=== PATIENT | male | born 1980 | race Caucasian/White ===

== ENCOUNTER 2018-03-14 12:51 | Emergency (ER) | payer SELFPAY ==
[~2018-03-14] VITALS: Ht 180.3 cm; Wt 83.9 kg
[~2018-03-14 12:51] MED LIST: ACETAMINOPHEN-1 EAC1 ORAL; BACTRIM DS TAB1 EAC1 ORAL; CEPHALEXIN500 MG ORAL; CLINDAMYCIN HC300 MG ORAL; IBUPROFEN800 MG ORAL; KEFLEX500 MG ORAL; NKM; NORCO 5-325 TA1 EACH ORAL
[2018-03-14 13:41] VITALS: BP 128/78
[2018-03-14] MEDS ORDERED: Ketorolac 30mg Inj IV ONE (13:45)
[2018-03-14] MEDS ORDERED: Isovue-300 100ml vial INJ PRN (13:45)
--- NOTE | 2018-03-14 14:15 | Emergency Room Report ---
History of Present Illness General Chief Complaint: Lower Back Pain or Injury Source: Patient (Omkar Founrier M.D.) Present Illness HPI The patient presents with 3 days of headache and back pain. The back pain is lumbar area. They have headache is diffuse. She been severe. The patient denies any fevers or chills but has had sweats at night. The patient uses $40 or half a gram of heroin a day. He denies HIV. He's never had pain like this before. He complains about numbness on both of his feet. Pain rated at 9/10, constant both head and lower back. Not radiating to legs or neck. No chest pain, dyspnea, NVD, dysuria. No other joint pain. No change vision. No SI or HI. He states he has tested negative for Hep C and HIV in the past, but does not know his status at this time. Treated in past for abscesses. (Omkar Fournier M.D.) Allergies: Coded Allergies: No Known Allergies (Unverified , 12/11/13) Patient History Past Medical History: see triage record Social History: Reports: smoking, drug use Social History Narrative Reviewed Nursing Documentation: PMH: Agreed; PSxH: Agreed (Omkar Fournier M.D.) Nursing Documentation-PMH Past Medical History: No Stated History Hx Cardiac Problems: No Hx Hypertension: No Hx Pacemaker: No Hx Asthma: No Hx COPD: No Hx Diabetes: No Hx Cancer: No Hx Gastrointestinal Problems: No Hx Dialysis: No Hx Cerebrovascular Accident: No Hx Seizures: No (Omkar Fournier M.D.) Review of Systems All Other Systems: negative except mentioned in HPI (Omkar Fournier M.D.) Physical Exam Vital Signs Date Time Temp Pulse Resp B/P (MAP) Pulse Ox O2 Delivery O2 Flow Rate FiO2 03/14/18 13:21 98.9 98 16 128/82 96 Room Air 99.0 Sp02 EP Interpretation: reviewed, normal General Appearance: no apparent distress, GCS 15, non-toxic, thin Head: normocephalic Eyes: bilateral eye normal inspection, bilateral eye PERRL, bilateral eye EOMI ENT: moist mucus membranes Neck: supple, no meningismus, no bony tend Respiratory: chest non-tender, lungs clear, normal breath sounds Cardiovascular #1: regular rate, rhythm Cardiovascular #2: 2+ radial (R) Gastrointestinal: normal inspection, normal bowel sounds, non tender, no mass, non-distended, scaphoid Musculoskeletal: gait/station normal, normal range of motion, tender - lumbar area, more diffuse, not point or bone tenderness Neurologic: alert, oriented x3, motor strength/tone normal, DTRs symmetric, cerebellar normal, normal gait, sensory deficit Psychiatric: mood/affect normal Skin: warm/dry, other - track siegel (Omkar Fournier M.D.) Medical Decision Making Diagnostic Impression: Primary Impression: Low back pain Qualified Codes: M54.5 - Low back pain Additional Impression: Headache Qualified Codes: R51 - Headache ER Course Patient presents with IV drug abuse, headache and back pain. Differential includes migraine, withdrawal, abscess, subacute bacterial endocarditis amongst others. Patient is high risk for several serious drug related complications. Evaluation will be with EKG, CT of the head and lumbar spine with contrast, blood cultures, lactate, sedimentation rate and other labs. The patient will be treated with IV hydration and Toradol. At this point there is no meningismus and lumbar puncture is not indicated. Depending on what labs are will be a low threshold for starting IV antibiotics. Delay with labs and IV. Labs and CT pending. Pain somewhat improved with analgesia. Signed out to Dr. Berkowitz. (Omkar Fournier M.D.) ER Course Hospital Course 37-year-old male presented with headache and back spasms. History of IV drug use Clinical course Patient initially seen and evaluated by Dr Fournier; please see his note for full history and physical Upon sign out to me patient was pending IV access, lab draw and CT of head and L -spine with contrast IV access ultimately established but unable to draw blood. Multiple attempts by phlebotomy made to draw blood but unsuccessful. Respiratory therapist unable to perform arterial stick. I performed femoral stick to obtain blood Labs - minimal leukocytosis, eletrolytes ok CT of head and CT of L-spine with contrast showed no evidence of acute processes. No evidence of epidural abscess On reassessment patient is feeling better. No fever. No nuchal rigidity. No focal neurological deficits. Initially there was discussion of admitting the patient for concern of IV drug use and possible epidural abscess. Given normal labs and negative workup I believe patient could be discharged. Patient states he would prefer to be discharged to home I feel this is a highly complex case requiring extensive working including EKG/ Rhythm strip, Xray/CT/US, Blood/urine lab work, repeat exams while in ED, and administration of strong opiates/narcotics for pain control, admission to hospital or close patient follow up. Diagnosis - low back pain, headache Stable and discharged to home with Rx Tramadol, Robaxin, Motrin. Followup with PMD. Return to ED if symptoms recur or worsen Labs Test 03/14/18 15:00 03/14/18 15:06 03/14/18 18:20 Urine Color Ruth Urine Appearance Clear Urine pH 6 (4.5-8.0) Urine Specific [place] 1.015 (1.005-1.035) Urine Protein 2+ (NEGATIVE) Urine Glucose (UA) Negative (NEGATIVE) Urine Ketones 1+ (NEGATIVE) Urine Occult Blood 1+ (NEGATIVE) Urine Nitrite Negative (NEGATIVE) Urine Bilirubin 1+ (NEGATIVE) Urine Ictotest Negative Urine Urobilinogen 12 MG/DL (0.0-1.0) Urine Leukocyte Esterase 1+ (NEGATIVE) Urine RBC 0-2 /HPF (0 - 0) Urine WBC 2-4 /HPF (0 - 0) Urine Squamous Epithelial Cells None /LPF (NONE/OCC) Urine Bacteria Few /HPF (NONE) Urine Mucus Many /LPF (NONE/OCC) Urine Opiates Screen Positive (NEGATIVE) Urine Barbiturates Screen Negative (NEGATIVE) Phencyclidine (PCP) Screen Negative (NEGATIVE) Urine Amphetamines Screen Positive (NEGATIVE) Urine Benzodiazepines Screen Negative (NEGATIVE) Urine Cocaine Screen Negative (NEGATIVE) Urine Marijuana (THC) Screen Positive (NEGATIVE) White Blood Count 12.6 K/UL (4.8-10.8) Red Blood Count 4.04 M/UL (4.70-6.10) Hemoglobin 11.5 G/DL (14.2-18.0) Hematocrit 33.3 % (42.0-52.0) Mean Corpuscular Volume 82 FL (80-99) Mean Corpuscular Hemoglobin 28.4 PG (27.0-31.0) Mean Corpuscular Hemoglobin Concent 34.5 G/DL (32.0-36.0) Red Cell Distribution Width 12.1 % (11.6-14.8) Platelet Count 204 K/UL (150-450) Mean Platelet Volume 7.1 FL (6.5-10.1) Neutrophils (%) (Auto) 75.1 % (45.0-75.0) Lymphocytes (%) (Auto) 17.3 % (20.0-45.0) Monocytes (%) (Auto) 6.7 % (1.0-10.0) Eosinophils (%) (Auto) 0.1 % (0.0-3.0) Basophils (%) (Auto) 0.9 % (0.0-2.0) Erythrocyte Sedimentation Rate 94 MM/HR (0-15) Prothrombin Time 11.9 SEC (9.30-11.50) Prothromb Time International Ratio 1.1 (0.9-1.1) Activated Partial Thromboplast Time 32 SEC (23-33) Sodium Level 133 MMOL/L (136-145) Potassium Level 3.7 MMOL/L (3.5-5.1) Chloride Level 99 MMOL/L (98-107) Carbon Dioxide Level 24 MMOL/L (21-32) Anion Gap 10 mmol/L (5-15) Blood Urea Nitrogen 13 mg/dL (7-18) Creatinine 0.7 MG/DL (0.55-1.30) Estimat Glomerular Filtration Rate > 60 mL/min (>60) Glucose Level 115 MG/DL (74-106) Lactic Acid Level 1.00 mmol/L (0.4-2.0) Calcium Level 8.2 MG/DL (8.5-10.1) Phosphorus Level 2.9 MG/DL (2.5-4.9) Magnesium Level 1.6 MG/DL (1.8-2.4) Total Bilirubin 0.6 MG/DL (0.2-1.0) Aspartate Amino Transf (AST/SGOT) 26 U/L (15-37) Alanine Aminotransferase (ALT/SGPT) 28 U/L (12-78) Alkaline Phosphatase 132 U/L (46-116) Total Creatine Kinase 26 U/L (26-308) Creatine Kinase MB 0.5 NG/ML (0.0-3.6) Creatine Kinase MB Relative Index 1.9 Troponin I 0.000 ng/mL (0.000-0.056) Pro-B-Type Natriuretic Peptide 321 pg/mL (0-125) Total Protein 7.4 G/DL (6.4-8.2) Albumin 2.6 G/DL (3.4-5.0) Globulin 4.8 g/dL Albumin/Globulin Ratio 0.5 (1.0-2.7) Serum Alcohol < 3 mg/dL (Teofilo Berkowitz MD) EKG Diagnostic Results Rate: normal Rhythm: NSR ST Segments: no acute changes (Omkar Fournier M.D.) Rhythm Strip Diag. Results EP Interpretation: yes Rhythm: NSR, no PVC's, no ectopy (Omkar Fournier M.D.) Chest X-Ray Diagnostic Results Chest X-Ray Diagnostic Results : Chest X-Ray Ordered: Yes # of Views/Limited/Complete: 1 View Indication: Other EP Interpretation: Yes Interpretation: no consolidation, no effusion, no pneumothorax Impression: Other Electronically Signed by: Electronically signed by Omkar Fournier MD (Omkar Fournier M.D.) CT/MRI/US Diagnostic Results CT/MRI/US Diagnostic Results #1: Imaging Test Ordered: CT HEad Impression no acute process CT/MRI/US Diagnostic Results #2: Imaging Test Ordered: CT L spine Impression no acute process (Teofilo Berkowitz MD) Last Vital Signs Date Time Temp Pulse Resp B/P (MAP) Pulse Ox O2 Delivery O2 Flow Rate FiO2 03/14/18 18:51 98.4 03/14/18 13:41 90 17 128/78 100 Room Air Status: improved (Omkar Fournier M.D.) Status: improved (Teofilo Berkowitz MD) Disposition: HOME, SELF-CARE Condition: Stable Scripts Methocarbamol* (ROBAXIN-750*) 750 Mg Tablet 750 MG PO TID, #21 TAB 0 Refills Prov: Teofilo Berkowitz MD 03/14/18 Ibuprofen* (MOTRIN*) 600 Mg Tablet 600 MG ORAL Q8H PRN for For Pain, #30 TAB 0 Refills Prov: Teofilo Berkowitz MD 03/14/18 Tramadol Hcl* (ULTRAM*) 50 Mg Tablet 50 MG ORAL Q6H PRN for For Pain, #30 TAB 0 Refills Prov: Teofilo Berkowitz MD 03/14/18 Referrals: NOT CHOSEN [facility]/,REFERRING (PCP) Omkar Fournier M.D. Mar 14, 2018 14:15 Teofilo Berkowitz MD Mar 14, 2018 22:33
--- NOTE | 2018-03-14 15:24 | Diagnostic Imaging Report ---
Indication: Chest pain Comparison: None A single view chest radiograph was obtained. Findings: Cardiomediastinal appearance is within normal limits for age. Pulmonary vascularity is appropriate. The diaphragmatic contour is smooth and costophrenic angles are sharp. No pleural effusions are identified. The bones are unremarkable. Impression: No acute findings
[2018-03-14 15:54] LABS: APPEARANCE,URINE CLEAR; BILIRUBIN, URINE 1+ (NEGATIVE); GLUCOSE, URINE (UA) NEGATIVE (NEGATIVE); KETONES,URINE 1+ (NEGATIVE); LEUKOCYTE ESTERASE ,URINE 1+ (NEGATIVE); NITRITE,URINE NEGATIVE (NEGATIVE); PH,URINE 6 (4.5-8.0); PROTEIN,URINE 2+ (NEGATIVE); UROBILINOGEN,URINE 12 MG/DL (0.0-1.0)
[2018-03-14 15:56] LABS: COLOR,URINE AMBER
[2018-03-14] MEDS ORDERED: Acetaminophen 500mg (ES) tab PO ONE (18:45)
[2018-03-14] MEDS ORDERED: Methocarbamol 750mg tab ORAL ONE (18:45)
[2018-03-14 18:52] LABS: BASOPHILS % (AUTO) 0.9 % (0.0-2.0); EOSINOPHILS % (AUTO) 0.1 % (0.0-3.0); HEMATOCRIT 33.3 % (42.0-52.0); HEMOGLOBIN 11.5 G/DL (14.2-18.0); LYMPHOCYTES % (AUTO) 17.3 % (20.0-45.0); MEAN CORPUSCULAR VOLUME 82 FL (80-99); MONOCYTES % (AUTO) 6.7 % (1.0-10.0); NEUTROPHILS % (AUTO) 75.1 % (45.0-75.0); PLATELET COUNT 204 K/UL (150-450); RED BLOOD COUNT 4.04 M/UL (4.70-6.10); RED CELL DISTRIBUTION WIDTH 12.1 % (11.6-14.8); WHITE BLOOD COUNT 12.6 K/UL (4.8-10.8)
[2018-03-14 19:10] LABS: INR 1.1 (0.9-1.1)
[2018-03-14 19:13] LABS: ANION GAP 10 mmol/L (5-15); BLOOD UREA NITROGEN 13 mg/dL (7-18); CALCIUM 8.2 MG/DL (8.5-10.1); CARBON DIOXIDE 24 MMOL/L (21-32); CHLORIDE 99 MMOL/L (98-107); CREATININE 0.7 MG/DL (0.55-1.30); POTASSIUM 3.7 MMOL/L (3.5-5.1); SODIUM 133 MMOL/L (136-145)
[2018-03-14 19:29] LABS: ALANINE AMINOTRANSFERASE 28 U/L (12-78); ALBUMIN 2.6 G/DL (3.4-5.0); ALBUMIN/GLOBULIN RATIO 0.5 (1.0-2.7); ALKALINE PHOSPHATASE 132 U/L (46-116); ASPARTATE AMINO TRANSFERASE 26 U/L (15-37); BILIRUBIN,TOTAL 0.6 MG/DL (0.2-1.0); CKMB 0.5 NG/ML (0.0-3.6); CREATINE KINASE 26 U/L (26-308); PHOSPHORUS 2.9 MG/DL (2.5-4.9)
[2018-03-14 20:00] VITALS: BP 138/89
[2018-03-14] MEDS: Morphine Sulfate 4mg/ml Inj IVP ONE ×2 (20:30→21:16)
[2018-03-14] MEDS ORDERED: ROBAXIN-750750 MG PO (21:54)
[2018-03-14] MEDS ORDERED: IBUPROFEN600 MG ORAL (21:54)
[2018-03-14] MEDS ORDERED: TRAMADOL HCL50 MG ORAL (21:54)
[2018-03-14 22:35] VITALS: BP 125/77
--- NOTE | 2018-03-15 08:43 | Diagnostic Imaging Report ---
Indication: Headache. Possible intracranial abscess. Technique: CT of the head without and with contrast. Noncontrast CT scanning of the head was performed utilizing automated exposure control for dose reduction. Axial and coronal reconstructions were obtained. Subsequently, IV contrast was administered and post contrast CT of the head was performed utilizing automated exposure control for dose reduction. Axial and coronal reconstructions obtained. Comparison: None CT dose: Total DLP 3294.43 mGycm; CTDI vol 70.38,70.38,14.88 mGy Findings: Is no that postcontrast images are degraded by patient motion, particularly degrading images through the vertex and superior brain. Within these limitations the following observations are made: There is no acute intracranial hemorrhage, mass effect or cortical edema. The ventricles, cisterns and sulci are within normal limits for age. No definite focus of abnormal postcontrast enhancement visualized vascular structures appear grossly patent however please note this evaluation is not protocoled for vascular evaluation. Mastoid air cells are clear. There is mild paranasal sinus mucosal thickening. No focal lesions of the bony calvarium or soft tissues of the scalp are seen. IMPRESSION: No evidence of acute intracranial hemorrhage, mass effect or cortical edema. No definite focus of abnormal postcontrast enhancement however postcontrast images are degraded by patient motion. MRI may be obtained for more sensitive evaluation as clinically indicated. The CT scanner at [facility] is accredited by the [employer] and the scans are performed using protocols designed to limit radiation exposure to as low as reasonably achievable to attain images of sufficient resolution adequate for diagnostic evaluation.
--- NOTE | 2018-03-15 09:04 | Diagnostic Imaging Report ---
Indication: Back pain. Possible abscess Technique: CT of the lumbar spine with intravenous contrast performed utilizing automated exposure control for dose reduction. Axial and coronal reconstructions obtained. Comparison: None CT dose: Total DLP 3294.43 mGycm; CTDI vol 70.38,70.38,14.88 mGy Findings: There are 5 nonrib-bearing lumbar-type vertebral bodies, assuming 12 paired ribs. There is no evidence of acute fracture. Vertebral body heights and disc spaces are maintained. No evidence to suggest spondylolisthesis. No obvious significant bony central canal stenosis or bony foraminal narrowing. No prevertebral soft tissue abnormality is identified. No well-defined/drainable fluid collection is appreciated. Please note that the central canal, epidural space, cord, disks and nerve roots are better evaluated on MRI, which can be obtained as clinically indicated for more sensitive evaluation. Imaged lung bases are clear. Imaged portions of the visceral abdomen and pelvis are grossly unremarkable. Abdominal aorta is normal in caliber. IMPRESSION: * No evidence of acute fracture or malalignment. * No definite focal soft tissue abnormality. This corresponds with the statrad preliminary report. MRI of the lumbar spine can be obtained for more sensitive evaluation as clinically indicated. The CT scanner at [facility] is accredited by the [employer] and the scans are performed using protocols designed to limit radiation exposure to as low as reasonably achievable to attain images of sufficient resolution adequate for diagnostic evaluation.
--- NOTE | 2018-03-17 12:20 | Cardiology Report ---
APPROVED REPORT EKG Measurement Heart [id number] Normal sinus rhythm Cannot rule out Anterior infarct, age undetermined Abnormal ECG
== END 2018-03-14 22:33 | disposition home or self-care (01) ==
LOC: EMR 14:02 → UNDOADMIN 15:01 → 4W 15:01 → EDBEDREQ 15:05 → 4W 15:57 → EMR 22:33
DX: M54.5 Low back pain (principal); R51 Headache; F17.200 Nicotine dependence, unspecified, uncomplicated; F11.10 Opioid abuse, uncomplicated
CPT/HCPCS: 36415; 70460; 71045; 72132; 80053; 80307; 81003; 82550; 82553; 83605; 83735; 83880; 84100; 84484; 85025; 85610; 85651; 85730; 87040; 87181; 93005; 99284; G0480; J1885; J2270; Q9967; 80329

== ENCOUNTER 2018-03-21 16:37 | Emergency (ER) | payer SELFPAY ==
[~2018-03-21 16:37] MED LIST changes: +IBUPROFEN600 MG ORAL; +ROBAXIN-750750 MG PO; +TRAMADOL HCL50 MG ORAL
--- NOTE | 2018-03-21 20:00 | Emergency Room Report ---
History of Present Illness General Chief Complaint: To Be Triaged Present Illness HPI This patient left prior to evaluation by medical provider. Allergies: Coded Allergies: No Known Allergies (Unverified , 12/11/13) Nursing Documentation-PMH Hx Cardiac Problems: No Hx Hypertension: No Hx Pacemaker: No Hx Asthma: No Hx COPD: No Hx Diabetes: No Hx Cancer: No Hx Gastrointestinal Problems: No Hx Dialysis: No Hx Cerebrovascular Accident: No Hx Seizures: No Medical Decision Making PA Attestation Dr. Muñoz is my supervising Physician whom patient management has been discussed with. Diagnostic Impression: Primary Impression: left without being seen ER Course This patient left prior to evaluation by medical provider. Disposition: LEFT W/OUT BEING SEEN Condition: Unknown Referrals: NOT CHOSEN [facility]/,REFERRING (PCP) Sue Lopez Mar 21, 2018 20:00
== END 2018-03-21 16:50 | disposition left against medical advice (07) ==
LOC: EMR 16:50
DX: Z53.21 Procedure and treatment not carried out due to patient leaving prior to being seen by health care provider (principal)
CPT/HCPCS: 99281

== ENCOUNTER 2018-03-22 11:19 | Inpatient (IN) | payer MEDICAID ==
[~2018-03-22] VITALS: Ht 180.3 cm; Wt 97.5 kg
[2018-03-22] VITALS (10 sets, daily range): BP systolic 92–149; BP diastolic 50–90
[2018-03-22] MEDS ORDERED: Vancomycin 1 GM in NS 275 ML IV ONE (12:00)
[2018-03-22] MEDS ORDERED: Cefepime HCl 1 GM in NS 55 ML IV SCH (12:00)
[2018-03-22 13:06] LABS: APPEARANCE,URINE TURBID; BILIRUBIN, URINE 2+ (NEGATIVE); GLUCOSE, URINE (UA) NEGATIVE (NEGATIVE); KETONES,URINE NEGATIVE (NEGATIVE); LEUKOCYTE ESTERASE ,URINE 2+ (NEGATIVE); NITRITE,URINE NEGATIVE (NEGATIVE); PH,URINE 5 (4.5-8.0); PROTEIN,URINE 2+ (NEGATIVE); UROBILINOGEN,URINE 12 MG/DL (0.0-1.0)
[2018-03-22 13:07] LABS: COLOR,URINE YELLOW
[2018-03-22 13:24] LABS: HEMOGLOBIN 11.4 G/DL (14.2-18.0); MEAN CORPUSCULAR VOLUME 80 FL (80-99); PLATELET COUNT 60 K/UL (150-450); RED CELL DISTRIBUTION WIDTH 12.6 % (11.6-14.8); WHITE BLOOD COUNT 19.9 K/UL (4.8-10.8)
[2018-03-22 13:58] LABS: ALANINE AMINOTRANSFERASE 33 U/L (12-78); ALBUMIN 1.6 G/DL (3.4-5.0); ALBUMIN/GLOBULIN RATIO 0.3 (1.0-2.7); ALKALINE PHOSPHATASE 274 U/L (46-116); ANION GAP 9 mmol/L (5-15); ASPARTATE AMINO TRANSFERASE 46 U/L (15-37); BILIRUBIN,TOTAL 3.3 MG/DL (0.2-1.0); BLOOD UREA NITROGEN 28 mg/dL (7-18); CALCIUM 7.6 MG/DL (8.5-10.1); CARBON DIOXIDE 27 MMOL/L (21-32); CHLORIDE 88 MMOL/L (98-107); CKMB < 0.5 NG/ML (0.0-3.6); CREATINE KINASE 17 U/L (26-308); CREATININE 1.3 MG/DL (0.55-1.30); POTASSIUM 2.5 MMOL/L (3.5-5.1); SODIUM 124 MMOL/L (136-145)
[2018-03-22] MEDS ORDERED: Lidocaine 1% MPF 10mg/ml 5ml INJ ONE (14:30)
[2018-03-22] MEDS ORDERED: Lidocaine 1% MPF 10mg/ml 5ml ONE (14:33)
--- NOTE | 2018-03-22 14:53 | Diagnostic Imaging Report ---
Indication: Shortness of breath Technique: One view of the chest Comparison: 03/14/2018 Findings: Interim development of diffuse bilateral interstitial disease and innumerable bilateral subcentimeter nodular opacities. There is blunting of the left costophrenic sulcus and equivocally of the right. The heart size is normal. Impression: Diffuse extensive bilateral interstitial disease and subcentimeter nodules, rapid development of which suggests pulmonary edema versus rapidly developing interstitial infiltrates. Multinodularity raises concern for multiple septic emboli. Possible bilateral pleural effusions Findings discussed by phone with Dr. Eddy at the time of interpretation
--- NOTE | 2018-03-22 15:05 | Emergency Room Report ---
History of Present Illness General Chief Complaint: Pain Source: Patient Present Illness Allergies: Coded Allergies: No Known Allergies (Unverified , 12/11/13) Nursing Documentation-[facility] Past Medical History: No History, Except For Hx Cardiac Problems: No Hx Hypertension: No Hx Pacemaker: No Hx Asthma: No Hx COPD: No Hx Diabetes: No Hx Cancer: No Hx Gastrointestinal Problems: No Hx Dialysis: No Hx Cerebrovascular Accident: No Hx Seizures: No Physical Exam Vital Signs Date Time Temp Pulse Resp B/P (MAP) Pulse Ox O2 Delivery O2 Flow Rate FiO2 03/22/18 11:21 99.0 129 14 102/61 87 Room Air 99.0 Procedures Central Line Central Line : Consent: Emergent Central Line Lumen: triple Maximal Sterile Barrier Tech: yes cap, yes mask, yes sterile gown, yes sterile gloves, yes large sterile sheet, yes hand hygiene, yes chlorhexidine prep Central Line Postion: internal jugular (R) Anesthesia: local cc's of anesthesia: 5 Complications: none Central Line Post Position: sutured, good blood return, position confirmed w / CXR Attempts: One Patient Tolerated: Well Complications: None Medical Decision Making Last Vital Signs Date Time Temp Pulse Resp B/P (MAP) Pulse Ox O2 Delivery O2 Flow Rate FiO2 03/22/18 13:55 99.0 118 22 110/62 99 Room Air 99.0 Referrals: NOT CHOSEN [facility]/,REFERRING (PCP) Jaswant Salgado MD Mar 22, 2018 15:05
--- NOTE | 2018-03-22 15:13 | Emergency Room Report ---
History of Present Illness General Chief Complaint: Pain Source: Patient Present Illness HPI This patient has a history of heroin abuse. He states that he has had swelling in his legs and pain in his legs for the past few days. He states he also doesn 't feel well. He states that he last used heroin last night. He states most of his symptoms occurred over the past day. He states he is unable to walk secondary to pain in his legs. He has no other complaints. Allergies: Coded Allergies: No Known Allergies (Unverified , 12/11/13) Patient History Past Medical History: none, see triage record Social History: Reports: drug use - IV heroin Reviewed Nursing Documentation: PMH: Agreed; PSxH: Agreed Nursing Documentation-PMH Past Medical History: No History, Except For Hx Cardiac Problems: No Hx Hypertension: No Hx Pacemaker: No Hx Asthma: No Hx COPD: No Hx Diabetes: No Hx Cancer: No Hx Gastrointestinal Problems: No Hx Dialysis: No Hx Cerebrovascular Accident: No Hx Seizures: No Review of Systems All Other Systems: negative except mentioned in HPI Physical Exam Vital Signs Date Time Temp Pulse Resp B/P (MAP) Pulse Ox O2 Delivery O2 Flow Rate FiO2 03/22/18 11:21 99.0 129 14 102/61 87 Room Air 99.0 Sp02 EP Interpretation: reviewed, normal General Appearance: no apparent distress, alert, GCS 15, non-toxic Head: normocephalic, atraumatic Eyes: bilateral eye normal inspection, bilateral eye PERRL ENT: hearing grossly normal, normal pharynx, no angioedema, normal voice Neck: full range of motion, supple/symm/no masses Respiratory: no respiratory distress, no retraction, no accessory muscle use, crackles, speaking full sentences Cardiovascular #1: no edema, tachycardia Gastrointestinal: normal bowel sounds, non tender, soft, non-distended, no guarding, no rebound Rectal: deferred Musculoskeletal: back normal, swelling - Non-blanching bright erythematous macules and petichiae bilateral feet and legs and other areas of skin. Neurologic: alert, oriented x3, responsive, motor strength/tone normal, sensory intact, speech normal Psychiatric: judgement/insight normal, memory normal, mood/affect normal, no suicidal/homicidal ideation Skin: warm/dry, well hydrated, rash - See above in [facility] Medical Decision Making Diagnostic Impression: Primary Impression: Septic embolism Additional Impressions: Bacteremia Endocarditis Severe sepsis ER Course This patient has a physical exam sequela consistent with bacteremia, endocarditis and multiple septic emboli. Likely this is secondary to IV drug abuse. The patient has a petechial/purpuric rash consistent with septic emboli. I suspect endocarditis. The patient also has a chest x-ray that appears to be consistent with multiple septic emboli to the lungs. Unfortunately, the patient's veins were very difficult to access given the long history of IV drug use. The patient's veins are very scarred. There were multiple other critical patients in the emergency department and the nursing staff was having difficulty obtaining peripheral IV access. A central line was placed for IV access. The patient was given broad-spectrum antibiotics and aggressive IV fluid resuscitation. The patient is a very poor prognosis. Patient is in a critical condition. This patient is critically ill. This patient required complex medical decision- making, aggressive intervention, extensive laboratory workup and monitoring. Critical care time: 40 minutes. Laboratory Tests Test 03/22/18 12:45 03/22/18 13:05 Urine Color Yellow Urine Appearance Turbid Urine pH 5 (4.5-8.0) Urine Specific [place] 1.010 (1.005-1.035) Urine Protein 2+ (NEGATIVE) H Urine Glucose (UA) Negative (NEGATIVE) Urine Ketones Negative (NEGATIVE) Urine Occult Blood 3+ (NEGATIVE) H Urine Nitrite Negative (NEGATIVE) Urine Bilirubin 2+ (NEGATIVE) H Urine Ictotest Positive Urine Urobilinogen 12 MG/DL (0.0-1.0) H Urine Leukocyte Esterase 2+ (NEGATIVE) H Urine RBC 5-10 /HPF (0 - 0) H Urine WBC 10-15 /HPF (0 - 0) H Urine Squamous Epithelial Cells Occasional /LPF Urine Bacteria Few /HPF (NONE) Urine Hyaline Casts 0-2 /LPF (NONE) H White Blood Count 19.9 K/UL (4.8-10.8) H Red Blood Count 4.10 M/UL (4.70-6.10) L Hemoglobin 11.4 G/DL (14.2-18.0) L Hematocrit 33.0 % (42.0-52.0) L Mean Corpuscular Volume 80 FL (80-99) Mean Corpuscular Hemoglobin 27.7 PG (27.0-31.0) Mean Corpuscular Hemoglobin Concent 34.4 G/DL (32.0-36.0) Red Cell Distribution Width 12.6 % (11.6-14.8) Platelet Count 60 K/UL (150-450) L Mean Platelet Volume 11.0 FL (6.5-10.1) H Neutrophils (%) (Auto) % (45.0-75.0) Lymphocytes (%) (Auto) % (20.0-45.0) Monocytes (%) (Auto) % (1.0-10.0) Eosinophils (%) (Auto) % (0.0-3.0) Basophils (%) (Auto) % (0.0-2.0) Differential Total Cells Counted 100 Neutrophils % (Manual) 71 % (45-75) Lymphocytes % (Manual) 12 % (20-45) L Monocytes % (Manual) 5 % (1-10) Eosinophils % (Manual) 1 % (0-3) Basophils % (Manual) 0 % (0-2) Band Neutrophils 11 % (0-8) H Platelet Estimate Decreased L Platelet Morphology Normal Hypochromasia 2+ Sodium Level 124 MMOL/L (136-145) L Potassium Level 2.5 MMOL/L (3.5-5.1) *L Chloride Level 88 MMOL/L (98-107) L Carbon Dioxide Level 27 MMOL/L (21-32) Anion Gap 9 mmol/L (5-15) Blood Urea Nitrogen 28 mg/dL (7-18) H Creatinine 1.3 MG/DL (0.55-1.30) Estimate Glomerular Filtration Rate > 60 mL/min (>60) Glucose Level 152 MG/DL (74-106) H Lactic Acid Level 2.00 mmol/L (0.4-2.0) Calcium Level 7.6 MG/DL (8.5-10.1) L Total Bilirubin 3.3 MG/DL (0.2-1.0) H Direct Bilirubin 3.0 MG/DL (0.0-0.3) H Aspartate Amino Transferase (AST) 46 U/L (15-37) H Alanine Aminotransferase (ALT) 33 U/L (12-78) Alkaline Phosphatase 274 U/L (46-116) H Total Creatine Kinase 17 U/L (26-308) L Creatine Kinase MB < 0.5 NG/ML (0.0-3.6) Creatine Kinase MB Relative Index Troponin I 0.000 ng/mL (0.000-0.056) Total Protein 6.7 G/DL (6.4-8.2) Albumin 1.6 G/DL (3.4-5.0) L Globulin 5.1 g/dL Albumin/Globulin Ratio 0.3 (1.0-2.7) L EKG Diagnostic Results Rate: tachycardiac Rhythm: other - S.tachycardia ST Segments: other - NSST Rhythm Strip Diag. Results EP Interpretation: yes Rate: 120's Rhythm: no PVC's, no ectopy, other - S.tachycardia Chest X-Ray Diagnostic Results Chest X-Ray Diagnostic Results : Chest X-Ray Ordered: Yes # of Views/Limited/Complete: 1 View EP Interpretation: No Interpretation: other - Impression: Diffuse extensive bilateral interstitial disease and subcentimeter. see official report. Impression: Other Last Vital Signs Date Time Temp Pulse Resp B/P (MAP) Pulse Ox O2 Delivery O2 Flow Rate FiO2 03/22/18 13:55 99.0 118 22 110/62 99 Room Air 99.0 Disposition: ADMITTED INPATIENT Condition: Critical Referrals: NOT CHOSEN [facility]/,REFERRING (PCP) Gretchen Grijalva DO Mar 22, 2018 15:13
[2018-03-22] MEDS ORDERED: Vancomycin 1gm inj IVPB ONE (16:01)
--- NOTE | 2018-03-22 16:17 | Diagnostic Imaging Report ---
Indication: Shortness of breath, status post line placement Technique: One view of the chest Comparison: 3 hours earlier Findings: Interim placement of right jugular central venous catheter, tip which projects at the high right atrium. No pneumothorax. Again demonstrated is diffuse interstitial disease and innumerable bilateral pulmonary nodular opacities. As previously, small bilateral pleural effusions are suspected. Impression: Interim right jugular central venous catheter placement, no radiographically evident, location. Otherwise stable findings, as described
[2018-03-22] MEDS ORDERED: Zolpidem 5mg tab ORAL PRN (18:45)
[2018-03-22] MEDS ORDERED: Milk of Magnesia 30ml Ud ORAL PRN (18:45)
[2018-03-22] MEDS ORDERED: LORazepam Inj 2mg/ml 1ml IV PRN (18:45)
[2018-03-22] MEDS ORDERED: Sodium Bicarbonate 50ml Carp IV ONE ×3 (19:30→19:45)
[2018-03-22] MEDS ORDERED: Vancomycin 1.5 GM/D5W 250ML IVPB SCH (20:00)
[2018-03-22] MEDS: Heparin 5000 units/ml inj SUBQ SCH (20:27)
[2018-03-22] MEDS: Piperacillin/Tazobactam 3.375 GM in D5W 110 ML IVPB SCH (22:00)
[2018-03-23] VITALS (18 sets, daily range): BP systolic 94–151; BP diastolic 59–100
[2018-03-23] MEDS ORDERED: Vancomycin 1.5 GM/D5W 250ML IVPB SCH (04:00)
[2018-03-23] MEDS: Vancomycin 1gm/D5W 275ml IVPB SCH ×4 (04:24→11:50)
[2018-03-23 05:27] LABS: HEMATOCRIT 27.2 % (42.0-52.0); HEMOGLOBIN 9.4 G/DL (14.2-18.0); MEAN CORPUSCULAR VOLUME 80 FL (80-99); PLATELET COUNT 43 K/UL (150-450); RED BLOOD COUNT 3.39 M/UL (4.70-6.10); RED CELL DISTRIBUTION WIDTH 12.7 % (11.6-14.8); WHITE BLOOD COUNT 18.2 K/UL (4.8-10.8)
[2018-03-23] MEDS: Piperacillin/Tazobactam 3.375 GM in D5W 110 ML IVPB SCH ×3 (05:35→22:03)
[2018-03-23 06:08] LABS: ALANINE AMINOTRANSFERASE 40 U/L (12-78); ALBUMIN 1.2 G/DL (3.4-5.0); ALBUMIN/GLOBULIN RATIO 0.3 (1.0-2.7); ALKALINE PHOSPHATASE 221 U/L (46-116); ANION GAP 7 mmol/L (5-15); ASPARTATE AMINO TRANSFERASE 72 U/L (15-37); BILIRUBIN,TOTAL 4.2 MG/DL (0.2-1.0); BLOOD UREA NITROGEN 23 mg/dL (7-18); CALCIUM 7.4 MG/DL (8.5-10.1); CARBON DIOXIDE 28 MMOL/L (21-32); CHLORIDE 100 MMOL/L (98-107); SODIUM 135 MMOL/L (136-145)
[2018-03-23 06:11] LABS: BILIRUBIN,DIRECT 3.7 MG/DL (0.0-0.3)
[2018-03-23] MEDS: Heparin 5000 units/ml inj SUBQ SCH ×2 (09:00→20:44)
[2018-03-23 12:11] LABS: INR 1.4 (0.9-1.1)
[2018-03-23] MEDS ORDERED: Milk of Magnesia 30ml Ud ORAL PRN ×2 (17:00→18:45)
[2018-03-23] MEDS ORDERED: D5W 275ml ONE (17:36)
[2018-03-23] MEDS ORDERED: NS 500ML ONE (17:36)
[2018-03-23] MEDS ORDERED: Tubing IV Secondary IV ONE (17:36)
--- NOTE | 2018-03-23 17:45 | History and Physical Report ---
DATE OF ADMISSION: 03/22/2018 REASON FOR ADMISSION: Possible septic emboli. HISTORY OF PRESENT ILLNESS: A 37-year-old unfortunate male who presents to the emergency room with swelling in the legs, pain over the past few days. Also, feels short of breath, has been using heroin. He has multiple track siegel, unable to walk secondary to pain in the leg. The patient is seen and evaluated. PAST MEDICAL HISTORY: Essentially as above. MEDICATIONS: None. SOCIAL HISTORY: IV heroin abuse. REVIEW OF SYSTEMS: Otherwise negative. PHYSICAL EXAMINATION: GENERAL: A well-developed male, on BiPAP. VITAL SIGNS: Respiratory rate 25, heart rate 106, temperature 98.6 degrees, blood pressure 128/75. HEENT: Negative. NECK: Supple. LUNGS: Fairly clear breath sounds. CARDIAC: S1 and S2, slightly tachycardic. ABDOMEN: Soft and nondistended. EXTREMITIES: No edema. LABORATORY DATA: All reviewed. Potassium is 3. Liver enzymes are elevated. Albumin is only 1.2. Blood gases noted 7.49/29/62. Urinalysis with 5 to 10 reds, 10 to 15 whites, 3+ occult blood, white count 18, hemoglobin 9.4, and platelets of 43,000. IMPRESSION: 1. Chest x-ray possibly consistent with septic emboli. 2. Heroin abuse. 3. Elevated liver enzymes of unclear significance. 4. Significantly reduced albumin. 5. Severe protein-calorie malnutrition versus significant liver disease. 6. Lower extremity edema. 7. Hypoxemia. 8. Tachycardia. 9. Leukocytosis. 10. Possible sepsis. RECOMMENDATIONS: IV hydration for now. We will obtain venous ultrasound to rule out DVT. IV antibiotics. Echocardiogram to rule out endocarditis. Infectious Disease evaluation to follow. Oxygenation has improved. Replace potassium. Obtain CT of the chest. Obtain CT of the abdomen. Obtain PT and PTT to assess for liver damage and monitor clinically for change and further recommendations. Paddy Boss M.D. DR: Tanya JOB#: [id number] CC: JOIE
[2018-03-23] MEDS ORDERED: LORazepam Inj 2mg/ml 1ml IV PRN (18:00)
[2018-03-23] MEDS ORDERED: Zolpidem 5mg tab ORAL PRN ×2 (18:45→21:00)
[2018-03-23] MEDS: Morphine Sulfate 4mg/ml Inj (IV USE ONLY) IVP PRN (19:17)
[2018-03-23] MEDS ORDERED: Vancomycin 1 GM in D5W 275 ML IVPB SCH ×4 (20:00)
[2018-03-23] MEDS ORDERED: Dyna-Hex 2% Top Sol 2oz TOPIC SCH ×3 (20:00)
[2018-03-23] MEDS ORDERED: Heparin 5000 units/ml inj SUBQ SCH (21:00)
[2018-03-23] MEDS ORDERED: Piperacillin/Tazobactam 3.375 GM in D5W 110 ML IVPB SCH ×4 (22:00)
[2018-03-23] MEDS: Morphine Sulfate 2mg/ml Inj(IV/IM USE ONLY) IVP PRN (22:43)
[2018-03-24] VITALS: BP 124/66
[2018-03-24] MEDS: Vancomycin 1.5 GM/D5W 250ML IVPB SCH ×2 (03:12→12:35)
[2018-03-24 04:00] VITALS: BP 112/59
[2018-03-24] MEDS: LORazepam Inj 2mg/ml 1ml IV PRN ×2 (04:01→10:29)
[2018-03-24 05:26] LABS: HEMATOCRIT 25.5 % (42.0-52.0); HEMOGLOBIN 8.8 G/DL (14.2-18.0); MEAN CORPUSCULAR VOLUME 80 FL (80-99); PLATELET COUNT 87 K/UL (150-450); RED BLOOD COUNT 3.18 M/UL (4.70-6.10); RED CELL DISTRIBUTION WIDTH 12.5 % (11.6-14.8)
[2018-03-24 05:29] LABS: ALANINE AMINOTRANSFERASE 31 U/L (12-78); ALBUMIN 1.1 G/DL (3.4-5.0); ALBUMIN/GLOBULIN RATIO 0.2 (1.0-2.7); ALKALINE PHOSPHATASE 194 U/L (46-116); ANION GAP 8 mmol/L (5-15); ASPARTATE AMINO TRANSFERASE 43 U/L (15-37); BILIRUBIN,TOTAL 2.5 MG/DL (0.2-1.0); BLOOD UREA NITROGEN 25 mg/dL (7-18); CALCIUM 7.5 MG/DL (8.5-10.1); CARBON DIOXIDE 26 MMOL/L (21-32); CHLORIDE 98 MMOL/L (98-107); CREATININE 1.1 MG/DL (0.55-1.30); SODIUM 132 MMOL/L (136-145)
[2018-03-24 05:30] LABS: WHITE BLOOD COUNT 23.3 K/UL (4.8-10.8)
[2018-03-24] MEDS: Piperacillin/Tazobactam 3.375 GM in D5W 110 ML IVPB SCH (05:43)
[2018-03-24 05:46] LABS: BILIRUBIN,DIRECT 2.1 MG/DL (0.0-0.3)
[2018-03-24 08:00] VITALS: BP 127/77
[2018-03-24] MEDS: Heparin 5000 units/ml inj SUBQ SCH ×2 (09:00→20:35)
--- NOTE | 2018-03-24 09:35 | General Progress Note ---
Assessment/Plan Assessment/Plan 1. Chest x-ray possibly consistent with septic emboli. 2. Heroin abuse. 3. Elevated liver enzymes of unclear significance. 4. Significantly reduced albumin. 5. Severe protein-calorie malnutrition versus significant liver disease. 6. Lower extremity edema. 7. Hypoxemia. 8. Tachycardia. 9. Leukocytosis. 10. Sepsis. PLAN ID and CT chest pending po diet follow up labs monitor wbc Subjective Allergies: Coded Allergies: No Known Allergies (Unverified , 12/11/13) Subjective bcx positive Objective Last 24 Hour Vital Signs Date Time Temp Pulse Resp B/P (MAP) Pulse Ox O2 Delivery O2 Flow Rate FiO2 03/24/18 04:00 98 03/24/18 04:00 97.9 86 20 112/59 (76) 97 97.9 03/24/18 00:00 97.0 89 22 124/66 (85) 95 97.0 03/24/18 00:00 95 03/23/18 21:00 Room Air 4.0 03/23/18 20:09 93 Nasal Cannula 3.0 32 03/23/18 20:09 Nasal Cannula 3.0 32 03/23/18 20:00 97 03/23/18 20:00 101.1 112 22 119/59 (79) 95 101.1 03/23/18 19:17 99.3 03/23/18 18:29 99.3 03/23/18 18:27 99.3 99.3 03/23/18 17:30 101.1 03/23/18 17:11 Room Air 4.0 03/23/18 17:01 101.1 128 24 151/96 (114) 98 101.1 03/23/18 16:38 125 03/23/18 16:00 99.2 101 104/72 (83) 99.2 03/23/18 16:00 Bi-pap 30.0 03/23/18 15:00 110 123/78 (93) 03/23/18 14:00 100 03/23/18 13:00 102 113/74 (87) 03/23/18 12:00 99.0 106 25 133/72 (92) 98 99.0 03/23/18 12:00 Bi-pap 30.0 03/23/18 12:00 109 03/23/18 11:00 100 29 94/66 (75) 100 03/23/18 10:00 105 28 141/79 (99) 99 Intake and Output 03/23/18 03/24/18 19:00 07:00 Intake Total 1900 ml 1322.800 ml Output Total 2100 ml Balance -200 ml 1322.800 ml Intake Oral 1800 ml IV Total 100 ml 1322.800 ml Output Urine Total 1600 ml Emesis 500 ml # Bowel Movements 2 Laboratory Tests 03/23/18 11:00: Erythrocyte Sedimentation Rate 54H, Prothrombin Time 14.9H, Prothromb Time International Ratio 1.4H 03/23/18 19:30: Vancomycin Level Trough 11.8 03/24/18 04:00: White Blood Count 23.3*H, Red Blood Count 3.18L, Hemoglobin 8.8L, Hematocrit 25.5L, Mean Corpuscular Volume 80, Mean Corpuscular Hemoglobin 27.6, Mean Corpuscular Hemoglobin Concent 34.4, Red Cell Distribution Width 12.5, Platelet Count 87#L, Mean Platelet Volume 9.1, Neutrophils (%) (Auto) , Lymphocytes (%) ( Auto) , Monocytes (%) (Auto) , Eosinophils (%) (Auto) , Basophils (%) (Auto) , Differential Total Cells Counted 100, Neutrophils % (Manual) 88H, Lymphocytes % (Manual) 4L, Monocytes % (Manual) 7, Eosinophils % (Manual) 0, Basophils % ( Manual) 0, Band Neutrophils 1, Platelet Estimate DecreasedL, Platelet Morphology Normal, Hypochromasia 1+, Microcytosis 1+, Sodium Level 132L, Potassium Level 3.0L, Chloride Level 98, Carbon Dioxide Level 26, Anion Gap 8, Blood Urea Nitrogen 25H, Creatinine 1.1, Estimat Glomerular Filtration Rate > 60 , Glucose Level 123H, Calcium Level 7.5L, Total Bilirubin 2.5H, Direct Bilirubin 2.1H, Aspartate Amino Transf (AST/SGOT) 43H, Alanine Aminotransferase (ALT/SGPT) 31, Alkaline Phosphatase 194H, Total Protein 5.9L, Albumin 1.1L, Globulin 4.8, Albumin/Globulin Ratio 0.2L Height (Feet): 5 Height (Inches): 11.00 Weight (Pounds): 197 Objective WDWN NAD clear breath sounds bilaterally without rhonchi or wheeze [id number] without MRG NABS nontender no HSM no CCE nonfocal Paddy Boss MD Mar 24, 2018 09:35
[2018-03-24] MEDS: Morphine Sulfate 2mg/ml Inj(IV/IM USE ONLY) IVP PRN (10:40)
[2018-03-24 12:00] VITALS: BP 135/81
--- NOTE | 2018-03-24 13:17 | Diagnostic Imaging Report ---
EXAM: CT Abdomen Without Intravenous Contrast CLINICAL HISTORY: LUMP TECHNIQUE: Axial computed tomography images of the abdomen without intravenous contrast. CTDI is 11.96 mGy and DLP is 395.39 mGy-cm. One or more of the following dose reduction techniques were used: automated exposure control, adjustment of the mA and/or kV according to patient size, use of iterative reconstruction technique. COMPARISON: No relevant prior studies available. FINDINGS: Lung bases: Partial visualization of bilateral layering pleural effusions with dependent consolidation bilateral lungs and scattered nodular densities in bilateral lung bases.. Liver: Unremarkable noncontrast appearance. Gallbladder and bile ducts: Unremarkable. No calcified stones. No ductal dilation. Pancreas: Unremarkable. No ductal dilation. Spleen: Unremarkable. No splenomegaly. Adrenals: Unremarkable. No mass. Kidneys and ureters: Unremarkable. No obstructing stones. No hydronephrosis. Stomach and bowel: No visible obstruction. No mucosal thickening in the abdominal portions of the bowel loops. Intraperitoneal space: Unremarkable. No free air. No significant fluid collection. Bones/joints: No acute fracture. No dislocation. No suspicious osseous lesions. Soft tissues: Unremarkable. Vasculature: Unremarkable. No abdominal aortic aneurysm. Lymph nodes: Unremarkable. No enlarged lymph nodes. IMPRESSION: 1. Partial visualization of bilateral layering pleural effusions with dependent consolidation bilateral lungs and scattered nodular densities in bilateral lung bases. 2. Otherwise unremarkable noncontrast CT of the abdomen.
--- NOTE | 2018-03-24 13:23 | Diagnostic Imaging Report ---
EXAM: CT Chest Without Intravenous Contrast CLINICAL HISTORY: Shortness of breath TECHNIQUE: Axial computed tomography images of the chest without intravenous contrast. CTDI is 21.04 mGy and DLP is 642.76 mGy-cm. One or more of the following dose reduction techniques were used: automated exposure control, adjustment of the mA and/or kV according to patient size, use of iterative reconstruction technique. COMPARISON: CT of the abdomen obtained 03/24/18 FINDINGS: Lungs: Innumerable scattered nodular densities in bilateral lungs, some of which contain cavitation. Dependent consolidation in bilateral lungs, which may be related to compressive atelectasis versus pneumonia. Pleural space: Mild to moderate bilateral pleural effusions. No pneumothorax. Heart: Hypodensity in the cardiac chambers may suggest anemia. No significant pericardial effusion. Bones/joints: Unremarkable. No acute fracture. No dislocation. Soft tissues: Unremarkable. Vasculature: Unremarkable. No thoracic aortic aneurysm. Lymph nodes: Numerous subcentimeter mediastinal and bilateral hilar lymph nodes, reactive versus metastatic. Tubes, lines and devices: Right IJ-approach central venous catheter with the tip at the SVC/right atrial junction. IMPRESSION: 1. Innumerable scattered nodular densities in bilateral lungs, some of which contain cavitation. These may be infectious versus metastatic. 2. Dependent consolidation in bilateral lungs, which may be related to compressive atelectasis versus pneumonia. 3. Numerous subcentimeter mediastinal and bilateral hilar lymph nodes, reactive versus metastatic. 4. Hypodensity in the cardiac chambers may suggest anemia.
[2018-03-24] MEDS: Morphine Sulfate 4mg/ml Inj (IV USE ONLY) IVP PRN ×5 (14:25→23:58)
--- NOTE | 2018-03-24 14:36 | Cardiology Progress Note ---
Assessment/Plan Assessment/Plan The patient is seen and examined, full consult note will be dictated. Objective Last 24 Hour Vital Signs Date Time Temp Pulse Resp B/P (MAP) Pulse Ox O2 Delivery O2 Flow Rate FiO2 03/24/18 14:25 97.9 03/24/18 11:10 97.9 03/24/18 10:40 97.9 03/24/18 09:00 Room Air 4.0 03/24/18 08:00 98 03/24/18 08:00 99.4 94 18 127/77 (94) 98 99.4 03/24/18 04:00 98 03/24/18 04:00 97.9 86 20 112/59 (76) 97 97.9 03/24/18 00:00 97.0 89 22 124/66 (85) 95 97.0 03/24/18 00:00 95 03/23/18 21:00 Room Air 4.0 03/23/18 20:09 93 Nasal Cannula 3.0 32 03/23/18 20:09 Nasal Cannula 3.0 32 03/23/18 20:00 97 03/23/18 20:00 101.1 112 22 119/59 (79) 95 101.1 03/23/18 19:17 99.3 03/23/18 18:29 99.3 03/23/18 18:27 99.3 99.3 03/23/18 17:30 101.1 03/23/18 17:11 Room Air 4.0 03/23/18 17:01 101.1 128 24 151/96 (114) 98 101.1 03/23/18 16:38 125 03/23/18 16:00 99.2 101 104/72 (83) 99.2 03/23/18 16:00 Bi-pap 30.0 03/23/18 15:00 110 123/78 (93) Intake and Output 03/23/18 03/24/18 19:00 07:00 Intake Total 1900 ml 1322.800 ml Output Total 2100 ml Balance -200 ml 1322.800 ml Intake Oral 1800 ml IV Total 100 ml 1322.800 ml Output Urine Total 1600 ml Emesis 500 ml # Bowel Movements 2 Laboratory Tests Test 03/23/18 19:30 03/24/18 04:00 Vancomycin Level Trough 11.8 ug/mL (5.0-12.0) White Blood Count 23.3 K/UL (4.8-10.8) *H Red Blood Count 3.18 M/UL (4.70-6.10) L Hemoglobin 8.8 G/DL (14.2-18.0) L Hematocrit 25.5 % (42.0-52.0) L Mean Corpuscular Volume 80 FL (80-99) Mean Corpuscular Hemoglobin 27.6 PG (27.0-31.0) Mean Corpuscular Hemoglobin Concent 34.4 G/DL (32.0-36.0) Red Cell Distribution Width 12.5 % (11.6-14.8) Platelet Count 87 K/UL (150-450) #L Mean Platelet Volume 9.1 FL (6.5-10.1) Neutrophils (%) (Auto) % (45.0-75.0) Lymphocytes (%) (Auto) % (20.0-45.0) Monocytes (%) (Auto) % (1.0-10.0) Eosinophils (%) (Auto) % (0.0-3.0) Basophils (%) (Auto) % (0.0-2.0) Differential Total Cells Counted 100 Neutrophils % (Manual) 88 % (45-75) H Lymphocytes % (Manual) 4 % (20-45) L Monocytes % (Manual) 7 % (1-10) Eosinophils % (Manual) 0 % (0-3) Basophils % (Manual) 0 % (0-2) Band Neutrophils 1 % (0-8) Platelet Estimate Decreased L Platelet Morphology Normal Hypochromasia 1+ Microcytosis 1+ Sodium Level 132 MMOL/L (136-145) L Potassium Level 3.0 MMOL/L (3.5-5.1) L Chloride Level 98 MMOL/L (98-107) Carbon Dioxide Level 26 MMOL/L (21-32) Anion Gap 8 mmol/L (5-15) Blood Urea Nitrogen 25 mg/dL (7-18) H Creatinine 1.1 MG/DL (0.55-1.30) Estimat Glomerular Filtration Rate > 60 mL/min (>60) Glucose Level 123 MG/DL (74-106) H Calcium Level 7.5 MG/DL (8.5-10.1) L Total Bilirubin 2.5 MG/DL (0.2-1.0) H Direct Bilirubin 2.1 MG/DL (0.0-0.3) H Aspartate Amino Transf (AST/SGOT) 43 U/L (15-37) H Alanine Aminotransferase (ALT/SGPT) 31 U/L (12-78) Alkaline Phosphatase 194 U/L (46-116) H Total Protein 5.9 G/DL (6.4-8.2) L Albumin 1.1 G/DL (3.4-5.0) L Globulin 4.8 g/dL Albumin/Globulin Ratio 0.2 (1.0-2.7) L Microbiology Date/Time Source Procedure Growth Status 03/22/18 13:05 Blood Blood Culture - Preliminary Gram Positive Cocci Resulted 03/22/18 12:55 Blood Blood Culture - Preliminary Gram Positive Cocci Resulted 03/22/18 17:25 Nasal Nares MRSA Culture - Final NO METHICILLIN RESISTANT STAPH AUREUS... Complete 03/22/18 12:45 Urine,Clean Catch Urine Culture - Final Staphylococcus Aureus Complete 03/22/18 17:25 Rectum VRE Culture - Final NO VANCOMYCIN RESISTANT ENTEROCOCCUS ... Complete Alvarado Lee MD Mar 24, 2018 14:36
[2018-03-24] MEDS ORDERED: ceFAZolin sod 2 GM in D5W 110 ML IVPB SCH (15:00)
[2018-03-24 16:00] VITALS: BP 128/73
[2018-03-24] MEDS ORDERED: Milk of Magnesia 30ml Ud ORAL PRN (17:00)
[2018-03-24 20:00] VITALS: BP 146/71
[2018-03-24] MEDS ORDERED: Vancomycin 1.5gm/D5W 250ml 250 ML IVPB SCH (20:00)
[2018-03-24] MEDS: Dyna-Hex 2% Top Sol 2oz TOPIC SCH (20:08)
[2018-03-24] MEDS ORDERED: Zolpidem 5mg tab ORAL PRN (21:00)
[2018-03-24] MEDS: ceFAZolin sod 2 GM in D5W 110 ML IVPB SCH (22:40)
[2018-03-25] VITALS (12 sets, daily range): BP systolic 122–152; BP diastolic 71–89
--- NOTE | 2018-03-25 | Consultation ---
DATE OF CONSULTATION: 03/24/2018 INFECTIOUS DISEASE CONSULTATION This consult is for coverage of Dr. Emanuel. CONSULTING PHYSICIAN: Rakesh Michaud M.D. PRIMARY ATTENDING PHYSICIAN: Paddy Boss M.D. REASON FOR CONSULT: Septic emboli versus endocarditis. HISTORY OF PRESENT ILLNESS: The patient is a 37-year-old white male admitted on March 22, 2018, because of shortness of breath, leg swelling, weakness, and fever. The patient states that the symptoms started 10 to 20 days ago. He has history of polysubstance abuse and injection of heroin. PAST MEDICAL HISTORY: Substance abuse. ALLERGIES: No known drug allergies. MEDICATIONS: Getting Protonix, vancomycin, Zosyn, heparin, Ambien, morphine, Zofran, Tylenol, lorazepam, Mylanta, and milk of magnesium. SOCIAL HISTORY: He has a male partner. Smoker, has history of smoking and heroin abuse. REVIEW OF SYSTEMS: Fever and malaise. No headache. No sore throat. Coughing with blood in it. No nausea. No vomiting. No diarrhea. No problem passing urine. There is lower leg rash. PHYSICAL EXAMINATION: VITAL SIGNS: Maximum temperature 101.9, current temperature 97, pulse 98, and blood pressure 127/77. GENERAL APPEARANCE: Seems to be well developed. HEAD AND NECK: Harvest conjunctiva. No oral lesion. HEART: Regular. Has right IJ central line. LUNGS: Clear. ABDOMEN: Soft and nontender. EXTREMITIES: Needle siegel in the upper extremity has erythema, edema and some petechial rash in lower extremities. LABORATORY AND DIAGNOSTIC DATA: Sodium 132, potassium 3, chloride 98, bicarbonate 26, BUN 25, creatinine 1.1, and glucose 127. Total bilirubin is 2.5 coming down from 5.2 yesterday. AST 43. Alkaline phosphatase was 194. Albumin is very low 1.1. The patient's x-ray that was suspecting of pulmonary edema, multiple septic emboli. An echocardiogram that showed some echodensity and tricuspid valve regurgitation. WBC 22.3, hemoglobin 8.8, hematocrit 25.5, and platelets are 87. Culture, blood culture x2 gram positive cocci. Urine culture grow staph aureus that is sensitive to oxacillin. MRSA and VRE screen are negative. IMPRESSION: 1. Tricuspid valve infective endocarditis. 2. The patient has bacteremia and septic emboli to the lung. 3. Anemia. 4. Hyperbilirubinemia. 5. The patient has history of polysubstance abuse including opiates, amphetamine, and marijuana and smoking. 6. Hypokalemia. RECOMMENDATION: We will continue with IV vancomycin. We will change Zosyn to Ancef. We will order tests for serology for HIV and hepatitis profile. We will follow up the cultures. At the end of my exam, I thank Dr. Boss, for involving me in the care of this patient. Rakesh Michaud M.D. DR: GIORGIO JOB#: [id number] CC: JOIE
--- NOTE | 2018-03-25 00:45 | Consultation ---
DATE OF CONSULTATION: 03/24/2018 CARDIOLOGY CONSULTATION CONSULTING PHYSICIAN: Alvarado Lee M.D. REFERRING PHYSICIAN: Paddy Boss M.D. REASON FOR CONSULTATION: Management of possible endocarditis. HISTORY OF PRESENT ILLNESS: The patient is a very unfortunate 37-year-old gentleman, who presents to the hospital with swelling of both lower extremities with associated pain in the past few days. The patient states that he has been a heroin addict and the last heroin abuse for just about a few days ago. He also has trouble with shortness of breath and not feeling well. He is unable to walk at this time. PAST MEDICAL HISTORY: None. SOCIAL HISTORY: He denies any tobacco, alcohol, but he has been an IV heroin user. FAMILY HISTORY: No premature coronary artery disease in the first-degree relatives. PAST SURGICAL HISTORY: None. MEDICATIONS: List of medication including methocarbamol 750 mg three times a day, ibuprofen 600 mg q. 8 hours, tramadol 50 mg q.6 hours for pain, clindamycin 300 mg four times a day, cephalexin 500 mg q.6 hours, Bactrim one tablet twice daily 160/800, hydrocodone and acetaminophen 5/325 mg one tablet q. 6 hours p.r.n. pain, and Tylenol No. 3 one tablet q. 8 hours for pain. REVIEW OF SYSTEMS: HEENT: Denies any headache, diplopia, or blurred vision. CONSTITUTIONAL: Denies any generalized weakness, fever, as well as night sweats. CARDIOVASCULAR: Denies any chest pain. He has a great deal of shortness of breath. Also lower extremity swelling, discoloration. Denies any palpitation or loss of consciousness. PULMONARY: Complains of shortness of breath, but no cough or wheezing. GASTROINTESTINAL: Denies any nausea, vomiting, diarrhea, constipation, or abdominal pain. GENITOURINARY: Denies any hematuria, dysuria, or incontinence. NEUROLOGIC: Denies any motor dysfunction, sensory deficit, or altered speech. MUSCULOSKELETAL: Complains of bilateral lower extremity edema as well as pain, associated rash. PHYSICAL EXAMINATION: VITAL SIGNS: Blood pressure at the time of arrival to the hospital was 102/61, pulse of 129, respirations 14, and O2 saturation 87% on room air. ABG showed hypoxemic respiratory failure. GENERAL: The patient is a very ill-appearing gentleman, in mild respiratory distress with nasal flaring. HEENT: Atraumatic and normocephalic. Anicteric. Conjunctival pallor is present. Pupils are equal, round, and reactive to light and accommodation. Extraocular muscles are intact. NECK: JVP is less than 5 cm. No carotid bruits. Carotid upstrokes 2+ bilaterally. CARDIOVASCULAR: Normal S1, S2. Regular rate and rhythm. Tachycardic. No murmurs, gallops, or rubs. PMI is at fourth intercostal space in the midclavicular line. LUNGS: Bilateral crackles. ABDOMEN: Soft, nontender, and nondistended. No hepatosplenomegaly. Positive bowel sounds. EXTREMITIES: Bilateral lower extremity edema. There are some patches of nonblanching erythematous rash, now painful to palpation. Some ankle edema. LABORATORY FINDINGS: A 2+ protein in the urine, 3+ blood, 2+ bilirubin, 5 to 10 rbc, 10 to 15 wbc. CBC showed white blood cell of 19.9, hemoglobin 11.4, hematocrit of 33, and platelet count is 60. Chemistry, sodium is 124, potassium is 2.5, chloride of 88, carbon dioxide 27, BUN of 28, creatinine 1.3, glucose 152, calcium is 7.6. Troponin I is 0. Albumin is 1.6. AST at 46, ALT 33, and alkaline phosphatase is 274. ASSESSMENT/PLAN: The patient is a very unfortunate ill-appearing 37-year-old male, who was seen in Cardiology consultation at request of Dr. Boss. 1. This patient has possibly major criteria for infective endocarditis. He is thrombocytopenic, has vasculitic rash to lower extremities. Chest x-ray shows septic emboli. The likelihood of tricuspid valve regurgitation is high given the suspicious density on the tricuspid valve. The patient will require a transesophageal echocardiography to verify the diagnosis. Blood culture needs to be done at least two to three sets. Continue with IV antibiotic therapy. 2. Hypoxemic respiratory failure. I would like to transfer the patient to [facility] as discussed ABG stat ordered. Informed the nurse to discuss the results with Dr. Boss, the primary care physician. This patient may require open heart surgery. 3. Systemic inflammatory response disease/septic embolization, bilateral infiltration is seen on the chest x-ray as well as CT of the chest. 4. Proteinuria with hypoalbuminemia. I would like to thank, Dr. Boss, for allowing me to participate in the care of this patient. Alvarado Lee M.D. DR: HARMEET JOB#: [id number] CC:
[2018-03-25] MEDS: Morphine Sulfate 4mg/ml Inj (IV USE ONLY) IVP PRN ×5 (04:42→18:47)
[2018-03-25 05:03] LABS: HEMATOCRIT 24.2 % (42.0-52.0); HEMOGLOBIN 8.1 G/DL (14.2-18.0); MEAN CORPUSCULAR VOLUME 81 FL (80-99); PLATELET COUNT 109 K/UL (150-450); RED BLOOD COUNT 2.98 M/UL (4.70-6.10); RED CELL DISTRIBUTION WIDTH 12.6 % (11.6-14.8); WHITE BLOOD COUNT 20.8 K/UL (4.8-10.8)
[2018-03-25 05:29] LABS: ALANINE AMINOTRANSFERASE 25 U/L (12-78); ALBUMIN 1.1 G/DL (3.4-5.0); ALBUMIN/GLOBULIN RATIO 0.2 (1.0-2.7); ALKALINE PHOSPHATASE 170 U/L (46-116); ANION GAP 9 mmol/L (5-15); ASPARTATE AMINO TRANSFERASE 32 U/L (15-37); BILIRUBIN,TOTAL 1.3 MG/DL (0.2-1.0); BLOOD UREA NITROGEN 26 mg/dL (7-18); CALCIUM 7.3 MG/DL (8.5-10.1); CARBON DIOXIDE 25 MMOL/L (21-32); CHLORIDE 97 MMOL/L (98-107); CREATININE 1.5 MG/DL (0.55-1.30); POTASSIUM 3.3 MMOL/L (3.5-5.1); SODIUM 130 MMOL/L (136-145)
[2018-03-25] MEDS: ceFAZolin sod 2 GM in D5W 110 ML IVPB SCH ×3 (06:30→21:10)
[2018-03-25] MEDS ORDERED: LR 1000ml 1,000 ML IVLG SCH (07:32)
[2018-03-25] MEDS ORDERED: DiphenhydrAMINE 50mg/ml Inj IVP PRN (07:45)
[2018-03-25] MEDS ORDERED: Atropine Inj 1mg/10ml Syr IV PRN (07:45)
[2018-03-25] MEDS ORDERED: Midazolam 2mg/2ml Inj IVP PRN (07:45)
[2018-03-25] MEDS ORDERED: fentaNYL 100 mcg/2 mL IV PRN (07:45)
[2018-03-25] MEDS ORDERED: Labetalol 5mg/ml 20ml vial IV PRN (07:45)
--- NOTE | 2018-03-25 08:25 | General Progress Note ---
Assessment/Plan Assessment/Plan 1. CT consistent with septic emboli. 2. Heroin abuse. 3. Elevated liver enzymes 4. Significantly reduced albumin. 5. Severe protein-calorie malnutrition 6. Lower extremity edema. negative venous 7. Hypoxemia. 8. Tachycardia. 9. Leukocytosis. 10. Sepsis. 11. possible endocarditis 12. coagulopathy PLAN ID appreciated po diet follow up labs monitor wbc may need transfusion [facility] care DELMA guarded d/w significant other Subjective Allergies: Coded Allergies: No Known Allergies (Unverified , 12/11/13) Subjective bcx positive CT noted cards appreciated for DELMA Objective Last 24 Hour Vital Signs Date Time Temp Pulse Resp B/P (MAP) Pulse Ox O2 Delivery O2 Flow Rate FiO2 03/25/18 08:05 98.4 03/25/18 05:12 98.6 03/25/18 04:42 98.6 03/25/18 04:41 98.5 115 22 126/76 (93) 95 98.5 03/25/18 03:36 86 03/25/18 00:00 102.5 108 22 146/71 (96) 95 102.5 03/25/18 00:00 91 03/24/18 23:58 100.0 03/24/18 21:09 100.0 03/24/18 21:00 Venturi Mask 15.0 03/24/18 21:00 98.6 98.6 03/24/18 20:49 102.5 03/24/18 20:10 102.5 03/24/18 20:00 106 03/24/18 20:00 102.5 108 22 146/71 (96) 95 102.5 03/24/18 19:34 95 Venturi Mask 15.0 55 03/24/18 19:34 Venturi Mask 15.0 55 03/24/18 17:33 98.2 03/24/18 16:30 105 03/24/18 16:00 106 03/24/18 16:00 98.2 102 22 128/73 (91) 93 98.2 03/24/18 14:55 97.9 03/24/18 14:25 97.9 03/24/18 12:00 101 03/24/18 12:00 99.8 102 18 135/81 (99) 93 99.8 03/24/18 11:10 97.9 03/24/18 10:40 97.9 03/24/18 09:00 Room Air 4.0 Intake and Output 03/24/18 03/25/18 19:00 07:00 Intake Total 880 ml 1570 ml Output Total 950 ml Balance -70 ml 1570 ml Intake Oral 420 ml IV Total 460 ml 1570 ml Output Urine Total 950 ml Laboratory Tests 03/24/18 15:12: Arterial Blood pH 7.540H, Arterial Blood Partial Pressure CO2 29.1L, Arterial Blood Partial Pressure O2 59.7L, Arterial Blood HCO3 24.7, Arterial Blood Oxygen Saturation 90.1L, Arterial Blood Base Excess 2.6, Elieser Test Positive 03/25/18 03:00: White Blood Count 20.8H, Red Blood Count 2.98L, Hemoglobin 8.1L, Hematocrit 24.2L, Mean Corpuscular Volume 81, Mean Corpuscular Hemoglobin 27.2, Mean Corpuscular Hemoglobin Concent 33.6, Red Cell Distribution Width 12.6, Platelet Count 109L, Mean Platelet Volume 8.8, Neutrophils (%) (Auto) , Lymphocytes (%) ( Auto) , Monocytes (%) (Auto) , Eosinophils (%) (Auto) , Basophils (%) (Auto) , Neutrophils % (Manual) [Pending], Lymphocytes % (Manual) [Pending], Platelet Estimate [Pending], Platelet Morphology [Pending], Erythrocyte Sedimentation Rate 115H, Sodium Level 130L, Potassium Level 3.3L, Chloride Level 97L, Carbon Dioxide Level 25, Anion Gap 9, Blood Urea Nitrogen 26H, Creatinine 1.5H, Estimat Glomerular Filtration Rate 53.0, Glucose Level 111H, Calcium Level 7.3L , Total Bilirubin 1.3H, Direct Bilirubin 1.0H, Aspartate Amino Transf (AST/SGOT ) 32, Alanine Aminotransferase (ALT/SGPT) 25, Alkaline Phosphatase 170H, Total Protein 5.8L, Albumin 1.1L, Globulin 4.7, Albumin/Globulin Ratio 0.2L, Vancomycin Level Trough 30.0H, Hepatitis A IgM Antibody [Pending], Hepatitis B Surface Antigen [Pending], Hepatitis B Surface Antibody, Quant [Pending], Hepatitis C Antibody [Pending], HIV (1&2) Antibody Rapid Negative Height (Feet): 5 Height (Inches): 11.00 Weight (Pounds): 196 Objective WDWN mild sob reduced breath sounds bilaterally without rhonchi or wheeze [id number] tachy without MRG NABS nontender no HSM no CC noted edema nonfocal Paddy Boss MD Mar 25, 2018 08:25
[2018-03-25] MEDS: Heparin 5000 units/ml inj SUBQ SCH ×2 (09:00→21:09)
[2018-03-25] MEDS ORDERED: Tubing IV Secondary IV ONE (11:02)
[2018-03-25] MEDS ORDERED: NS 275ml ONE (11:02)
--- NOTE | 2018-03-25 12:44 | Anethesia Preoperative Eval ---
Anesthesia Pre-op PMH/ROS General Date of Evaluation: Mar 25, 2018 Time of Evaluation: 13:00 Anesthesiologist: ASA Score: ASA 4 Mallampati Score Class I : Soft palate, uvula, fauces, pillars visible Class II: Soft palate, uvula, fauces visible Class III: Soft palate, base of uvula visible Class IV: Only hard plate visible Mallampati Classification: Class II Surgeon: maco Diagnosis: Endocarditis Surgical Procedure: DELMA Anesthesia History: none Social History: drug use - IVDA Heroin Allergies: Coded Allergies: No Known Allergies (Unverified , 12/11/13) Past Medical History Cardiovascular: Reports: valve dz - endocarditis; Denies: HTN, CAD, MO, arrhythmia, other Pulmonary: Reports: other - SOB; Denies: asthma, COPD, TANVIR Neurologic/Psychiatric: Denies: dementia, CVA, depression/anxiety, TIA, other Endocrine: Denies: DM, hypothyroidism, steroids, other HEENT: Denies: cataract (L), cataract (R), glaucoma, PAMUNKEY (L), PAMUNKEY (R), other Hematology/Immune: Reports: anemia, DVT, other - severe sepsis, septic embpoi Musculoskeletal/Integumentary: Denies: OA, RA, DJD, DDD, edema, other Anesthesia Pre-op Phys. Exam Physician Exam Last Vital Signs Date Time Temp Pulse Resp B/P (MAP) Pulse Ox O2 Delivery O2 Flow Rate FiO2 03/25/18 12:00 Venturi Mask 15.0 03/25/18 12:00 98.5 24 138/85 (102) 99 98.5 03/25/18 08:00 103 03/24/18 19:34 55 Constitutional: other - tachypnea, O2 venturi mask, general discomfort Cardiovascular: RRR Respiratory: CTA, other - SOB, h/o hypoxia Gastrointestinal: S/NT/ND Airway Exam Mallampati Score: Class II MO: full ROM: full Teeth: intact Dentures: no upper, no lower Anesthesia Pre-op A/P Labs Hematology Test 03/25/18 03:00 White Blood Count 20.8 K/UL (4.8-10.8) H Red Blood Count 2.98 M/UL (4.70-6.10) L Hemoglobin 8.1 G/DL (14.2-18.0) L Hematocrit 24.2 % (42.0-52.0) L Mean Corpuscular Volume 81 FL (80-99) Mean Corpuscular Hemoglobin 27.2 PG (27.0-31.0) Mean Corpuscular Hemoglobin Concent 33.6 G/DL (32.0-36.0) Red Cell Distribution Width 12.6 % (11.6-14.8) Platelet Count 109 K/UL (150-450) L Mean Platelet Volume 8.8 FL (6.5-10.1) Neutrophils (%) (Auto) % (45.0-75.0) Lymphocytes (%) (Auto) % (20.0-45.0) Monocytes (%) (Auto) % (1.0-10.0) Eosinophils (%) (Auto) % (0.0-3.0) Basophils (%) (Auto) % (0.0-2.0) Differential Total Cells Counted 100 Neutrophils % (Manual) 82 % (45-75) H Lymphocytes % (Manual) 12 % (20-45) L Monocytes % (Manual) 6 % (1-10) Eosinophils % (Manual) 0 % (0-3) Basophils % (Manual) 0 % (0-2) Band Neutrophils 0 % (0-8) Platelet Estimate Decreased L Platelet Morphology Normal Hypochromasia 1+ Microcytosis 1+ Erythrocyte Sedimentation Rate 115 MM/HR (0-15) H Chemistry Test 03/25/18 03:00 Sodium Level 130 MMOL/L (136-145) L Potassium Level 3.3 MMOL/L (3.5-5.1) L Chloride Level 97 MMOL/L (98-107) L Carbon Dioxide Level 25 MMOL/L (21-32) Anion Gap 9 mmol/L (5-15) Blood Urea Nitrogen 26 mg/dL (7-18) H Creatinine 1.5 MG/DL (0.55-1.30) H Estimat Glomerular Filtration Rate 53.0 mL/min (>60) Glucose Level 111 MG/DL (74-106) H Calcium Level 7.3 MG/DL (8.5-10.1) L Total Bilirubin 1.3 MG/DL (0.2-1.0) H Direct Bilirubin 1.0 MG/DL (0.0-0.3) H Aspartate Amino Transf (AST/SGOT) 32 U/L (15-37) Alanine Aminotransferase (ALT/SGPT) 25 U/L (12-78) Alkaline Phosphatase 170 U/L (46-116) H Total Protein 5.8 G/DL (6.4-8.2) L Albumin 1.1 G/DL (3.4-5.0) L Globulin 4.7 g/dL Albumin/Globulin Ratio 0.2 (1.0-2.7) L Risk Assessment & Plan Assessment: asa 4 Plan: MAC w/sedation Status Change Before Surgery: No Pre-Antibiotics Drug: none Patricia Valles M.D. Mar 25, 2018 12:44
[2018-03-25] MEDS ORDERED: fentaNYL 100 mcg/2 mL IV ONE (12:56)
[2018-03-25] MEDS ORDERED: Propofol 200mg/20ml IV ONE (12:56)
[2018-03-25] MEDS ORDERED: LR 1000ml ONE (13:00)
--- NOTE | 2018-03-25 13:06 | Pre-Procedure Note/Attestation ---
Pre-Procedure Note/Attestation Complete Prior to Procedure Procedure Narrative: Transesophageal echocardiography Indications for Procedure Pre-Operative Diagnosis: Bacteremia with gram positive cocci Suspect endocarditis Attestation I attest that I discussed the nature of the procedure; its benefits; risks and complications; and alternatives (and the risks and benefits of such alternatives ), prior to the procedure, with the patient (or the patient's legal retail wireless sales representative). I attest that, if there was a reasonable possibility of needing a blood transfusion, the patient (or the patient's legal retail wireless sales representative) was given the [facility] standardized written summary, pursuant to the Bennie Viktor Blood Safety Act ([place] Health and Safety Code # 1645, as amended). I attest that I re-evaluated the patient just prior to the surgery and that there has been no change in the patient's H&P, except as documented below: Alvarado Lee MD Mar 25, 2018 13:06
--- NOTE | 2018-03-25 13:40 | Brief Operative Note ---
Immediate Post Operative Note Operative Note Chief Complaint: Dyspnea Pre-op Diagnosis: Bacteremia with gram positive cocci Suspect endocarditis Procedure: DELMA Post-op Diagnosis: 1. Tricuspid valve endocarditis 2. Severe TR with severe pulmonary HTN. 3. Normal LV systolic function. Surgeon: Alvarado lee MD Photographic Laboratory Technician: None Anesthesia: MAC Specimen: none Complications: none Condition: stable Fluids: none Estimated Blood Loss: none Drains: none Packing: None Implant(s) used?: No Alvarado Lee MD Mar 25, 2018 13:40
--- NOTE | 2018-03-25 14:05 | Immediate Post-Op Evaluation ---
Immediate Post-Op Evalulation Immediate Post-Op Evalulation Procedure: DELMA Date of Evaluation: Mar 25, 2018 Time of Evaluation: 13:45 IV Fluids: 500ml Blood Products: 0 Estimated Blood Loss: 0 Urinary Output: 0 Blood Pressure Diastolic: 125 Pulse Rate: 77 Respiratory Rate: 28 O2 Sat by Pulse Oximetry: 100 Temperature (Fahrenheit): 99.1 Pain Score (1-10): 0 Nausea: No Vomiting: No Complications none Patient Status: awake, patent, none Hydration Status: adequate Drug: none Patricia Valles M.D. Mar 25, 2018 14:05
--- NOTE | 2018-03-25 14:09 | 48 Hour Post Anesthesia Eval ---
Post Anesthesia Evaluation Procedure: DELMA Date of Evaluation: Mar 25, 2018 Time of Evaluation: 14:05 Blood Pressure Systolic: 128 0: 84 Pulse Rate: 97 Respiratory Rate: 29 Temperature (Fahrenheit): 99.1 O2 Sat by Pulse Oximetry: 100 Airway: patent Nausea: No Vomiting: No Pain Intensity: 0 Hydration Status: adequate Mental Status/LOC: patient returned to baseline Post-Anesthesia Complications: none Follow-up care needed: N/A Patricia Valles M.D. Mar 25, 2018 14:09
[2018-03-25] MEDS ORDERED: Vancomycin 1gm/D5W 275ml IVPB ONE ×2 (18:30)
[2018-03-25] MEDS: Dyna-Hex 2% Top Sol 2oz TOPIC SCH (20:00)
--- NOTE | 2018-03-25 20:29 | Cardiology Report ---
APPROVED REPORT EXAM: Two-dimensional and M-mode echocardiogram with Doppler and color Doppler. INDICATION Endocarditis M-Mode DIMENSIONS IVSd0.7 (0.7-1.1cm)Left Atrium (MM)3.5 (1.6-4.0cm) LVDd4.7 (3.5-5.6cm)Aortic Root3.2 (2.0-3.7cm) PWd0.9 (0.7-1.1cm)Aortic Cusp Exc.2.0 (1.5-2.0cm) LVDs3.0 (2.5-4.0cm) PWs0.8 cm Technically difficult study due to poor acoustical windows. Patients position and on respirator. Normal left ventricular chamber size, systolic function and wall motion. Left ventricular ejection fraction estimated to be 50-55 %. No evidence of left ventricular hypertrophy. No evidence of pericardial or pleural effusion. All other cardiac chamber sizes are within normal limits. Focal aortic valve sclerosis with adequate cusp excursion. Thickened mitral valve leaflets with normal excursion. Mild mitral annulus and aortic root calcification. Pulmonic valve not well visualized. Normal tricuspid valve structure. IVC is normal in size and collapsible with respiration. An echodense amorphous mass is seen on the tricuspid valve, suspicious of vegetation, consider DELMA if clinically indicated. A color flow and spectral Doppler study was performed and revealed: No aortic regurgitation. No mitral regurgitation. Mitral inflow velocities indicates possible pseudo normalization pattern implying significant left ventricular diastolic dysfunction. Mild tricuspid regurgitation. Tricuspid systolic velocities suggests peak right ventricular systolic pressure of 36 mmHg Consistent with mild pulmonary hypertension.
[2018-03-26] VITALS: BP 125/73
[2018-03-26] MEDS: Morphine Sulfate 4mg/ml Inj (IV USE ONLY) IVP PRN ×7 (02:14→21:32)
[2018-03-26 04:00] VITALS: BP 126/77
[2018-03-26] MEDS: ceFAZolin sod 2 GM in D5W 110 ML IVPB SCH ×3 (05:42→22:19)
--- NOTE | 2018-03-26 07:41 | General Progress Note ---
Assessment/Plan Assessment/Plan 1. CT consistent with septic emboli. 2. Heroin abuse. 3. Elevated liver enzymes 4. Significantly reduced albumin. 5. Severe protein-calorie malnutrition 6. Lower extremity edema. negative venous 7. Hypoxemia. 8. Tachycardia. 9. Leukocytosis. 10. Sepsis. 11.endocarditis 12. coagulopathy PLAN needs emergent transfer for cardiac surgery monitor wbc continue antibiotics d/w cards guarded Subjective Allergies: Coded Allergies: No Known Allergies (Unverified , 12/11/13) Subjective bcx positive CT noted cards appreciated +endocarditis Objective Last 24 Hour Vital Signs Date Time Temp Pulse Resp B/P (MAP) Pulse Ox O2 Delivery O2 Flow Rate FiO2 03/26/18 04:00 98.1 104 20 126/77 (93) 99 98.1 03/26/18 04:00 110 03/26/18 00:00 99.0 102 24 125/73 (90) 95 99.0 03/26/18 00:00 103 03/25/18 20:00 99.1 102 24 152/89 (110) 98 99.1 03/25/18 20:00 110 03/25/18 19:08 Venturi Mask 15.0 55 03/25/18 19:08 96 Venturi Mask 15.0 55 03/25/18 18:47 98.3 03/25/18 16:00 105 03/25/18 16:00 98.3 109 26 145/85 (105) 98 98.3 03/25/18 15:57 98.3 03/25/18 15:27 98.7 03/25/18 14:45 100 28 122/82 100 Venturi Mask 55 03/25/18 14:30 98.7 102 25 126/84 100 Venturi Mask 55 98.7 03/25/18 14:15 98 27 133/76 100 Venturi Mask 55 03/25/18 14:09 210.4 97 29 100 03/25/18 14:05 210.4 77 28 100 03/25/18 14:00 102 29 128/84 100 Venturi Mask 55 03/25/18 13:50 100 30 127/79 100 Venturi Mask 55 03/25/18 13:44 99 100 28 125/77 100 Venturi Mask 55 99.0 03/25/18 12:00 Venturi Mask 15.0 03/25/18 12:00 98.5 24 138/85 (102) 99 98.5 03/25/18 12:00 101 03/25/18 11:10 98.2 03/25/18 09:00 Venturi Mask 15.0 03/25/18 08:05 98.4 03/25/18 08:00 98.6 103 24 133/78 (96) 99 98.6 03/25/18 08:00 Venturi Mask 15.0 03/25/18 08:00 102 Intake and Output 03/25/18 03/26/18 19:00 07:00 Intake Total 3150 ml 1351.800 ml Output Total 780 ml Balance 2370 ml 1351.800 ml Intake Oral 800 ml IV Total 2350 ml 1351.800 ml Output Urine Total 780 ml Laboratory Tests 03/25/18 08:50: Arterial Blood pH 7.496H, Arterial Blood Partial Pressure CO2 29.4L, Arterial Blood Partial Pressure O2 81.9, Arterial Blood HCO3 22.2, Arterial Blood Oxygen Saturation 95.0, Arterial Blood Base Excess -0.6, Elieser Test Positive 03/25/18 16:45: Random Vancomycin Level 17.2 03/26/18 03:00: Random Vancomycin Level 28.1 Height (Feet): 5 Height (Inches): 11.00 Weight (Pounds): 208 Objective WDWN mild sob reduced breath sounds bilaterally without rhonchi or wheeze S1S2RR tachy without MRG NABS nontender no HSM no CC noted edema nonfocal Paddy Boss MD Mar 26, 2018 07:41
[2018-03-26 08:00] VITALS: BP 141/81
[2018-03-26 08:29] LABS: HEMATOCRIT 26.6 % (42.0-52.0); HEMOGLOBIN 8.8 G/DL (14.2-18.0); MEAN CORPUSCULAR VOLUME 81 FL (80-99); PLATELET COUNT 152 K/UL (150-450); RED BLOOD COUNT 3.28 M/UL (4.70-6.10); RED CELL DISTRIBUTION WIDTH 12.9 % (11.6-14.8); WHITE BLOOD COUNT 19.4 K/UL (4.8-10.8)
[2018-03-26 08:50] LABS: ANION GAP 8 mmol/L (5-15); BLOOD UREA NITROGEN 45 mg/dL (7-18); CALCIUM 7.2 MG/DL (8.5-10.1); CARBON DIOXIDE 23 MMOL/L (21-32); CHLORIDE 96 MMOL/L (98-107); CREATININE 2.8 MG/DL (0.55-1.30); POTASSIUM 3.4 MMOL/L (3.5-5.1); SODIUM 127 MMOL/L (136-145)
[2018-03-26] MEDS: Heparin 5000 units/ml inj SUBQ SCH ×2 (08:55→21:40)
[2018-03-26 12:00] VITALS: BP 148/78
[2018-03-26] MEDS: NS w/KCl 20mEq 1,000 ML IV SCH (14:54)
[2018-03-26 16:00] VITALS: BP 146/87
--- NOTE | 2018-03-26 19:42 | Cardiology Progress Note ---
Assessment/Plan Assessment/Plan 1. 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 Requires TV repair in view of embolization and presence of immunologic phenomena , discussed with Dr. Boss and Candace to facilitate his transfer to a facility that provides CT surgery. Meanwhile continue IV ABx per ID recommendations. Normal LVEF. 2. Sinus tachycardia due to sepsis. Subjective Subjective Sinus tachycardia at 101. Objective Last 24 Hour Vital Signs Date Time Temp Pulse Resp B/P (MAP) Pulse Ox O2 Delivery O2 Flow Rate FiO2 03/26/18 16:00 Venturi Mask 15.0 03/26/18 16:00 98.2 101 22 146/87 (106) 99 98.2 03/26/18 15:27 99 03/26/18 12:00 98.1 100 22 148/78 (101) 100 98.1 03/26/18 12:00 Venturi Mask 15.0 03/26/18 11:44 93 03/26/18 08:00 98.6 101 26 141/81 (101) 100 98.6 03/26/18 07:47 103 03/26/18 07:46 107 03/26/18 04:00 98.1 104 20 126/77 (93) 99 98.1 03/26/18 04:00 110 03/26/18 00:00 99.0 102 24 125/73 (90) 95 99.0 03/26/18 00:00 103 03/25/18 20:00 99.1 102 24 152/89 (110) 98 99.1 03/25/18 20:00 110 Intake and Output 03/25/18 03/26/18 19:00 07:00 Intake Total 3150 ml 1351.800 ml Output Total 780 ml Balance 2370 ml 1351.800 ml Intake Oral 800 ml IV Total 2350 ml 1351.800 ml Output Urine Total 780 ml 2D Echo: LVEF 55%, severe TR with TV vegetation, RVSP 36 mmHg Laboratory Tests Test 03/26/18 03:00 03/26/18 08:00 Random Vancomycin Level 28.1 ug/mL White Blood Count 19.4 K/UL (4.8-10.8) H Red Blood Count 3.28 M/UL (4.70-6.10) L Hemoglobin 8.8 G/DL (14.2-18.0) L Hematocrit 26.6 % (42.0-52.0) L Mean Corpuscular Volume 81 FL (80-99) Mean Corpuscular Hemoglobin 26.7 PG (27.0-31.0) L Mean Corpuscular Hemoglobin Concent 32.9 G/DL (32.0-36.0) Red Cell Distribution Width 12.9 % (11.6-14.8) Platelet Count 152 K/UL (150-450) Mean Platelet Volume 7.8 FL (6.5-10.1) Neutrophils (%) (Auto) % (45.0-75.0) Lymphocytes (%) (Auto) % (20.0-45.0) Monocytes (%) (Auto) % (1.0-10.0) Eosinophils (%) (Auto) % (0.0-3.0) Basophils (%) (Auto) % (0.0-2.0) Differential Total Cells Counted 100 Neutrophils % (Manual) 86 % (45-75) H Lymphocytes % (Manual) 12 % (20-45) L Monocytes % (Manual) 1 % (1-10) Eosinophils % (Manual) 1 % (0-3) Basophils % (Manual) 0 % (0-2) Band Neutrophils 0 % (0-8) Platelet Estimate Adequate Platelet Morphology Normal Hypochromasia 1+ Microcytosis 1+ Sodium Level 127 MMOL/L (136-145) L Potassium Level 3.4 MMOL/L (3.5-5.1) L Chloride Level 96 MMOL/L (98-107) L Carbon Dioxide Level 23 MMOL/L (21-32) Anion Gap 8 mmol/L (5-15) Blood Urea Nitrogen 45 mg/dL (7-18) H Creatinine 2.8 MG/DL (0.55-1.30) #H Estimat Glomerular Filtration Rate 25.8 mL/min (>60) Glucose Level 134 MG/DL (74-106) H Calcium Level 7.2 MG/DL (8.5-10.1) L Objective HEENT: Atraumatic and normocephalic. Anicteric. Conjunctival pallor is present. Pupils are equal, round, and reactive to light and accommodation. Extraocular muscles are intact. NECK: JVP is less than 5 cm. No carotid bruits. Carotid upstrokes 2+ bilaterally. CARDIOVASCULAR: Normal S1, S2. Regular rate and rhythm. Tachycardic. 2/6 HSM at Xyphoid area, no gallops or rubs. PMI is at fourth intercostal space in the midclavicular line. LUNGS: Bilateral crackles. ABDOMEN: Soft, nontender, and nondistended. No hepatosplenomegaly. Positive bowel sounds. EXTREMITIES: Bilateral lower extremity edema. There are some patches of nonblanching erythematous rash, now painful to palpation. Alvarado Lee MD Mar 26, 2018 19:42
[2018-03-26 20:00] VITALS: BP 146/91
[2018-03-26] MEDS: Dyna-Hex 2% Top Sol 2oz TOPIC SCH (20:41)
[2018-03-27] VITALS: BP 141/90
[2018-03-27] MEDS: LORazepam Inj 2mg/ml 1ml IV PRN (00:44)
[2018-03-27] MEDS: NS w/KCl 20mEq 1,000 ML IV SCH ×3 (01:48→21:23)
[2018-03-27] MEDS: Morphine Sulfate 4mg/ml Inj (IV USE ONLY) IVP PRN ×7 (02:05→23:28)
[2018-03-27 04:00] VITALS: BP 142/91
[2018-03-27] MEDS: ceFAZolin sod 2 GM in D5W 110 ML IVPB SCH ×3 (06:50→23:27)
--- NOTE | 2018-03-27 07:38 | Diagnostic Imaging Report ---
APPROVED REPORT CPT Code: 22983 Present Symptoms Comments: BILATERAL LEG SWELLING. BILATERAL: Imaging reveals a patent deep venous system bilaterally. There is no evidence of thrombus within the femoral, popliteal or tibial segments. The greater saphenous veins are also within normal limits. Doppler indicates normal spontaneous flow within these segments.
[2018-03-27 07:54] LABS: BASOPHILS % (AUTO) 0.5 % (0.0-2.0); EOSINOPHILS % (AUTO) 0.7 % (0.0-3.0); HEMATOCRIT 24.5 % (42.0-52.0); HEMOGLOBIN 8.1 G/DL (14.2-18.0); LYMPHOCYTES % (AUTO) 13.6 % (20.0-45.0); MEAN CORPUSCULAR VOLUME 81 FL (80-99); MONOCYTES % (AUTO) 4.8 % (1.0-10.0); NEUTROPHILS % (AUTO) 80.5 % (45.0-75.0); PLATELET COUNT 188 K/UL (150-450); RED BLOOD COUNT 3.02 M/UL (4.70-6.10); WHITE BLOOD COUNT 17.6 K/UL (4.8-10.8)
[2018-03-27 08:00] VITALS: BP 139/89
[2018-03-27] MEDS: Heparin 5000 units/ml inj SUBQ SCH ×2 (08:03→21:00)
[2018-03-27 08:12] LABS: ANION GAP 13 mmol/L (5-15); BLOOD UREA NITROGEN 57 mg/dL (7-18); CALCIUM 7.4 MG/DL (8.5-10.1); CARBON DIOXIDE 20 MMOL/L (21-32); CHLORIDE 97 MMOL/L (98-107); CREATININE 3.3 MG/DL (0.55-1.30); POTASSIUM 4.3 MMOL/L (3.5-5.1); SODIUM 129 MMOL/L (136-145)
--- NOTE | 2018-03-27 10:58 | Infectious Diseases Prog Note ---
Assessment/Plan Assessment/Plan antibiotics : vancomycin iv, ancef A 1. staph aureus sepsis 2. staph aureus UTI 3. 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 leucocytosis improving 5. renal failure 6. substance abuse P 1. continue ancef 2. d.c vancomycin 3. will follow up cultures 4. [facility] transfer pending Subjective Constitutional: Denies: fever, chills Respiratory: Denies: shortness of breath, dry cough Gastrointestinal/Abdominal: Denies: nausea, vomiting, diarrhea Musculoskeletal: Reports: pain - in abdomen Allergies: Coded Allergies: No Known Allergies (Unverified , 12/11/13) Objective Vital Signs Last 24 Hour Vital Signs Date Time Temp Pulse Resp B/P (MAP) Pulse Ox O2 Delivery O2 Flow Rate FiO2 03/27/18 09:14 102 03/27/18 08:27 97.9 03/27/18 08:00 97.9 98 26 139/89 (106) 100 97.9 98 03/27/18 07:57 97.5 03/27/18 04:00 99 03/27/18 04:00 97.5 98 28 142/91 (108) 100 97.5 03/27/18 04:00 Venturi Mask 15.0 03/27/18 00:00 94 03/27/18 00:00 98.0 103 22 141/90 (107) 100 98.0 03/27/18 00:00 Venturi Mask 15.0 03/26/18 20:00 Venturi Mask 15.0 03/26/18 20:00 102 03/26/18 20:00 98.4 106 28 146/91 (109) 100 98.4 03/26/18 16:00 Venturi Mask 15.0 03/26/18 16:00 98.2 101 22 146/87 (106) 99 98.2 03/26/18 15:27 99 03/26/18 12:00 98.1 100 22 148/78 (101) 100 98.1 03/26/18 12:00 Venturi Mask 15.0 03/26/18 11:44 93 Height (Feet): 5 Height (Inches): 11.00 Weight (Pounds): 214 Respiratory/Chest: lungs clear Cardiovascular: normal rate, regular rhythm, no gallop/murmur Abdomen: soft, non tender Extremities: no edema Skin: other - linear siegel on arms and legs, right IJ catheter Laboratory Tests Test 03/27/18 07:30 White Blood Count 17.6 K/UL (4.8-10.8) H Red Blood Count 3.02 M/UL (4.70-6.10) L Hemoglobin 8.1 G/DL (14.2-18.0) L Hematocrit 24.5 % (42.0-52.0) L Mean Corpuscular Volume 81 FL (80-99) Mean Corpuscular Hemoglobin 27.0 PG (27.0-31.0) Mean Corpuscular Hemoglobin Concent 33.2 G/DL (32.0-36.0) Red Cell Distribution Width 13.0 % (11.6-14.8) Platelet Count 188 K/UL (150-450) Mean Platelet Volume 7.3 FL (6.5-10.1) Neutrophils (%) (Auto) 80.5 % (45.0-75.0) H Lymphocytes (%) (Auto) 13.6 % (20.0-45.0) L Monocytes (%) (Auto) 4.8 % (1.0-10.0) Eosinophils (%) (Auto) 0.7 % (0.0-3.0) Basophils (%) (Auto) 0.5 % (0.0-2.0) Sodium Level 129 MMOL/L (136-145) L Potassium Level 4.3 MMOL/L (3.5-5.1) Chloride Level 97 MMOL/L (98-107) L Carbon Dioxide Level 20 MMOL/L (21-32) L Anion Gap 13 mmol/L (5-15) Blood Urea Nitrogen 57 mg/dL (7-18) H Creatinine 3.3 MG/DL (0.55-1.30) H Estimat Glomerular Filtration Rate 21.3 mL/min (>60) Glucose Level 179 MG/DL (74-106) H Calcium Level 7.4 MG/DL (8.5-10.1) L Current Medications Medications (Trade) Dose Ordered Sig/Zach Route PRN Reason Start Time Stop Time Status Last Admin Dose Admin Acetaminophen (Tylenol) 650 mg Q4H PRN ORAL Mild Pain/Temp > 100.5 03/24/18 17:00 04/21/18 16:59 03/24/18 20:10 Al Hydroxide/Mg Hydroxide (Mylanta) 30 ml Q4H PRN ORAL Nausea & Vomiting 03/24/18 17:00 04/22/18 16:59 Cefazolin Sodium 2 gm/Dextrose 110 ml @ 220 mls/hr Q8HR IVPB 03/24/18 22:00 03/31/18 14:59 03/27/18 06:50 Chlorhexidine Gluconate (Ayala-Hex 2%) 1 applic DAILY@2000 TOPIC 03/24/18 20:00 04/22/18 19:59 03/26/18 20:41 Heparin Sodium (Porcine) (Heparin 5000 units/ml) 5,000 units EVERY 12 HOURS SUBQ 03/24/18 21:00 04/21/18 20:59 03/27/18 08:03 Lorazepam (Ativan 2mg/ml 1ml) 1 mg Q3H PRN IV For Anxiety 03/24/18 16:30 03/30/18 16:29 03/27/18 00:44 Magnesium Hydroxide (Mom) 30 ml DAILYPRN PRN ORAL Constipation 03/24/18 17:00 04/21/18 16:59 Morphine Sulfate (Morphine Sulfate) 2 mg Q3H PRN IVP Moderate Pain (Pain Scale 4-6) 03/24/18 16:30 03/30/18 16:29 Morphine Sulfate (Morphine Sulfate) 4 mg Q3H PRN IVP Severe Pain (Pain Scale 7-10) 03/24/18 17:30 03/30/18 17:29 03/27/18 07:57 Ondansetron HCl (Zofran) 4 mg Q6H PRN IVP Nausea & Vomiting 03/24/18 16:30 04/22/18 16:29 Pantoprazole (Protonix) 40 mg DAILY ORAL 03/25/18 09:00 04/22/18 08:59 03/27/18 08:01 Sodium Chloride 1,000 ml @ 100 mls/hr Q10H IV 03/26/18 15:30 04/25/18 15:29 03/27/18 01:48 Vancomycin HCl (Vanco rx to dose) 1 ea DAILY PRN MISC Per rx protocol 03/25/18 09:00 04/21/18 18:29 Zolpidem Tartrate (Ambien) 5 mg HSPRN PRN ORAL Insomnia 03/24/18 21:00 03/29/18 20:59 LAURA ABEBE Mar 27, 2018 10:57
[2018-03-27 12:00] VITALS: BP 135/84
[2018-03-27 16:00] VITALS: BP 145/94
--- NOTE | 2018-03-27 17:16 | General Progress Note ---
Assessment/Plan Assessment/Plan 1. CT consistent with septic emboli. 2. Heroin abuse. 3. Elevated liver enzymes 4. Significantly reduced albumin. 5. Severe protein-calorie malnutrition 6. Lower extremity edema. negative venous 7. Hypoxemia. 8. Tachycardia. 9. Leukocytosis. 10. Sepsis. 11.endocarditis 12. coagulopathy PLAN needs emergent transfer for cardiac surgery IV antibiotics d/w cards guarded check cxr ? lasix case management involved Subjective Allergies: Coded Allergies: No Known Allergies (Unverified , 12/11/13) Subjective bcx positive CT noted cards appreciated +endocarditis Objective Last 24 Hour Vital Signs Date Time Temp Pulse Resp B/P (MAP) Pulse Ox O2 Delivery O2 Flow Rate FiO2 03/27/18 16:01 107 03/27/18 16:00 Venturi Mask 15.0 03/27/18 16:00 97.7 101 21 145/94 (111) 100 97.7 1 03/27/18 15:42 97.5 03/27/18 15:12 97.5 03/27/18 12:00 97.5 102 22 135/84 (101) 99 97.5 102 03/27/18 12:00 102 03/27/18 12:00 Venturi Mask 15.0 03/27/18 11:11 97.9 03/27/18 09:46 Venturi Mask 15.0 55 03/27/18 09:46 95 Venturi Mask 15.0 55 03/27/18 09:14 102 03/27/18 08:00 Venturi Mask 15.0 03/27/18 08:00 97.9 98 26 139/89 (106) 100 97.9 98 03/27/18 07:57 97.5 03/27/18 04:00 99 03/27/18 04:00 97.5 98 28 142/91 (108) 100 97.5 03/27/18 04:00 Venturi Mask 15.0 03/27/18 00:00 94 03/27/18 00:00 98.0 103 22 141/90 (107) 100 98.0 03/27/18 00:00 Venturi Mask 15.0 03/26/18 20:00 Venturi Mask 15.0 03/26/18 20:00 102 03/26/18 20:00 98.4 106 28 146/91 (109) 100 98.4 Intake and Output 03/26/18 03/27/18 19:00 07:00 Intake Total 1410 ml 3050 ml Output Total 600 ml Balance 810 ml 3050 ml Intake Oral 600 ml 1740 ml IV Total 810 ml 1310 ml Output Urine Total 600 ml Laboratory Tests 03/27/18 07:30: White Blood Count 17.6H, Red Blood Count 3.02L, Hemoglobin 8.1L, Hematocrit 24.5L, Mean Corpuscular Volume 81, Mean Corpuscular Hemoglobin 27.0, Mean Corpuscular Hemoglobin Concent 33.2, Red Cell Distribution Width 13.0, Platelet Count 188, Mean Platelet Volume 7.3, Neutrophils (%) (Auto) 80.5H, Lymphocytes ( %) (Auto) 13.6L, Monocytes (%) (Auto) 4.8, Eosinophils (%) (Auto) 0.7, Basophils (%) (Auto) 0.5, Sodium Level 129L, Potassium Level 4.3, Chloride Level 97L, Carbon Dioxide Level 20L, Anion Gap 13, Blood Urea Nitrogen 57H, Creatinine 3.3H, Estimat Glomerular Filtration Rate 21.3, Glucose Level 179H, Calcium Level 7.4L Height (Feet): 5 Height (Inches): 11.00 Weight (Pounds): 214 Objective WDWN mild sob reduced breath sounds bilaterally without rhonchi or wheeze S1S2RR tachy without MRG NABS nontender no HSM no CC noted edema nonfocal Paddy Boss MD Mar 27, 2018 17:16
[2018-03-27 20:00] VITALS: BP 150/99
[2018-03-27] MEDS: Dyna-Hex 2% Top Sol 2oz TOPIC SCH (20:12)
[2018-03-27] MEDS ORDERED: Milk of Magnesia 30ml Ud ORAL PRN (22:00)
[2018-03-28] VITALS: BP 140/88
[2018-03-28 04:00] VITALS: BP 150/96
[2018-03-28] MEDS: Morphine Sulfate 4mg/ml Inj (IV USE ONLY) IVP PRN (04:03)
[2018-03-28 05:14] LABS: HEMATOCRIT 26.4 % (42.0-52.0); HEMOGLOBIN 8.7 G/DL (14.2-18.0); MEAN CORPUSCULAR VOLUME 81 FL (80-99); PLATELET COUNT 252 K/UL (150-450); RED BLOOD COUNT 3.25 M/UL (4.70-6.10); RED CELL DISTRIBUTION WIDTH 13.1 % (11.6-14.8); WHITE BLOOD COUNT 19.8 K/UL (4.8-10.8)
[2018-03-28 05:51] LABS: ALANINE AMINOTRANSFERASE 10 U/L (12-78); ALBUMIN/GLOBULIN RATIO 0.2 (1.0-2.7); ALKALINE PHOSPHATASE 428 U/L (46-116); ANION GAP 10 mmol/L (5-15); ASPARTATE AMINO TRANSFERASE 40 U/L (15-37); BILIRUBIN,TOTAL 1.9 MG/DL (0.2-1.0); BLOOD UREA NITROGEN 65 mg/dL (7-18); CALCIUM 7.5 MG/DL (8.5-10.1); CARBON DIOXIDE 20 MMOL/L (21-32); CHLORIDE 99 MMOL/L (98-107); CREATININE 3.7 MG/DL (0.55-1.30); POTASSIUM 4.7 MMOL/L (3.5-5.1); SODIUM 129 MMOL/L (136-145)
[2018-03-28 05:56] LABS: BILIRUBIN,DIRECT 1.7 MG/DL (0.0-0.3)
[2018-03-28] MEDS: ceFAZolin sod 2 GM in D5W 110 ML IVPB SCH (05:58)
[2018-03-28 08:00] VITALS: BP 138/83
[2018-03-28] MEDS: Morphine Sulfate 2mg/ml Inj(IV/IM USE ONLY) IVP PRN ×4 (09:23→20:26)
[2018-03-28] MEDS: Heparin 5000 units/ml inj SUBQ SCH ×2 (09:23→20:28)
[2018-03-28] MEDS: NS w/KCl 20mEq 1,000 ML IV SCH (09:34)
--- NOTE | 2018-03-28 11:51 | Diagnostic Imaging Report ---
Indication: Shortness of breath Technique: One view of the chest Comparison: 03/22/2018 Findings: Extensive nodular airspace opacities are again demonstrated. In addition, there is more diffuse generalized airspace opacity now present. There is evidence of new or increased pleural fluid bilaterally. Right jugular central venous catheter remains. Heart size is upper limits of normal Impression: Worsening bilateral diffuse airspace disease, over 6 days, as described
[2018-03-28 12:00] VITALS: BP 147/87
--- NOTE | 2018-03-28 13:32 | Infectious Diseases Prog Note ---
Assessment/Plan Assessment/Plan A 1. staph aureus sepsis 2. staph aureus UTI 3. 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 leucocytosis improving 5. renal failure 6. substance abuse P 1. continue Ancef decrease dose for renal failure 2. transfer pending Subjective ROS Limited/Unobtainable: No Respiratory: Reports: productive cough, other - bloody cough Cardiovascular: Reports: chest pain Gastrointestinal/Abdominal: Reports: no symptoms Genitourinary: Reports: no symptoms Skin: Reports: rash Allergies: Coded Allergies: No Known Allergies (Unverified , 12/11/13) Objective Vital Signs Last 24 Hour Vital Signs Date Time Temp Pulse Resp B/P (MAP) Pulse Ox O2 Delivery O2 Flow Rate FiO2 03/28/18 12:17 98.0 03/28/18 12:00 98.2 112 20 147/87 (107) 95 98.2 112 03/28/18 09:53 98.0 03/28/18 09:23 98.0 03/28/18 08:00 Venturi Mask 15.0 03/28/18 08:00 98.0 113 23 138/83 (101) 95 98.0 111 03/28/18 08:00 107 03/28/18 04:00 98.0 113 32 150/96 (114) 95 98.0 113 03/28/18 04:00 114 03/28/18 03:50 Venturi Mask 15.0 03/28/18 00:00 106 03/28/18 00:00 Venturi Mask 15.0 03/28/18 00:00 97.9 107 24 140/88 (105) 99 97.9 110 03/27/18 20:30 Venturi Mask 15.0 55 03/27/18 20:30 96 Venturi Mask 15.0 55 03/27/18 20:00 Venturi Mask 15.0 03/27/18 20:00 98.2 110 32 150/99 (116) 100 98.2 110 03/27/18 20:00 112 03/27/18 16:01 107 03/27/18 16:00 Venturi Mask 15.0 03/27/18 16:00 97.7 101 21 145/94 (111) 100 97.7 1 03/27/18 15:42 97.5 03/27/18 15:12 97.5 Height (Feet): 5 Height (Inches): 11.00 Weight (Pounds): 210 HEENT: mucous membranes moist Respiratory/Chest: lungs clear Cardiovascular: tachycardia, other - RIJ central line Abdomen: soft, non tender Extremities: no edema Skin: rash, other - increased on arms, purpuris Neurologic/Psychiatric: alert, oriented x 3, responsive Laboratory Tests Test 03/28/18 04:00 White Blood Count 19.8 K/UL (4.8-10.8) H Red Blood Count 3.25 M/UL (4.70-6.10) L Hemoglobin 8.7 G/DL (14.2-18.0) L Hematocrit 26.4 % (42.0-52.0) L Mean Corpuscular Volume 81 FL (80-99) Mean Corpuscular Hemoglobin 26.7 PG (27.0-31.0) L Mean Corpuscular Hemoglobin Concent 32.9 G/DL (32.0-36.0) Red Cell Distribution Width 13.1 % (11.6-14.8) Platelet Count 252 K/UL (150-450) Mean Platelet Volume 7.2 FL (6.5-10.1) Neutrophils (%) (Auto) % (45.0-75.0) Lymphocytes (%) (Auto) % (20.0-45.0) Monocytes (%) (Auto) % (1.0-10.0) Eosinophils (%) (Auto) % (0.0-3.0) Basophils (%) (Auto) % (0.0-2.0) Differential Total Cells Counted 100 Neutrophils % (Manual) 77 % (45-75) H Lymphocytes % (Manual) 13 % (20-45) L Monocytes % (Manual) 5 % (1-10) Eosinophils % (Manual) 0 % (0-3) Basophils % (Manual) 0 % (0-2) Band Neutrophils 5 % (0-8) Platelet Estimate Adequate Platelet Morphology Normal Red Blood Cell Morphology Hypochromasia 1+ Sodium Level 129 MMOL/L (136-145) L Potassium Level 4.7 MMOL/L (3.5-5.1) Chloride Level 99 MMOL/L (98-107) Carbon Dioxide Level 20 MMOL/L (21-32) L Anion Gap 10 mmol/L (5-15) Blood Urea Nitrogen 65 mg/dL (7-18) H Creatinine 3.7 MG/DL (0.55-1.30) H Estimat Glomerular Filtration Rate 18.7 mL/min (>60) Glucose Level 122 MG/DL (74-106) H Calcium Level 7.5 MG/DL (8.5-10.1) L Total Bilirubin 1.9 MG/DL (0.2-1.0) H Direct Bilirubin 1.7 MG/DL (0.0-0.3) H Aspartate Amino Transf (AST/SGOT) 40 U/L (15-37) H Alanine Aminotransferase (ALT/SGPT) 10 U/L (12-78) L Alkaline Phosphatase 428 U/L (46-116) H Pro-B-Type Natriuretic Peptide 38856 pg/mL (0-125) H Total Protein 6.6 G/DL (6.4-8.2) Albumin 1.0 G/DL (3.4-5.0) L Globulin 5.6 g/dL Albumin/Globulin Ratio 0.2 (1.0-2.7) L Current Medications Medications (Trade) Dose Ordered Sig/Zach Route PRN Reason Start Time Stop Time Status Last Admin Dose Admin Acetaminophen (Tylenol) 650 mg Q4H PRN ORAL Mild Pain/Temp > 100.5 03/24/18 17:00 04/21/18 16:59 03/24/18 20:10 Al Hydroxide/Mg Hydroxide (Mylanta) 30 ml Q4H PRN ORAL Nausea & Vomiting 03/24/18 17:00 04/22/18 16:59 Cefazolin Sodium 2 gm/Dextrose 110 ml @ 220 mls/hr Q8HR IVPB 03/24/18 22:00 03/31/18 14:59 03/28/18 05:58 Chlorhexidine Gluconate (Ayala-Hex 2%) 1 applic DAILY@2000 TOPIC 03/24/18 20:00 04/22/18 19:59 03/27/18 20:12 Heparin Sodium (Porcine) (Heparin 5000 units/ml) 5,000 units EVERY 12 HOURS SUBQ 03/24/18 21:00 04/21/18 20:59 03/28/18 09:23 Lorazepam (Ativan 2mg/ml 1ml) 1 mg Q3H PRN IV For Anxiety 03/24/18 16:30 03/30/18 16:29 03/27/18 00:44 Magnesium Hydroxide (Mom) 30 ml DAILYPRN PRN ORAL Constipation 03/27/18 22:00 04/26/18 21:59 03/27/18 23:27 Morphine Sulfate (Morphine Sulfate) 2 mg Q3H PRN IVP Moderate Pain (Pain Scale 4-6) 03/24/18 16:30 03/30/18 16:29 03/28/18 12:17 Morphine Sulfate (Morphine Sulfate) 4 mg Q3H PRN IVP Severe Pain (Pain Scale 7-10) 03/24/18 17:30 03/30/18 17:29 03/28/18 04:03 Ondansetron HCl (Zofran) 4 mg Q6H PRN IVP Nausea & Vomiting 03/24/18 16:30 04/22/18 16:29 Pantoprazole (Protonix) 40 mg DAILY ORAL 03/25/18 09:00 04/22/18 08:59 03/28/18 09:23 Sodium Chloride 1,000 ml @ 100 mls/hr Q10H IV 03/26/18 15:30 04/25/18 15:29 03/28/18 09:34 Zolpidem Tartrate (Ambien) 5 mg HSPRN PRN ORAL Insomnia 03/24/18 21:00 03/29/18 20:59 Rakesh Michaud MD Mar 28, 2018 13:32
[2018-03-28 16:00] VITALS: BP 134/84
[2018-03-28 20:00] VITALS: BP 140/85
[2018-03-28] MEDS: Dyna-Hex 2% Top Sol 2oz TOPIC SCH (20:25)
[2018-03-28] MEDS: ceFAZolin 1gm/50ml Premix 50 ML IV SCH (20:26)
[2018-03-28] MEDS ORDERED: Bisacodyl EC 5mg tab ORAL PRN (21:00)
--- NOTE | 2018-03-28 21:33 | Pulmonology Progress Note ---
Assessment/Plan Assessment/Plan Assessment/Plan 1. CT consistent with septic emboli. 2. Heroin abuse. 3. Elevated liver enzymes 4. Significantly reduced albumin. 5. Severe protein-calorie malnutrition 6. Lower extremity edema. negative venous 7. Hypoxemia. 8. Tachycardia. 9. Leukocytosis. 10. Sepsis. 11.endocarditis 12. coagulopathy PLAN needs emergent transfer for cardiac surgery monitor wbc continue antibiotics d/w cards guarded Subjective Allergies: Coded Allergies: No Known Allergies (Unverified , 12/11/13) Subjective bcx positive CT noted cards appreciated +endocarditis Objective Last 24 Hour Vital Signs Date Time Temp Pulse Resp B/P (MAP) Pulse Ox O2 Delivery O2 Flow Rate FiO2 03/26/18 04:00 98.1 104 20 126/77 (93) 99 98.1 03/26/18 04:00 110 03/26/18 00:00 99.0 102 24 125/73 (90) 95 99.0 03/26/18 00:00 103 03/25/18 20:00 99.1 102 24 152/89 (110) 98 99.1 03/25/18 20:00 110 03/25/18 19:08 Venturi Mask 15.0 55 03/25/18 19:08 96 Venturi Mask 15.0 55 03/25/18 18:47 98.3 03/25/18 16:00 105 03/25/18 16:00 98.3 109 26 145/85 (105) 98 98.3 03/25/18 15:57 98.3 03/25/18 15:27 98.7 03/25/18 14:45 100 28 122/82 100 Venturi Mask 55 03/25/18 14:30 98.7 102 25 126/84 100 Venturi Mask 55 98.7 03/25/18 14:15 98 27 133/76 100 Venturi Mask 55 03/25/18 14:09 210.4 97 29 100 03/25/18 14:05 210.4 77 28 100 03/25/18 14:00 102 29 128/84 100 Venturi Mask 55 03/25/18 13:50 100 30 127/79 100 Venturi Mask 55 03/25/18 13:44 99 100 28 125/77 100 Venturi Mask 55 99.0 03/25/18 12:00 Venturi Mask 15.0 03/25/18 12:00 98.5 24 138/85 (102) 99 98.5 03/25/18 12:00 101 03/25/18 11:10 98.2 03/25/18 09:00 Venturi Mask 15.0 03/25/18 08:05 98.4 03/25/18 08:00 98.6 103 24 133/78 (96) 99 98.6 03/25/18 08:00 Venturi Mask 15.0 03/25/18 08:00 102 Intake and Output 03/25/18 03/26/18 19:00 07:00 Intake Total 3150 ml 1351.800 ml Output Total 780 ml Balance 2370 ml 1351.800 ml Intake Oral 800 ml IV Total 2350 ml 1351.800 ml Output Urine Total 780 ml Laboratory Tests 03/25/18 08:50: Arterial Blood pH 7.496H, Arterial Blood Partial Pressure CO2 29.4L, Arterial Blood Partial Pressure O2 81.9, Arterial Blood HCO3 22.2, Arterial Blood Oxygen Saturation 95.0, Arterial Blood Base Excess -0.6, Elieser Test Positive 03/25/18 16:45: Random Vancomycin Level 17.2 03/26/18 03:00: Random Vancomycin Level 28.1 Height (Feet): 5 Height (Inches): 11.00 Weight (Pounds): 208 Objective WDWN mild sob reduced breath sounds bilaterally without rhonchi or wheeze [id number] tachy without MRG NABS nontender no HSM no CC noted edema nonfocal Subjective Allergies: Coded Allergies: No Known Allergies (Unverified , 12/11/13) Objective Last 24 Hour Vital Signs Date Time Temp Pulse Resp B/P (MAP) Pulse Ox O2 Delivery O2 Flow Rate FiO2 03/28/18 20:26 98.2 03/28/18 16:00 98.2 113 21 134/84 (101) 95 98.2 113 03/28/18 16:00 111 03/28/18 16:00 Venturi Mask 15.0 03/28/18 15:39 98.0 03/28/18 15:09 98.0 03/28/18 12:17 98.0 03/28/18 12:00 Venturi Mask 15.0 03/28/18 12:00 98.2 112 20 147/87 (107) 95 98.2 112 03/28/18 12:00 115 03/28/18 09:23 98.0 03/28/18 08:00 Venturi Mask 15.0 03/28/18 08:00 98.0 113 23 138/83 (101) 95 98.0 111 03/28/18 08:00 107 03/28/18 04:00 98.0 113 32 150/96 (114) 95 98.0 113 03/28/18 04:00 114 03/28/18 03:50 Venturi Mask 15.0 03/28/18 00:00 106 03/28/18 00:00 Venturi Mask 15.0 03/28/18 00:00 97.9 107 24 140/88 (105) 99 97.9 110 Intake and Output 03/27/18 03/28/18 19:00 07:00 Intake Total 1890 ml 1490 ml Output Total 550 ml 100 ml Balance 1340 ml 1390 ml Intake Oral 770 ml 480 ml IV Total 1120 ml 1010 ml Output Urine Total 550 ml 100 ml Laboratory Tests 03/28/18 04:00: White Blood Count 19.8H, Red Blood Count 3.25L, Hemoglobin 8.7L, Hematocrit 26.4L, Mean Corpuscular Volume 81, Mean Corpuscular Hemoglobin 26.7L, Mean Corpuscular Hemoglobin Concent 32.9, Red Cell Distribution Width 13.1, Platelet Count 252, Mean Platelet Volume 7.2, Neutrophils (%) (Auto) , Lymphocytes (%) ( Auto) , Monocytes (%) (Auto) , Eosinophils (%) (Auto) , Basophils (%) (Auto) , Differential Total Cells Counted 100, Neutrophils % (Manual) 77H, Lymphocytes % (Manual) 13L, Monocytes % (Manual) 5, Eosinophils % (Manual) 0, Basophils % ( Manual) 0, Band Neutrophils 5, Platelet Estimate Adequate, Platelet Morphology Normal, Red Blood Cell Morphology , Hypochromasia 1+, Sodium Level 129L, Potassium Level 4.7, Chloride Level 99, Carbon Dioxide Level 20L, Anion Gap 10, Blood Urea Nitrogen 65H, Creatinine 3.7H, Estimat Glomerular Filtration Rate 18.7, Glucose Level 122H, Calcium Level 7.5L, Total Bilirubin 1.9H, Direct Bilirubin 1.7H, Aspartate Amino Transf (AST/SGOT) 40H, Alanine Aminotransferase (ALT/SGPT) 10L, Alkaline Phosphatase 428H, Pro-B-Type Natriuretic Peptide 67928I , Total Protein 6.6, Albumin 1.0L, Globulin 5.6, Albumin/Globulin Ratio 0.2L Current Medications Medications (Trade) Dose Ordered Sig/Zach Route PRN Reason Start Time Stop Time Status Last Admin Dose Admin Acetaminophen (Tylenol) 650 mg Q4H PRN ORAL Mild Pain/Temp > 100.5 03/24/18 17:00 04/21/18 16:59 03/24/18 20:10 Al Hydroxide/Mg Hydroxide (Mylanta) 30 ml Q4H PRN ORAL Nausea & Vomiting 03/24/18 17:00 04/22/18 16:59 Bisacodyl (Dulcolax) 10 mg DAILYPRN PRN ORAL Constipation 03/28/18 21:00 04/27/18 20:59 Cefazolin Sodium 50 ml @ 100 mls/hr Q12HR IV 03/28/18 21:00 03/31/18 20:59 03/28/18 20:26 Chlorhexidine Gluconate (Ayala-Hex 2%) 1 applic DAILY@2000 TOPIC 03/24/18 20:00 04/22/18 19:59 03/28/18 20:25 Heparin Sodium (Porcine) (Heparin 5000 units/ml) 5,000 units EVERY 12 HOURS SUBQ 03/24/18 21:00 04/21/18 20:59 03/28/18 20:28 Lorazepam (Ativan 2mg/ml 1ml) 1 mg Q3H PRN IV For Anxiety 03/24/18 16:30 03/30/18 16:29 03/27/18 00:44 Morphine Sulfate (Morphine Sulfate) 2 mg Q3H PRN IVP Moderate Pain (Pain Scale 4-6) 03/24/18 16:30 03/30/18 16:29 03/28/18 20:26 Morphine Sulfate (Morphine Sulfate) 4 mg Q3H PRN IVP Severe Pain (Pain Scale 7-10) 03/24/18 17:30 03/30/18 17:29 03/28/18 04:03 Ondansetron HCl (Zofran) 4 mg Q6H PRN IVP Nausea & Vomiting 03/24/18 16:30 04/22/18 16:29 03/28/18 14:42 Pantoprazole (Protonix) 40 mg DAILY ORAL 03/25/18 09:00 04/22/18 08:59 03/28/18 09:23 Zolpidem Tartrate (Ambien) 5 mg HSPRN PRN ORAL Insomnia 03/24/18 21:00 03/29/18 20:59 Omkar Cedeno MD Mar 28, 2018 21:33
[2018-03-28] MEDS: LORazepam Inj 2mg/ml 1ml IV PRN (22:23)
--- NOTE | 2018-03-28 23:07 | Cardiology Progress Note ---
Assessment/Plan Assessment/Plan 1. 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 Requires TV repair in view of embolization and presence of immunologic phenomena , Awaiting transfer to a facility that provides CT surgery. Meanwhile continue IV ABx per ID recommendations. Normal LVEF. 2. Sinus tachycardia due to sepsis/SIRS. 3. Hypoxemic respiratory failure. 4. Systemic inflammatory response disease/septic embolization 5. Proteinuria with hypoalbuminemia. Objective Last 24 Hour Vital Signs Date Time Temp Pulse Resp B/P (MAP) Pulse Ox O2 Delivery O2 Flow Rate FiO2 03/28/18 20:31 97 Nasal Cannula 4.0 36 03/28/18 20:31 Nasal Cannula 4.0 36 03/28/18 20:26 98.2 03/28/18 20:00 98.2 113 21 140/85 (103) 99 98.2 03/28/18 16:00 98.2 113 21 134/84 (101) 95 98.2 113 03/28/18 16:00 111 03/28/18 16:00 Venturi Mask 15.0 03/28/18 15:39 98.0 03/28/18 15:09 98.0 03/28/18 12:17 98.0 03/28/18 12:00 Venturi Mask 15.0 03/28/18 12:00 98.2 112 20 147/87 (107) 95 98.2 112 03/28/18 12:00 115 03/28/18 09:23 98.0 03/28/18 08:00 Venturi Mask 15.0 03/28/18 08:00 98.0 113 23 138/83 (101) 95 98.0 111 03/28/18 08:00 107 03/28/18 04:00 98.0 113 32 150/96 (114) 95 98.0 113 03/28/18 04:00 114 03/28/18 03:50 Venturi Mask 15.0 03/28/18 00:00 106 03/28/18 00:00 Venturi Mask 15.0 03/28/18 00:00 97.9 107 24 140/88 (105) 99 97.9 110 Intake and Output 03/27/18 03/28/18 19:00 07:00 Intake Total 1890 ml 1490 ml Output Total 550 ml 100 ml Balance 1340 ml 1390 ml Intake Oral 770 ml 480 ml IV Total 1120 ml 1010 ml Output Urine Total 550 ml 100 ml Laboratory Tests Test 03/28/18 04:00 White Blood Count 19.8 K/UL (4.8-10.8) H Red Blood Count 3.25 M/UL (4.70-6.10) L Hemoglobin 8.7 G/DL (14.2-18.0) L Hematocrit 26.4 % (42.0-52.0) L Mean Corpuscular Volume 81 FL (80-99) Mean Corpuscular Hemoglobin 26.7 PG (27.0-31.0) L Mean Corpuscular Hemoglobin Concent 32.9 G/DL (32.0-36.0) Red Cell Distribution Width 13.1 % (11.6-14.8) Platelet Count 252 K/UL (150-450) Mean Platelet Volume 7.2 FL (6.5-10.1) Neutrophils (%) (Auto) % (45.0-75.0) Lymphocytes (%) (Auto) % (20.0-45.0) Monocytes (%) (Auto) % (1.0-10.0) Eosinophils (%) (Auto) % (0.0-3.0) Basophils (%) (Auto) % (0.0-2.0) Differential Total Cells Counted 100 Neutrophils % (Manual) 77 % (45-75) H Lymphocytes % (Manual) 13 % (20-45) L Monocytes % (Manual) 5 % (1-10) Eosinophils % (Manual) 0 % (0-3) Basophils % (Manual) 0 % (0-2) Band Neutrophils 5 % (0-8) Platelet Estimate Adequate Platelet Morphology Normal Red Blood Cell Morphology Hypochromasia 1+ Sodium Level 129 MMOL/L (136-145) L Potassium Level 4.7 MMOL/L (3.5-5.1) Chloride Level 99 MMOL/L (98-107) Carbon Dioxide Level 20 MMOL/L (21-32) L Anion Gap 10 mmol/L (5-15) Blood Urea Nitrogen 65 mg/dL (7-18) H Creatinine 3.7 MG/DL (0.55-1.30) H Estimat Glomerular Filtration Rate 18.7 mL/min (>60) Glucose Level 122 MG/DL (74-106) H Calcium Level 7.5 MG/DL (8.5-10.1) L Total Bilirubin 1.9 MG/DL (0.2-1.0) H Direct Bilirubin 1.7 MG/DL (0.0-0.3) H Aspartate Amino Transf (AST/SGOT) 40 U/L (15-37) H Alanine Aminotransferase (ALT/SGPT) 10 U/L (12-78) L Alkaline Phosphatase 428 U/L (46-116) H Pro-B-Type Natriuretic Peptide 43982 pg/mL (0-125) H Total Protein 6.6 G/DL (6.4-8.2) Albumin 1.0 G/DL (3.4-5.0) L Globulin 5.6 g/dL Albumin/Globulin Ratio 0.2 (1.0-2.7) L Objective GENERAL: The patient is a very ill-appearing gentleman, in mild respiratory distress with nasal flaring. HEENT: Atraumatic and normocephalic. Anicteric. Conjunctival pallor is present. Pupils are equal, round, and reactive to light and accommodation. Extraocular muscles are intact. NECK: JVP is less than 5 cm. No carotid bruits. Carotid upstrokes 2+ bilaterally. CARDIOVASCULAR: Normal S1, S2. Regular rate and rhythm. Tachycardic. No murmurs, gallops, or rubs. PMI is at fourth intercostal space in the midclavicular line. LUNGS: Bilateral crackles. ABDOMEN: Soft, nontender, and nondistended. No hepatosplenomegaly. Positive bowel sounds. EXTREMITIES: Bilateral lower extremity edema. There are some patches of nonblanching erythematous rash, now painful to palpation. Alvarado Lee MD Mar 28, 2018 23:07
[2018-03-29] VITALS: BP 142/83
[2018-03-29] MEDS: Morphine Sulfate 2mg/ml Inj(IV/IM USE ONLY) IVP PRN ×2 (02:17→19:51)
[2018-03-29 04:00] VITALS: BP 123/78
[2018-03-29] MEDS: Morphine Sulfate 4mg/ml Inj (IV USE ONLY) IVP PRN ×5 (06:05→21:24)
[2018-03-29 08:00] VITALS: BP 111/73
[2018-03-29] MEDS: ceFAZolin 1gm/50ml Premix 50 ML IV SCH ×2 (08:52→21:19)
[2018-03-29] MEDS: Heparin 5000 units/ml inj SUBQ SCH ×2 (08:56→21:20)
[2018-03-29] MEDS ORDERED: NS 275ml ONE (10:54)
[2018-03-29] MEDS ORDERED: Tubing IV Secondary IV ONE (10:54)
[2018-03-29] MEDS ORDERED: D5W 275ml ONE (10:54)
[2018-03-29] MEDS ORDERED: LR 1000ml ONE (10:54)
[2018-03-29 12:00] VITALS: BP 132/82
--- NOTE | 2018-03-29 14:55 | Infectious Diseases Prog Note ---
Assessment/Plan Assessment/Plan A 1. staph aureus sepsis 2. staph aureus UTI 3. 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 leucocytosis improving 5. renal failure 6. substance abuse 7. vasculitic ras8. Hyponatremia P 1. continue Ancef decrease dose for renal failure 2. transfer pending 3. f/u labs Subjective ROS Limited/Unobtainable: No Constitutional: Reports: no symptoms HEENT: Reports: no symptoms Respiratory: Reports: shortness of breath Cardiovascular: Reports: chest pain Genitourinary: Reports: no symptoms Musculoskeletal: Reports: other - leg cramps Allergies: Coded Allergies: No Known Allergies (Unverified , 12/11/13) Objective Vital Signs Last 24 Hour Vital Signs Date Time Temp Pulse Resp B/P (MAP) Pulse Ox O2 Delivery O2 Flow Rate FiO2 03/29/18 12:00 Nasal Cannula 6.0 03/29/18 12:00 97.8 113 20 132/82 (99) 99 97.8 03/29/18 12:00 117 03/29/18 11:32 117 03/29/18 08:00 97.6 107 20 111/73 (86) 100 97.6 03/29/18 08:00 Nasal Cannula 6.0 03/29/18 07:59 112 03/29/18 04:00 Nasal Cannula 6.0 03/29/18 04:00 109 03/29/18 04:00 97.7 109 20 123/78 (93) 99 97.7 03/29/18 00:00 97.9 124 20 142/83 (102) 98 97.9 03/29/18 00:00 113 03/29/18 00:00 Nasal Cannula 6.0 03/28/18 20:31 97 Nasal Cannula 4.0 36 03/28/18 20:31 Nasal Cannula 4.0 36 03/28/18 20:26 98.2 03/28/18 20:00 98.2 113 21 140/85 (103) 99 98.2 03/28/18 20:00 115 03/28/18 20:00 Nasal Cannula 6.0 03/28/18 16:00 98.2 113 21 134/84 (101) 95 98.2 113 03/28/18 16:00 111 03/28/18 16:00 Venturi Mask 15.0 03/28/18 15:39 98.0 7/26/18 15:09 98.0 Height (Feet): 5 Height (Inches): 11.00 Weight (Pounds): 215 HEENT: mucous membranes moist Respiratory/Chest: lungs clear Cardiovascular: tachycardia Abdomen: soft, non tender Extremities: other - pedal edema Skin: rash, other - petechial and purpuric Neurologic/Psychiatric: alert, oriented x 3, responsive Current Medications Medications (Trade) Dose Ordered Sig/Zach Route PRN Reason Start Time Stop Time Status Last Admin Dose Admin Acetaminophen (Tylenol) 650 mg Q4H PRN ORAL Mild Pain/Temp > 100.5 03/24/18 17:00 04/21/18 16:59 03/28/18 22:24 Al Hydroxide/Mg Hydroxide (Mylanta) 30 ml Q4H PRN ORAL Nausea & Vomiting 03/24/18 17:00 04/22/18 16:59 Bisacodyl (Dulcolax) 10 mg DAILYPRN PRN ORAL Constipation 03/28/18 21:00 04/27/18 20:59 03/28/18 22:24 Cefazolin Sodium 50 ml @ 100 mls/hr Q12HR IV 03/28/18 21:00 03/31/18 20:59 03/29/18 08:52 Chlorhexidine Gluconate (Ayala-Hex 2%) 1 applic DAILY@2000 TOPIC 03/24/18 20:00 04/22/18 19:59 03/28/18 20:25 Heparin Sodium (Porcine) (Heparin 5000 units/ml) 5,000 units EVERY 12 HOURS SUBQ 03/24/18 21:00 04/21/18 20:59 03/29/18 08:56 Lorazepam (Ativan 2mg/ml 1ml) 1 mg Q3H PRN IV For Anxiety 03/24/18 16:30 03/30/18 16:29 03/28/18 22:23 Morphine Sulfate (Morphine Sulfate) 2 mg Q3H PRN IVP Moderate Pain (Pain Scale 4-6) 03/24/18 16:30 03/30/18 16:29 03/29/18 02:17 Morphine Sulfate (Morphine Sulfate) 4 mg Q3H PRN IVP Severe Pain (Pain Scale 7-10) 03/24/18 17:30 03/30/18 17:29 03/29/18 12:26 Ondansetron HCl (Zofran) 4 mg Q6H PRN IVP Nausea & Vomiting 03/24/18 16:30 04/22/18 16:29 03/28/18 14:42 Pantoprazole (Protonix) 40 mg DAILY ORAL 03/25/18 09:00 04/22/18 08:59 03/29/18 08:52 Zolpidem Tartrate (Ambien) 5 mg HSPRN PRN ORAL Insomnia 03/24/18 21:00 03/29/18 20:59 Rakesh Michaud MD Mar 29, 2018 14:55
[2018-03-29 16:00] VITALS: BP 129/78
--- NOTE | 2018-03-29 17:24 | Cardiology Progress Note ---
Assessment/Plan Assessment/Plan 1. 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 Requires TV repair in view of embolization and presence of immunologic phenomena , Awaiting transfer to a facility that provides CT surgery. Refused by [facility]. Meanwhile continue IV ABx per ID recommendations. Normal LVEF. 2. Sinus tachycardia due to sepsis/SIRS. 3. Hypoxemic respiratory failure. 4. Systemic inflammatory response disease/septic embolization 5. Proteinuria with hypoalbuminemia. Subjective Subjective Sinus tachycardia at 113. On nasal cannula. Afebrile. Objective Last 24 Hour Vital Signs Date Time Temp Pulse Resp B/P (MAP) Pulse Ox O2 Delivery O2 Flow Rate FiO2 03/29/18 12:00 Nasal Cannula 6.0 03/29/18 12:00 97.8 113 20 132/82 (99) 99 97.8 03/29/18 12:00 117 03/29/18 11:32 117 03/29/18 08:00 97.6 107 20 111/73 (86) 100 97.6 03/29/18 08:00 Nasal Cannula 6.0 03/29/18 07:59 112 03/29/18 04:00 Nasal Cannula 6.0 03/29/18 04:00 109 03/29/18 04:00 97.7 109 20 123/78 (93) 99 97.7 03/29/18 00:00 97.9 124 20 142/83 (102) 98 97.9 03/29/18 00:00 113 03/29/18 00:00 Nasal Cannula 6.0 03/28/18 20:31 97 Nasal Cannula 4.0 36 03/28/18 20:31 Nasal Cannula 4.0 36 03/28/18 20:26 98.2 03/28/18 20:00 98.2 113 21 140/85 (103) 99 98.2 03/28/18 20:00 115 03/28/18 20:00 Nasal Cannula 6.0 Intake and Output 03/28/18 03/29/18 19:00 07:00 Intake Total 950 ml 450 ml Output Total 400 ml 375 ml Balance 550 ml 75 ml Intake Oral 450 ml 400 ml IV Total 500 ml 50 ml Output Urine Total 400 ml 375 ml 2D Echo: LVEF 55%, severe TR with TV vegetation, RVSP 36 mmHg Objective HEENT: Atraumatic and normocephalic. Anicteric. Conjunctival pallor is present. Pupils are equal, round, and reactive to light and accommodation. Extraocular muscles are intact. NECK: JVP is less than 5 cm. No carotid bruits. Carotid upstrokes 2+ bilaterally. CARDIOVASCULAR: Normal S1, S2. Regular rate and rhythm. Tachycardic. No murmurs, gallops, or rubs. PMI is at fourth intercostal space in the midclavicular line. LUNGS: Bilateral crackles. ABDOMEN: Soft, nontender, and nondistended. No hepatosplenomegaly. Positive bowel sounds. EXTREMITIES: Bilateral lower extremity edema. There are some patches of nonblanching erythematous rash, now painful to palpation. Alvarado Lee MD Mar 29, 2018 17:24
[2018-03-29] MEDS: Dyna-Hex 2% Top Sol 2oz TOPIC SCH (19:50)
[2018-03-29 19:53] VITALS: BP 129/73
--- NOTE | 2018-03-29 23:34 | Pulmonology Progress Note ---
Assessment/Plan Assessment/Plan Assessment/Plan 1. CT consistent with septic emboli. 2. Heroin abuse. 3. Elevated liver enzymes 4. Significantly reduced albumin. 5. Severe protein-calorie malnutrition 6. Lower extremity edema. negative venous 7. Hypoxemia. 8. Tachycardia. 9. Leukocytosis. 10. Sepsis. 11.endocarditis 12. coagulopathy PLAN needs emergent transfer for cardiac surgery monitor wbc continue antibiotics d/w cards guarded Subjective Allergies: Coded Allergies: No Known Allergies (Unverified , 12/11/13) Subjective bcx positive CT noted cards appreciated +endocarditis Objective Last 24 Hour Vital Signs Date Time Temp Pulse Resp B/P (MAP) Pulse Ox O2 Delivery O2 Flow Rate FiO2 03/26/18 04:00 98.1 104 20 126/77 (93) 99 98.1 03/26/18 04:00 110 03/26/18 00:00 99.0 102 24 125/73 (90) 95 99.0 03/26/18 00:00 103 03/25/18 20:00 99.1 102 24 152/89 (110) 98 99.1 03/25/18 20:00 110 03/25/18 19:08 Venturi Mask 15.0 55 03/25/18 19:08 96 Venturi Mask 15.0 55 03/25/18 18:47 98.3 03/25/18 16:00 105 03/25/18 16:00 98.3 109 26 145/85 (105) 98 98.3 03/25/18 15:57 98.3 03/25/18 15:27 98.7 03/25/18 14:45 100 28 122/82 100 Venturi Mask 55 03/25/18 14:30 98.7 102 25 126/84 100 Venturi Mask 55 98.7 03/25/18 14:15 98 27 133/76 100 Venturi Mask 55 03/25/18 14:09 210.4 97 29 100 03/25/18 14:05 210.4 77 28 100 03/25/18 14:00 102 29 128/84 100 Venturi Mask 55 03/25/18 13:50 100 30 127/79 100 Venturi Mask 55 03/25/18 13:44 99 100 28 125/77 100 Venturi Mask 55 99.0 03/25/18 12:00 Venturi Mask 15.0 03/25/18 12:00 98.5 24 138/85 (102) 99 98.5 03/25/18 12:00 101 03/25/18 11:10 98.2 03/25/18 09:00 Venturi Mask 15.0 03/25/18 08:05 98.4 03/25/18 08:00 98.6 103 24 133/78 (96) 99 98.6 03/25/18 08:00 Venturi Mask 15.0 03/25/18 08:00 102 Intake and Output 03/25/18 03/26/18 19:00 07:00 Intake Total 3150 ml 1351.800 ml Output Total 780 ml Balance 2370 ml 1351.800 ml Intake Oral 800 ml IV Total 2350 ml 1351.800 ml Output Urine Total 780 ml Laboratory Tests 03/25/18 08:50: Arterial Blood pH 7.496H, Arterial Blood Partial Pressure CO2 29.4L, Arterial Blood Partial Pressure O2 81.9, Arterial Blood HCO3 22.2, Arterial Blood Oxygen Saturation 95.0, Arterial Blood Base Excess -0.6, Elieser Test Positive 03/25/18 16:45: Random Vancomycin Level 17.2 03/26/18 03:00: Random Vancomycin Level 28.1 Height (Feet): 5 Height (Inches): 11.00 Weight (Pounds): 208 Objective WDWN mild sob reduced breath sounds bilaterally without rhonchi or wheeze [id number] tachy without MRG NABS nontender no HSM no CC noted edema nonfocal Subjective Allergies: Coded Allergies: No Known Allergies (Unverified , 12/11/13) Objective Last 24 Hour Vital Signs Date Time Temp Pulse Resp B/P (MAP) Pulse Ox O2 Delivery O2 Flow Rate FiO2 03/29/18 21:31 Venturi Mask 15.0 55 03/29/18 21:29 100 Venturi Mask 14.0 55 03/29/18 20:00 116 03/29/18 19:53 97.7 114 24 129/73 (91) 100 97.7 03/29/18 16:00 98.1 114 24 129/78 (95) 100 98.1 03/29/18 16:00 Nasal Cannula 6.0 03/29/18 16:00 113 03/29/18 12:00 Nasal Cannula 6.0 7/27/18 12:00 97.8 113 20 132/82 (99) 99 97.8 03/29/18 12:00 117 03/29/18 11:32 117 03/29/18 08:00 97.6 107 20 111/73 (86) 100 97.6 03/29/18 08:00 Nasal Cannula 6.0 03/29/18 07:59 112 03/29/18 04:00 Nasal Cannula 6.0 03/29/18 04:00 109 03/29/18 04:00 97.7 109 20 123/78 (93) 99 97.7 03/29/18 00:00 97.9 124 20 142/83 (102) 98 97.9 03/29/18 00:00 113 03/29/18 00:00 Nasal Cannula 6.0 Intake and Output 03/28/18 03/29/18 19:00 07:00 Intake Total 950 ml 450 ml Output Total 400 ml 375 ml Balance 550 ml 75 ml Intake Oral 450 ml 400 ml IV Total 500 ml 50 ml Output Urine Total 400 ml 375 ml Current Medications Medications (Trade) Dose Ordered Sig/Zach Route PRN Reason Start Time Stop Time Status Last Admin Dose Admin Acetaminophen (Tylenol) 650 mg Q4H PRN ORAL Mild Pain/Temp > 100.5 03/24/18 17:00 04/21/18 16:59 03/28/18 22:24 Al Hydroxide/Mg Hydroxide (Mylanta) 30 ml Q4H PRN ORAL Nausea & Vomiting 03/24/18 17:00 04/22/18 16:59 Bisacodyl (Dulcolax) 10 mg DAILYPRN PRN ORAL Constipation 03/28/18 21:00 04/27/18 20:59 03/28/18 22:24 Cefazolin Sodium 50 ml @ 100 mls/hr Q12HR IV 03/28/18 21:00 03/31/18 20:59 03/29/18 21:19 Chlorhexidine Gluconate (Ayala-Hex 2%) 1 applic DAILY@2000 TOPIC 03/24/18 20:00 04/22/18 19:59 03/29/18 19:50 Heparin Sodium (Porcine) (Heparin 5000 units/ml) 5,000 units EVERY 12 HOURS SUBQ 03/24/18 21:00 04/21/18 20:59 03/29/18 21:20 Lorazepam (Ativan 2mg/ml 1ml) 1 mg Q3H PRN IV For Anxiety 03/24/18 16:30 03/30/18 16:29 03/28/18 22:23 Morphine Sulfate (Morphine Sulfate) 2 mg Q3H PRN IVP Moderate Pain (Pain Scale 4-6) 03/24/18 16:30 03/30/18 16:29 03/29/18 19:51 Morphine Sulfate (Morphine Sulfate) 4 mg Q3H PRN IVP Severe Pain (Pain Scale 7-10) 03/24/18 17:30 03/30/18 17:29 03/29/18 21:24 Ondansetron HCl (Zofran) 4 mg Q6H PRN IVP Nausea & Vomiting 03/24/18 16:30 04/22/18 16:29 03/28/18 14:42 Pantoprazole (Protonix) 40 mg DAILY ORAL 03/25/18 09:00 04/22/18 08:59 03/29/18 08:52 Omkar Cedeno MD Mar 29, 2018 23:34
[2018-03-30] VITALS (22 sets, daily range): BP systolic 97–139; BP diastolic 60–90
[2018-03-30] MEDS: Morphine Sulfate 2mg/ml Inj(IV/IM USE ONLY) IVP PRN (00:30)
[2018-03-30] MEDS: Morphine Sulfate 4mg/ml Inj (IV USE ONLY) IVP PRN ×2 (03:30→13:48)
[2018-03-30 04:32] LABS: HEMATOCRIT 23.7 % (42.0-52.0); HEMOGLOBIN 8.1 G/DL (14.2-18.0); MEAN CORPUSCULAR VOLUME 82 FL (80-99); PLATELET COUNT 390 K/UL (150-450); RED BLOOD COUNT 2.88 M/UL (4.70-6.10); RED CELL DISTRIBUTION WIDTH 13.8 % (11.6-14.8); WHITE BLOOD COUNT 19.7 K/UL (4.8-10.8)
[2018-03-30 04:43] LABS: ANION GAP 12 mmol/L (5-15); BLOOD UREA NITROGEN 92 mg/dL (7-18); CALCIUM 7.9 MG/DL (8.5-10.1); CARBON DIOXIDE 18 MMOL/L (21-32); CHLORIDE 99 MMOL/L (98-107); CREATININE 4.7 MG/DL (0.55-1.30); SODIUM 128 MMOL/L (136-145)
[2018-03-30 04:45] LABS: POTASSIUM 6.5 MMOL/L (3.5-5.1)
[2018-03-30] MEDS ORDERED: Sodium Bicarbonate 50ml Carp IV SCH ×2 (06:15→06:30)
[2018-03-30] MEDS ORDERED: Sodium Polystyrene Sulfonate 15gm Powder ORAL SCH (06:15)
[2018-03-30] MEDS ORDERED: Calcium Gluconate 1gm/10ml vial IVP SCH (06:15)
[2018-03-30] MEDS: ceFAZolin 1gm/50ml Premix 50 ML IV SCH (08:55)
[2018-03-30] MEDS: Heparin 5000 units/ml inj SUBQ SCH (08:58)
--- NOTE | 2018-03-30 10:06 | Infectious Diseases Prog Note ---
Assessment/Plan Assessment/Plan antibiotics : ancef A 1. staph aureus sepsis 2. staph aureus UTI 3. 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 leucocytosis improving 5. renal failure 6. substance abuse P 1. continue ancef 2. will follow up cultures 3. [facility] transfer pending Subjective Constitutional: Denies: fever, chills Respiratory: Denies: shortness of breath, dry cough Gastrointestinal/Abdominal: Denies: nausea, vomiting, diarrhea Musculoskeletal: Reports: pain Allergies: Coded Allergies: No Known Allergies (Unverified , 12/11/13) Objective Vital Signs Last 24 Hour Vital Signs Date Time Temp Pulse Resp B/P (MAP) Pulse Ox O2 Delivery O2 Flow Rate FiO2 03/30/18 09:24 94 Nasal Cannula 4.0 36 03/30/18 09:24 Nasal Cannula 4.0 36 03/30/18 08:00 97.4 114 22 114/64 (81) 95 97.4 03/30/18 04:00 Venturi Mask 14.0 03/30/18 04:00 112 03/30/18 03:43 97.9 109 24 124/68 (86) 96 97.9 03/30/18 00:00 Venturi Mask 14.0 03/30/18 00:00 115 03/30/18 00:00 97.9 112 24 136/82 (100) 100 97.9 03/29/18 21:31 Venturi Mask 15.0 55 03/29/18 21:29 100 Venturi Mask 14.0 55 03/29/18 20:00 Venturi Mask 14.0 03/29/18 20:00 116 03/29/18 19:53 97.7 114 24 129/73 (91) 100 97.7 03/29/18 16:00 98.1 114 24 129/78 (95) 100 98.1 03/29/18 16:00 Nasal Cannula 6.0 03/29/18 16:00 113 03/29/18 12:00 Nasal Cannula 6.0 03/29/18 12:00 97.8 113 20 132/82 (99) 99 97.8 03/29/18 12:00 117 03/29/18 11:32 117 Height (Feet): 5 Height (Inches): 11.00 Weight (Pounds): 217 Respiratory/Chest: lungs clear Cardiovascular: normal rate, regular rhythm, no gallop/murmur Abdomen: soft, non tender Extremities: no edema, other - right IJ catheter Laboratory Tests Test 03/30/18 03:30 White Blood Count 19.7 K/UL (4.8-10.8) H Red Blood Count 2.88 M/UL (4.70-6.10) L Hemoglobin 8.1 G/DL (14.2-18.0) L Hematocrit 23.7 % (42.0-52.0) L Mean Corpuscular Volume 82 FL (80-99) Mean Corpuscular Hemoglobin 28.0 PG (27.0-31.0) Mean Corpuscular Hemoglobin Concent 34.1 G/DL (32.0-36.0) Red Cell Distribution Width 13.8 % (11.6-14.8) Platelet Count 390 K/UL (150-450) Mean Platelet Volume 6.1 FL (6.5-10.1) L Neutrophils (%) (Auto) % (45.0-75.0) Lymphocytes (%) (Auto) % (20.0-45.0) Monocytes (%) (Auto) % (1.0-10.0) Eosinophils (%) (Auto) % (0.0-3.0) Basophils (%) (Auto) % (0.0-2.0) Differential Total Cells Counted 100 Neutrophils % (Manual) 85 % (45-75) H Lymphocytes % (Manual) 8 % (20-45) L Monocytes % (Manual) 6 % (1-10) Eosinophils % (Manual) 1 % (0-3) Basophils % (Manual) 0 % (0-2) Band Neutrophils 0 % (0-8) Platelet Estimate Adequate Platelet Morphology Normal Hypochromasia 1+ Sodium Level 128 MMOL/L (136-145) L Potassium Level 6.5 MMOL/L (3.5-5.1) *H Chloride Level 99 MMOL/L (98-107) Carbon Dioxide Level 18 MMOL/L (21-32) L Anion Gap 12 mmol/L (5-15) Blood Urea Nitrogen 92 mg/dL (7-18) H Creatinine 4.7 MG/DL (0.55-1.30) H Estimat Glomerular Filtration Rate 14.2 mL/min (>60) Glucose Level 118 MG/DL (74-106) H Calcium Level 7.9 MG/DL (8.5-10.1) L Current Medications Medications (Trade) Dose Ordered Sig/Zach Route PRN Reason Start Time Stop Time Status Last Admin Dose Admin Acetaminophen (Tylenol) 650 mg Q4H PRN ORAL Mild Pain/Temp > 100.5 03/24/18 17:00 04/21/18 16:59 03/28/18 22:24 Al Hydroxide/Mg Hydroxide (Mylanta) 30 ml Q4H PRN ORAL Nausea & Vomiting 03/24/18 17:00 04/22/18 16:59 Bisacodyl (Dulcolax) 10 mg DAILYPRN PRN ORAL Constipation 03/28/18 21:00 04/27/18 20:59 03/28/18 22:24 Cefazolin Sodium 50 ml @ 100 mls/hr Q12HR IV 03/28/18 21:00 03/31/18 20:59 03/30/18 08:55 Chlorhexidine Gluconate (Ayala-Hex 2%) 1 applic DAILY@2000 TOPIC 03/24/18 20:00 04/22/18 19:59 03/29/18 19:50 Heparin Sodium (Porcine) (Heparin 5000 units/ml) 5,000 units EVERY 12 HOURS SUBQ 03/24/18 21:00 04/21/18 20:59 03/30/18 08:58 Lorazepam (Ativan 2mg/ml 1ml) 1 mg Q3H PRN IV For Anxiety 03/24/18 16:30 03/30/18 16:29 03/28/18 22:23 Morphine Sulfate (Morphine Sulfate) 2 mg Q3H PRN IVP Moderate Pain (Pain Scale 4-6) 03/24/18 16:30 03/30/18 16:29 03/30/18 00:30 Morphine Sulfate (Morphine Sulfate) 4 mg Q3H PRN IVP Severe Pain (Pain Scale 7-10) 03/24/18 17:30 03/30/18 17:29 03/30/18 03:30 Ondansetron HCl (Zofran) 4 mg Q6H PRN IVP Nausea & Vomiting 03/24/18 16:30 04/22/18 16:29 03/28/18 14:42 Pantoprazole (Protonix) 40 mg DAILY ORAL 03/25/18 09:00 04/22/18 08:59 03/30/18 08:54 LAURA ABEBE Mar 30, 2018 10:06
[2018-03-30 12:41] LABS: ANION GAP 11 mmol/L (5-15); BLOOD UREA NITROGEN 98 mg/dL (7-18); CALCIUM 8.1 MG/DL (8.5-10.1); CARBON DIOXIDE 20 MMOL/L (21-32); CHLORIDE 99 MMOL/L (98-107); CREATININE 4.7 MG/DL (0.55-1.30); SODIUM 130 MMOL/L (136-145)
[2018-03-30 12:44] LABS: POTASSIUM 6.5 MMOL/L (3.5-5.1)
--- NOTE | 2018-03-30 13:00 | Consultation ---
DATE OF CONSULTATION: 03/30/2018 DATE OF ADMISSION: 03/23/2018 CONSULTING PHYSICIAN: Ho Villalpando M.D. REFERRING PHYSICIAN: Paddy Boss M.D. REASON FOR CONSULTATION: 1. Acute kidney injury. 2. Hyperkalemia. HISTORY OF PRESENT ILLNESS: The patient is a 37-year-old gentleman who presented to emergency room a week ago for further evaluation and care of petechial rash and swelling in the legs over several days prior to admission. During his hospitalization, he has been diagnosed with septic emboli and infective endocarditis with tricuspid valve vegetations and is now awaiting transfer for open-heart surgery. When it was noted that throughout the last several days, his renal function has progressively worsened from normal to 1.5 and currently creatinine is 4.7 with BUN of 92 and potassium of 6.5. PAST MEDICAL HISTORY: Septic emboli. HOME MEDICATIONS: None SOCIAL HISTORY: Positive for tobacco and heroin abuse. REVIEW OF SYSTEMS: NEUROLOGIC: The patient denies headache, change in vision, syncope, or presyncopal episodes. CARDIOVASCULAR: No current chest pain, palpitations, or angina. PULMONARY: Mild shortness of breath. Nonproductive cough. GASTROINTESTINAL/GENITOURINARY: No nausea, vomiting, or diarrhea. ENDOCRINOLOGIC: No night sweats, fevers, or chills. LABORATORY DATA: Laboratories dated 01/28/2018, potassium 6.5, sodium 128, bicarbonate 18, BUN 92, creatinine 4.7, calcium 7.9. AST and ALT of 40 and 10 respectively. Total bilirubin 1.9. Hemoglobin 8.1, white cell count 19.7, platelet count 390,000. PHYSICAL EXAMINATION: VITAL SIGNS: Blood pressure 147/70, 95% oxygen on Venturi mask, pulse 112, temperature 98.2. GENERAL: The patient is awake, in mild distress. HEENT: Extraocular muscles intact. No lymphadenopathy noted. Oropharyngeal mucosa is clear and dry. CARDIOVASCULAR: S1, S2. Soft S3 and a 2/6 systolic murmur. ABDOMEN: Nondistended and nontender. EXTREMITIES: Diffuse petechial rashes noted throughout the entire body with 1+ edema bilaterally. ASSESSMENT AND PLAN: 1. Acute kidney injury. At this time, most likely multifactorial ATN from underlying sepsis and component of vancomycin toxicity. Last vancomycin trough on March 25 was 30.0, random level on Mckenzie 24 was 28.1. The patient has infective endocarditis from underlying use of IV heroin. At this time, we will check a stat vancomycin random level to ensure that the level has come down to therapeutic range. We will diurese the patient as possible. Avoid any further nephrotoxins. Blood pressure is currently stable. Due to underlying infective endocarditis/sepsis and worsening renal function, we would recommend avoiding nephrotoxins and monitoring renal function at this time. The patient may require hemodialysis shortly. CT of the abdomen and pelvis did not show any renal abnormality or hydronephrosis. 2. Hyperkalemia secondary to renal insufficiency. We will recheck potassium at noon today as the patient was given Kayexalate this morning. 3. Hyponatremia. Secondary to volume overload and renal insufficiency. We will diurese the patient as necessary. 4. Metabolic acidosis secondary to renal insufficiency. Continue to monitor as the patient will likely need hemodialysis within a day or two. 5. Sepsis secondary to infectious endocarditis. The patient with Staph aureus sepsis and tricuspid valve endocarditis with septic emboli. Awaiting transfer to cardiovascular surgery at [facility]. Ho Villalpando MD DR: Shahrzad JOB#: [id number] CC:
--- NOTE | 2018-03-30 15:47 | Cardiology Progress Note ---
Assessment/Plan Assessment/Plan 1. 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 Requires TV repair in view of embolization and presence of immunologic phenomena , Awaiting transfer to a facility that provides CT surgery. Refused by [facility]. Meanwhile continue IV ABx per ID recommendations. Normal LVEF. 2. Sinus tachycardia due to sepsis/SIRS. 3. Hypoxemic respiratory failure. 4. Systemic inflammatory response disease/septic embolization 5. Proteinuria with hypoalbuminemia. 6. Hemoptysis/pulmonary hemorrhage, ? mycotic aneurysm Subjective Subjective Sinus tachycardia at 121. Massive hemoptysis. Objective Last 24 Hour Vital Signs Date Time Temp Pulse Resp B/P (MAP) Pulse Ox O2 Delivery O2 Flow Rate FiO2 03/30/18 12:00 Venturi Mask 14.0 03/30/18 12:00 97.9 121 22 110/61 (77) 95 97.9 03/30/18 12:00 105 03/30/18 09:24 94 Nasal Cannula 4.0 36 03/30/18 09:24 Nasal Cannula 4.0 36 03/30/18 08:00 117 03/30/18 08:00 97.4 114 22 114/64 (81) 95 97.4 03/30/18 08:00 Venturi Mask 14.0 03/30/18 04:00 Venturi Mask 14.0 03/30/18 04:00 112 03/30/18 03:43 97.9 109 24 124/68 (86) 96 97.9 03/30/18 00:00 Venturi Mask 14.0 03/30/18 00:00 115 03/30/18 00:00 97.9 112 24 136/82 (100) 100 97.9 03/29/18 21:31 Venturi Mask 15.0 55 03/29/18 21:29 100 Venturi Mask 14.0 55 03/29/18 20:00 Venturi Mask 14.0 03/29/18 20:00 116 03/29/18 19:53 97.7 114 24 129/73 (91) 100 97.7 03/29/18 16:00 Venturi Mask 14.0 03/29/18 16:00 98.1 114 24 129/78 (95) 100 98.1 03/29/18 16:00 113 Intake and Output 03/29/18 03/30/18 19:00 07:00 Intake Total 740 ml 450 ml Output Total 350 ml 250 ml Balance 390 ml 200 ml Intake Oral 740 ml 400 ml IV Total 50 ml Output Urine Total 350 ml 250 ml 2D Echo: LVEF 55%, severe TR with TV vegetation, RVSP 36 mmHg Laboratory Tests Test 03/30/18 03:30 03/30/18 11:50 White Blood Count 19.7 K/UL (4.8-10.8) H Red Blood Count 2.88 M/UL (4.70-6.10) L Hemoglobin 8.1 G/DL (14.2-18.0) L Hematocrit 23.7 % (42.0-52.0) L Mean Corpuscular Volume 82 FL (80-99) Mean Corpuscular Hemoglobin 28.0 PG (27.0-31.0) Mean Corpuscular Hemoglobin Concent 34.1 G/DL (32.0-36.0) Red Cell Distribution Width 13.8 % (11.6-14.8) Platelet Count 390 K/UL (150-450) Mean Platelet Volume 6.1 FL (6.5-10.1) L Neutrophils (%) (Auto) % (45.0-75.0) Lymphocytes (%) (Auto) % (20.0-45.0) Monocytes (%) (Auto) % (1.0-10.0) Eosinophils (%) (Auto) % (0.0-3.0) Basophils (%) (Auto) % (0.0-2.0) Differential Total Cells Counted 100 Neutrophils % (Manual) 85 % (45-75) H Lymphocytes % (Manual) 8 % (20-45) L Monocytes % (Manual) 6 % (1-10) Eosinophils % (Manual) 1 % (0-3) Basophils % (Manual) 0 % (0-2) Band Neutrophils 0 % (0-8) Platelet Estimate Adequate Platelet Morphology Normal Hypochromasia 1+ Sodium Level 128 MMOL/L (136-145) L 130 MMOL/L (136-145) L Potassium Level 6.5 MMOL/L (3.5-5.1) *H 6.5 MMOL/L (3.5-5.1) *H Chloride Level 99 MMOL/L (98-107) 99 MMOL/L (98-107) Carbon Dioxide Level 18 MMOL/L (21-32) L 20 MMOL/L (21-32) L Anion Gap 12 mmol/L (5-15) 11 mmol/L (5-15) Blood Urea Nitrogen 92 mg/dL (7-18) H 98 mg/dL (7-18) H Creatinine 4.7 MG/DL (0.55-1.30) H 4.7 MG/DL (0.55-1.30) H Estimat Glomerular Filtration Rate 14.2 mL/min (>60) 14.2 mL/min (>60) Glucose Level 118 MG/DL (74-106) H 147 MG/DL (74-106) H Calcium Level 7.9 MG/DL (8.5-10.1) L 8.1 MG/DL (8.5-10.1) L Random Vancomycin Level 9.1 ug/mL Objective HEENT: Atraumatic and normocephalic. Anicteric. Conjunctival pallor is present. Pupils are equal, round, and reactive to light and accommodation. Extraocular muscles are intact. NECK: JVP is less than 5 cm. No carotid bruits. Carotid upstrokes 2+ bilaterally. CARDIOVASCULAR: Normal S1, S2. Regular rate and rhythm. Tachycardic. No murmurs, gallops, or rubs. PMI is at fourth intercostal space in the midclavicular line. LUNGS: Bilateral crackles. ABDOMEN: Soft, nontender, and nondistended. No hepatosplenomegaly. Positive bowel sounds. EXTREMITIES: Bilateral lower extremity edema. There are some patches of nonblanching erythematous rash, now painful to palpation. Alvarado Lee MD Mar 30, 2018 15:47
[2018-03-30 16:57] LABS: HEMATOCRIT 20.4 % (42.0-52.0); MEAN CORPUSCULAR VOLUME 82 FL (80-99); PLATELET COUNT 376 K/UL (150-450); RED BLOOD COUNT 2.49 M/UL (4.70-6.10); RED CELL DISTRIBUTION WIDTH 13.8 % (11.6-14.8); WHITE BLOOD COUNT 18.4 K/UL (4.8-10.8)
[2018-03-30] MEDS ORDERED: Insulin Human Regular 100units/ml 3ml IV ONE (17:00)
[2018-03-30] MEDS ORDERED: Calcium Gluconate 10% 1 GM in NS 110 ML IVPB ONE (17:00)
[2018-03-30] MEDS ORDERED: Pantoprazole 80 MG in NS 250 ML IV SCH (17:00)
[2018-03-30] MEDS ORDERED: Pantoprazole Inj IVP SCH (17:00)
[2018-03-30 17:08] LABS: HEMOGLOBIN 6.9 G/DL (14.2-18.0)
[2018-03-30] MEDS ORDERED: Morphine Sulfate 2mg/ml Inj(IV/IM USE ONLY) IVP PRN (18:15)
[2018-03-30] MEDS ORDERED: Bisacodyl EC 5mg tab ORAL PRN (19:00)
--- NOTE | 2018-03-30 19:29 | Pulmonology Progress Note ---
Assessment/Plan Assessment/Plan Assessment/Plan 1. CT consistent with septic emboli. 2. Heroin abuse. 3. Elevated liver enzymes 4. Significantly reduced albumin. 5. Severe protein-calorie malnutrition 6. Lower extremity edema. negative venous 7. Hypoxemia. 8. Tachycardia. 9. Leukocytosis. 10. Sepsis. 11.endocarditis 12. coagulopathy 13. GI bleed earlier today - GI consulted PLAN needs emergent transfer for cardiac surgery monitor wbc continue antibiotics d/w cards guarded TF to ICU, GI Dr Hendrickson TF PRN, keep HB >7, check INT NPO except meds IV Ptotonix Subjective Allergies: Coded Allergies: No Known Allergies (Unverified , 12/11/13) Subjective bcx positive CT noted cards appreciated +endocarditis Objective Last 24 Hour Vital Signs Date Time Temp Pulse Resp B/P (MAP) Pulse Ox O2 Delivery O2 Flow Rate FiO2 03/26/18 04:00 98.1 104 20 126/77 (93) 99 98.1 03/26/18 04:00 110 03/26/18 00:00 99.0 102 24 125/73 (90) 95 99.0 03/26/18 00:00 103 03/25/18 20:00 99.1 102 24 152/89 (110) 98 99.1 03/25/18 20:00 110 03/25/18 19:08 Venturi Mask 15.0 55 03/25/18 19:08 96 Venturi Mask 15.0 55 03/25/18 18:47 98.3 03/25/18 16:00 105 03/25/18 16:00 98.3 109 26 145/85 (105) 98 98.3 03/25/18 15:57 98.3 03/25/18 15:27 98.7 03/25/18 14:45 100 28 122/82 100 Venturi Mask 55 03/25/18 14:30 98.7 102 25 126/84 100 Venturi Mask 55 98.7 03/25/18 14:15 98 27 133/76 100 Venturi Mask 55 03/25/18 14:09 210.4 97 29 100 03/25/18 14:05 210.4 77 28 100 03/25/18 14:00 102 29 128/84 100 Venturi Mask 55 03/25/18 13:50 100 30 127/79 100 Venturi Mask 55 03/25/18 13:44 99 100 28 125/77 100 Venturi Mask 55 99.0 03/25/18 12:00 Venturi Mask 15.0 03/25/18 12:00 98.5 24 138/85 (102) 99 98.5 03/25/18 12:00 101 03/25/18 11:10 98.2 03/25/18 09:00 Venturi Mask 15.0 03/25/18 08:05 98.4 03/25/18 08:00 98.6 103 24 133/78 (96) 99 98.6 03/25/18 08:00 Venturi Mask 15.0 03/25/18 08:00 102 Intake and Output 03/25/18 03/26/18 19:00 07:00 Intake Total 3150 ml 1351.800 ml Output Total 780 ml Balance 2370 ml 1351.800 ml Intake Oral 800 ml IV Total 2350 ml 1351.800 ml Output Urine Total 780 ml Laboratory Tests 03/25/18 08:50: Arterial Blood pH 7.496H, Arterial Blood Partial Pressure CO2 29.4L, Arterial Blood Partial Pressure O2 81.9, Arterial Blood HCO3 22.2, Arterial Blood Oxygen Saturation 95.0, Arterial Blood Base Excess -0.6, Elieser Test Positive 03/25/18 16:45: Random Vancomycin Level 17.2 03/26/18 03:00: Random Vancomycin Level 28.1 Height (Feet): 5 Height (Inches): 11.00 Weight (Pounds): 208 Objective WDWN mild sob reduced breath sounds bilaterally without rhonchi or wheeze [id number] tachy without MRG NABS nontender no HSM no CC noted edema nonfocal Subjective ROS Limited/Unobtainable: No Constitutional: Reports: no symptoms HEENT: Repors: no symptoms Respiratory: Reports: no symptoms Cardiovascular: Reports: other Gastrointestinal/Abdominal: Reports: nausea, other Genitourinary: Reports: no symptoms Neurologic: Reports: no symptoms Psychiatric: Reports: no symptoms Skin: Reports: no symptoms Endocrine: Reports: no symptoms Hematologic: Reports: no symptoms Musculoskeletal: Reports: no symptoms Allergies: Coded Allergies: No Known Allergies (Unverified , 12/11/13) Objective Last 24 Hour Vital Signs Date Time Temp Pulse Resp B/P (MAP) Pulse Ox O2 Delivery O2 Flow Rate FiO2 03/30/18 18:00 116 27 125/73 (90) 99 03/30/18 17:15 118 22 122/71 (88) 99 03/30/18 17:15 119 03/30/18 16:00 Venturi Mask 14.0 03/30/18 16:00 116 03/30/18 16:00 98.4 101 20 120/85 (97) 100 98.4 03/30/18 12:00 Venturi Mask 14.0 03/30/18 12:00 97.9 121 22 110/61 (77) 95 97.9 03/30/18 12:00 105 03/30/18 09:24 94 Nasal Cannula 4.0 36 03/30/18 09:24 Nasal Cannula 4.0 36 03/30/18 08:00 117 03/30/18 08:00 97.4 114 22 114/64 (81) 95 97.4 03/30/18 08:00 Venturi Mask 14.0 03/30/18 04:00 Venturi Mask 14.0 03/30/18 04:00 112 03/30/18 03:43 97.9 109 24 124/68 (86) 96 97.9 03/30/18 00:00 Venturi Mask 14.0 03/30/18 00:00 115 03/30/18 00:00 97.9 112 24 136/82 (100) 100 97.9 03/29/18 21:31 Venturi Mask 15.0 55 03/29/18 21:29 100 Venturi Mask 14.0 55 03/29/18 20:00 Venturi Mask 14.0 03/29/18 20:00 116 03/29/18 19:53 97.7 114 24 129/73 (91) 100 97.7 Intake and Output 03/29/18 03/30/18 19:00 07:00 Intake Total 740 ml 450 ml Output Total 350 ml 250 ml Balance 390 ml 200 ml Intake Oral 740 ml 400 ml IV Total 50 ml Output Urine Total 350 ml 250 ml Laboratory Tests 03/30/18 03:30: White Blood Count 19.7H, Red Blood Count 2.88L, Hemoglobin 8.1L, Hematocrit 23.7L, Mean Corpuscular Volume 82, Mean Corpuscular Hemoglobin 28.0, Mean Corpuscular Hemoglobin Concent 34.1, Red Cell Distribution Width 13.8, Platelet Count 390, Mean Platelet Volume 6.1L, Neutrophils (%) (Auto) , Lymphocytes (%) ( Auto) , Monocytes (%) (Auto) , Eosinophils (%) (Auto) , Basophils (%) (Auto) , Differential Total Cells Counted 100, Neutrophils % (Manual) 85H, Lymphocytes % (Manual) 8L, Monocytes % (Manual) 6, Eosinophils % (Manual) 1, Basophils % ( Manual) 0, Band Neutrophils 0, Platelet Estimate Adequate, Platelet Morphology Normal, Hypochromasia 1+, Sodium Level 128L, Potassium Level 6.5*H, Chloride Level 99, Carbon Dioxide Level 18L, Anion Gap 12, Blood Urea Nitrogen 92H, Creatinine 4.7H, Estimat Glomerular Filtration Rate 14.2, Glucose Level 118H, Calcium Level 7.9L 03/30/18 11:50: Sodium Level 130L, Potassium Level 6.5*H, Chloride Level 99, Carbon Dioxide Level 20L, Anion Gap 11, Blood Urea Nitrogen 98H, Creatinine 4.7H, Estimat Glomerular Filtration Rate 14.2, Glucose Level 147H, Calcium Level 8.1L, Random Vancomycin Level 9.1 03/30/18 15:35: Arterial Blood pH 7.380, Arterial Blood Partial Pressure CO2 32.3L, Arterial Blood Partial Pressure O2 76.8, Arterial Blood HCO3 18.8L, Arterial Blood Oxygen Saturation 92.4, Arterial Blood Base Excess -5.6, Elieser Test Positive 03/30/18 16:20: White Blood Count 18.4H, Red Blood Count 2.49L, Hemoglobin 6.9*L, Hematocrit 20.4L, Mean Corpuscular Volume 82, Mean Corpuscular Hemoglobin 27.8, Mean Corpuscular Hemoglobin Concent 33.8, Red Cell Distribution Width 13.8, Platelet Count 376, Mean Platelet Volume 5.7L, Neutrophils (%) (Auto) , Lymphocytes (%) ( Auto) , Monocytes (%) (Auto) , Eosinophils (%) (Auto) , Basophils (%) (Auto) , Differential Total Cells Counted 100, Neutrophils % (Manual) 76H, Lymphocytes % (Manual) 13L, Monocytes % (Manual) 4, Eosinophils % (Manual) 3, Basophils % ( Manual) 0, Band Neutrophils 4, Platelet Estimate Adequate, Platelet Morphology Normal, Hypochromasia 2+, Polychromasia 1+, Anisocytosis 2+, Prothrombin Time 29.4H, Prothromb Time International Ratio 3.0H Current Medications Medications (Trade) Dose Ordered Sig/Zach Route PRN Reason Start Time Stop Time Status Last Admin Dose Admin Acetaminophen (Tylenol) 650 mg Q4H PRN ORAL Mild Pain/Temp > 100.5 03/30/18 19:00 04/21/18 18:59 Al Hydroxide/Mg Hydroxide (Mylanta) 30 ml Q4H PRN ORAL Nausea & Vomiting 03/30/18 21:00 04/22/18 16:59 Bisacodyl (Dulcolax) 10 mg DAILYPRN PRN ORAL Constipation 03/30/18 19:00 04/27/18 18:59 Cefazolin Sodium 1 gm/Dextrose 55 ml @ 110 mls/hr Q12HR IVP 03/30/18 21:00 04/06/18 20:59 Chlorhexidine Gluconate (Ayala-Hex 2%) 1 applic DAILY@2000 TOPIC 03/30/18 20:00 04/22/18 19:59 Lorazepam (Ativan 2mg/ml 1ml) 1 mg Q4H PRN IV For Anxiety 03/30/18 19:00 04/06/18 18:59 Morphine Sulfate (Morphine Sulfate) 2 mg Q3H PRN IVP mod-severe pain (4-10) 03/30/18 18:15 04/06/18 18:14 Ondansetron HCl (Zofran) 4 mg Q6H PRN IVP Nausea & Vomiting 03/30/18 19:00 04/22/18 18:59 Pantoprazole 80 mg/Sodium Chloride 250 ml @ 25 mls/hr Q10H IV 03/30/18 17:00 03/31/18 02:59 03/30/18 17:45 Pantoprazole 80 mg/Sodium Chloride 250 ml @ 25 mls/hr Q10H IV 03/31/18 03:00 04/30/18 02:59 Sodium Chloride 1,000 ml @ 75 mls/hr [id number] IV 03/30/18 19:00 04/29/18 18:59 Omkar Cedeno MD Mar 30, 2018 19:29
[2018-03-30] MEDS ORDERED: Morphine Sulfate 2mg/ml Inj(IV/IM USE ONLY) IVP SCH (20:00)
[2018-03-30] MEDS ORDERED: Heparin 5000 units/ml inj SUBQ SCH (20:08)
--- NOTE | 2018-03-30 20:12 | Operative Note - PDOC ---
Operative Note Operative Note Date of Operation/Procedure: Mar 30, 2018 Chief Complaint: sepsis, renal insufficiency Pre-op Diagnosis: sepsis, renal insufficiency Procedure: left femoral temporary hemodialysis catheter insertion Post-op Diagnosis: same as pre-op Surgeon: Jair Martinez MD Bounty Trapper: None Anesthesia: local Specimen: none Complications: none Condition: stable Fluids: none Estimated Blood Loss: minimal Drains: none Packing: None Implant(s) used?: No Indications for Procedure 37M currently in intensive care unit under medical care and management. renal function poor and worsening state with acidosis, hyperkalemia, and worsening condition. Dialysis indicated and recommended as per nephrology. Plans for urgent dialysis. Temporary HD catheter placement indicated and necessary. Consent obtained from patient. Procedure performed at bedside in ICU. Description of Procedure Patient was made comfortable at bedside in ICU. left groin was prepped and draped in standard surgical fashion. local anesthetic was infiltrated into proposed site after anatomical site identified. finder needle used to cannulate left femoral vein on first stick. wire placed over needle and needle removed. small skin incision made near wire and dilators used to dilate. 12f temp HD cath 20cm inserted without complication. wire removed and discarded. lines flushed and aspirated. line sutured to two places. dressings applied. heparin flush used. patient tolerated well. Jair Martinez Mar 30, 2018 20:12
[2018-03-30] MEDS: Dyna-Hex 2% Top Sol 2oz TOPIC SCH (20:39)
[2018-03-30] MEDS: ceFAZolin sod 1 GM in D5W 55 ML IVP SCH (21:00)
[2018-03-30] MEDS ORDERED: ceFAZolin sod 1 GM in D5W 55 ML IVP SCH (21:00)
[2018-03-31] VITALS (24 sets, daily range): BP systolic 106–151; BP diastolic 51–94
[2018-03-31] MEDS ORDERED: Zolpidem 5mg tab ORAL PRN
[2018-03-31] MEDS: LORazepam Inj 2mg/ml 1ml IV PRN ×2 (00:48→22:19)
[2018-03-31] MEDS: Pantoprazole 80 MG in NS 250 ML IV SCH ×2 (04:17→12:59)
[2018-03-31 06:49] LABS: ANION GAP 8 mmol/L (5-15); BLOOD UREA NITROGEN 77 mg/dL (7-18); CALCIUM 7.5 MG/DL (8.5-10.1); CARBON DIOXIDE 26 MMOL/L (21-32); CHLORIDE 99 MMOL/L (98-107); CREATININE 3.8 MG/DL (0.55-1.30); SODIUM 133 MMOL/L (136-145)
[2018-03-31 06:54] LABS: HEMATOCRIT 22.9 % (42.0-52.0); HEMOGLOBIN 7.5 G/DL (14.2-18.0); MEAN CORPUSCULAR VOLUME 82 FL (80-99); PLATELET COUNT 379 K/UL (150-450); RED BLOOD COUNT 2.78 M/UL (4.70-6.10); RED CELL DISTRIBUTION WIDTH 13.9 % (11.6-14.8); WHITE BLOOD COUNT 17.5 K/UL (4.8-10.8)
[2018-03-31] MEDS: ceFAZolin sod 1 GM in D5W 55 ML IVP SCH ×2 (08:38→20:53)
--- NOTE | 2018-03-31 08:56 | Nephrology Progress Note ---
Assessment/Plan Assessment/Plan 1. MAGALI- multifact ATN (sepsis/vanc) - HD x #2 today - avoid any nephrotoxins 2. HyperK+ resolving on HD. Second Tx today 3. Sepsis- Endocarditis with TV vegetations 4. MOF- Renal/Liver/Cardiac with primary source of endocarditis, Abx per ID 5. GI Bleed- PPI gtt - INR 3, gave 2 units FFP - due to sepsis/liver dysfunction Subjective Date patient seen: Mar 31, 2018 Time patient seen: 08:52 ROS Limited/Unobtainable: No Constitutional: Reports: malaise, weakness Gastrointestinal/Abdominal: Reports: tarry stools Allergies: Coded Allergies: No Known Allergies (Unverified , 12/11/13) All Systems: reviewed and negative except above Subjective Patient trasnferred to ICU due to medical deterioration Objective Last 24 Hour Vital Signs Date Time Temp Pulse Resp B/P (MAP) Pulse Ox O2 Delivery O2 Flow Rate FiO2 03/31/18 07:00 119 21 129/88 (102) 95 03/31/18 06:00 117 29 116/85 (95) 96 03/31/18 05:00 113 29 116/73 (87) 100 03/31/18 04:00 119 03/31/18 04:00 98.6 112 25 114/80 (91) 100 98.6 03/31/18 04:00 Non-Rebreather 15.0 03/31/18 03:00 117 25 124/62 (82) 98 03/31/18 02:00 120 27 123/65 (84) 99 03/31/18 01:00 118 27 109/79 (89) 100 03/31/18 00:00 120 03/31/18 00:00 98.4 120 23 125/51 (75) 89 98.4 03/31/18 00:00 Non-Rebreather 15.0 03/30/18 23:45 120 27 110/61 (77) 98 03/30/18 23:30 119 30 103/60 (74) 100 03/30/18 23:15 120 26 104/62 (76) 99 03/30/18 23:00 121 25 110/73 (85) 99 03/30/18 22:51 Simple Mask 03/30/18 22:45 126 23 97/81 (86) 94 03/30/18 22:30 126 25 122/64 (83) 97 03/30/18 22:15 121 26 133/63 (86) 99 03/30/18 22:00 120 20 124/70 (88) 99 03/30/18 21:45 119 24 119/74 (89) 100 03/30/18 21:30 121 22 139/75 (96) 99 03/30/18 21:25 122 27 109/74 (86) 100 03/30/18 21:00 121 30 108/72 (84) 99 03/30/18 21:00 120 24 127/71 (89) 100 03/30/18 20:45 118 26 129/90 (103) 100 03/30/18 20:30 Simple Mask 03/30/18 20:00 Non-Rebreather 15.0 100 03/30/18 20:00 115 03/30/18 20:00 Non-Rebreather 15.0 03/30/18 20:00 98 Non-Rebreather 15.0 100 03/30/18 20:00 121 30 108/72 (84) 99 03/30/18 19:00 98.3 119 33 130/74 (92) 99 98.3 03/30/18 18:00 116 27 125/73 (90) 99 03/30/18 17:15 118 22 122/71 (88) 99 03/30/18 17:15 119 03/30/18 16:00 Venturi Mask 14.0 03/30/18 16:00 116 03/30/18 16:00 98.4 101 20 120/85 (97) 100 98.4 03/30/18 12:00 Venturi Mask 14.0 03/30/18 12:00 97.9 121 22 110/61 (77) 95 97.9 03/30/18 12:00 105 03/30/18 09:24 94 Nasal Cannula 4.0 36 03/30/18 09:24 Nasal Cannula 4.0 36 Intake and Output 03/30/18 03/31/18 19:00 07:00 Intake Total 1965 ml Output Total 250 ml 325 ml Balance -250 ml 1640 ml Intake Oral 840 ml IV Total 325 ml Blood Product 800 ml Output Urine Total 250 ml 325 ml Hemodialysis UF 0 ml Laboratory Tests 03/30/18 11:50: Sodium Level 130L, Potassium Level 6.5*H, Chloride Level 99, Carbon Dioxide Level 20L, Anion Gap 11, Blood Urea Nitrogen 98H, Creatinine 4.7H, Estimat Glomerular Filtration Rate 14.2, Glucose Level 147H, Calcium Level 8.1L, Random Vancomycin Level 9.1 03/30/18 15:35: Arterial Blood pH 7.380, Arterial Blood Partial Pressure CO2 32.3L, Arterial Blood Partial Pressure O2 76.8, Arterial Blood HCO3 18.8L, Arterial Blood Oxygen Saturation 92.4, Arterial Blood Base Excess -5.6, Elieser Test Positive 03/30/18 16:20: White Blood Count 18.4H, Red Blood Count 2.49L, Hemoglobin 6.9*L, Hematocrit 20.4L, Mean Corpuscular Volume 82, Mean Corpuscular Hemoglobin 27.8, Mean Corpuscular Hemoglobin Concent 33.8, Red Cell Distribution Width 13.8, Platelet Count 376, Mean Platelet Volume 5.7L, Neutrophils (%) (Auto) , Lymphocytes (%) ( Auto) , Monocytes (%) (Auto) , Eosinophils (%) (Auto) , Basophils (%) (Auto) , Differential Total Cells Counted 100, Neutrophils % (Manual) 76H, Lymphocytes % (Manual) 13L, Monocytes % (Manual) 4, Eosinophils % (Manual) 3, Basophils % ( Manual) 0, Band Neutrophils 4, Platelet Estimate Adequate, Platelet Morphology Normal, Polychromasia 1+, Hypochromasia 2+, Anisocytosis 2+, Prothrombin Time 29.4H, Prothromb Time International Ratio 3.0H 03/31/18 06:00: Sodium Level 133L, Potassium Level 5.0, Chloride Level 99, Carbon Dioxide Level 26, Anion Gap 8, Blood Urea Nitrogen 77H, Creatinine 3.8H, Estimat Glomerular Filtration Rate 18.1, Glucose Level 120H, Calcium Level 7.5L, White Blood Count 17.5H, Red Blood Count 2.78L, Hemoglobin 7.5L, Hematocrit 22.9L, Mean Corpuscular Volume 82, Mean Corpuscular Hemoglobin 27.1, Mean Corpuscular Hemoglobin Concent 32.9, Red Cell Distribution Width 13.9, Platelet Count 379, Mean Platelet Volume 5.9L, Neutrophils (%) (Auto) , Lymphocytes (%) (Auto) , Monocytes (%) (Auto) , Eosinophils (%) (Auto) , Basophils (%) (Auto) , Differential Total Cells Counted 100, Neutrophils % (Manual) 75, Lymphocytes % ( Manual) 17L, Monocytes % (Manual) 8, Eosinophils % (Manual) 0, Basophils % ( Manual) 0, Band Neutrophils 0, Platelet Estimate Adequate, Platelet Morphology Normal, Hypochromasia 1+ 03/31/18 08:40: Arterial Blood pH [Pending], Arterial Blood Partial Pressure CO2 [Pending], Arterial Blood Partial Pressure O2 [Pending], Arterial Blood HCO3 [Pending], Arterial Blood Oxygen Saturation [Pending], Arterial Blood Base Excess [Pending] , Elieser Test [Pending] Height (Feet): 5 Height (Inches): 11.00 Weight (Pounds): 222 General Appearance: WD/WN, no apparent distress EENT: PERRL/EOMI Neck: non-tender, normal alignment, supple Cardiovascular: normal peripheral pulses, normal rate Respiratory/Chest: chest wall non-tender, lungs clear Abdomen: normal bowel sounds, non tender, soft Edema: 2+ Arm (L), 2+ Arm (R), 2+ Leg (L), 2+ Leg (R), 2+ Pedal (L), 2+ Pedal ( R), 2+ Generalized Ho Villalpando M.D. Mar 31, 2018 08:56
[2018-03-31] MEDS ORDERED: Phytonadione 10 mg/mL 1ml amp SUBQ SCH (10:00)
--- NOTE | 2018-03-31 10:00 | General Progress Note ---
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 - Staph endocarditis with systemic emboli - Coagulopathy, presumed due to DIC - renal failure - poor prognosis Recommendations - po solids OK, with aspiration precautions - change PPI to qd po - transfuse PRN - monitor labs - abx - no plans for endoscopy Thank you Angelia Hendrickson MD Subjective Allergies: Coded Allergies: No Known Allergies (Unverified , 12/11/13) Objective Last 24 Hour Vital Signs Date Time Temp Pulse Resp B/P (MAP) Pulse Ox O2 Delivery O2 Flow Rate FiO2 03/31/18 07:10 99 Non-Rebreather 15.0 100 03/31/18 07:10 Non-Rebreather 15.0 100 03/31/18 07:00 119 21 129/88 (102) 95 03/31/18 06:00 117 29 116/85 (95) 96 03/31/18 05:00 113 29 116/73 (87) 100 03/31/18 04:00 119 03/31/18 04:00 98.6 112 25 114/80 (91) 100 98.6 03/31/18 04:00 Non-Rebreather 15.0 03/31/18 03:00 117 25 124/62 (82) 98 03/31/18 02:00 120 27 123/65 (84) 99 03/31/18 01:00 118 27 109/79 (89) 100 03/31/18 00:00 120 03/31/18 00:00 98.4 120 23 125/51 (75) 89 98.4 03/31/18 00:00 Non-Rebreather 15.0 03/30/18 23:45 120 27 110/61 (77) 98 03/30/18 23:30 119 30 103/60 (74) 100 03/30/18 23:15 120 26 104/62 (76) 99 03/30/18 23:00 121 25 110/73 (85) 99 03/30/18 22:51 Simple Mask 03/30/18 22:45 126 23 97/81 (86) 94 03/30/18 22:30 126 25 122/64 (83) 97 03/30/18 22:15 121 26 133/63 (86) 99 03/30/18 22:00 120 20 124/70 (88) 99 03/30/18 21:45 119 24 119/74 (89) 100 03/30/18 21:30 121 22 139/75 (96) 99 03/30/18 21:25 122 27 109/74 (86) 100 03/30/18 21:00 121 30 108/72 (84) 99 03/30/18 21:00 120 24 127/71 (89) 100 03/30/18 20:45 118 26 129/90 (103) 100 03/30/18 20:30 Simple Mask 03/30/18 20:00 Non-Rebreather 15.0 100 03/30/18 20:00 115 03/30/18 20:00 Non-Rebreather 15.0 03/30/18 20:00 98 Non-Rebreather 15.0 100 03/30/18 20:00 121 30 108/72 (84) 99 03/30/18 19:00 98.3 119 33 130/74 (92) 99 98.3 03/30/18 18:00 116 27 125/73 (90) 99 03/30/18 17:15 118 22 122/71 (88) 99 03/30/18 17:15 119 03/30/18 16:00 Venturi Mask 14.0 03/30/18 16:00 116 03/30/18 16:00 98.4 101 20 120/85 (97) 100 98.4 03/30/18 12:00 Venturi Mask 14.0 03/30/18 12:00 97.9 121 22 110/61 (77) 95 97.9 03/30/18 12:00 105 Intake and Output 03/30/18 03/31/18 19:00 07:00 Intake Total 1965 ml Output Total 250 ml 325 ml Balance -250 ml 1640 ml Intake Oral 840 ml IV Total 325 ml Blood Product 800 ml Output Urine Total 250 ml 325 ml Hemodialysis UF 0 ml Laboratory Tests 03/30/18 11:50: Sodium Level 130L, Potassium Level 6.5*H, Chloride Level 99, Carbon Dioxide Level 20L, Anion Gap 11, Blood Urea Nitrogen 98H, Creatinine 4.7H, Estimat Glomerular Filtration Rate 14.2, Glucose Level 147H, Calcium Level 8.1L, Random Vancomycin Level 9.1 03/30/18 15:35: Arterial Blood pH 7.380, Arterial Blood Partial Pressure CO2 32.3L, Arterial Blood Partial Pressure O2 76.8, Arterial Blood HCO3 18.8L, Arterial Blood Oxygen Saturation 92.4, Arterial Blood Base Excess -5.6, Elieser Test Positive 03/30/18 16:20: White Blood Count 18.4H, Red Blood Count 2.49L, Hemoglobin 6.9*L, Hematocrit 20.4L, Mean Corpuscular Volume 82, Mean Corpuscular Hemoglobin 27.8, Mean Corpuscular Hemoglobin Concent 33.8, Red Cell Distribution Width 13.8, Platelet Count 376, Mean Platelet Volume 5.7L, Neutrophils (%) (Auto) , Lymphocytes (%) ( Auto) , Monocytes (%) (Auto) , Eosinophils (%) (Auto) , Basophils (%) (Auto) , Differential Total Cells Counted 100, Neutrophils % (Manual) 76H, Lymphocytes % (Manual) 13L, Monocytes % (Manual) 4, Eosinophils % (Manual) 3, Basophils % ( Manual) 0, Band Neutrophils 4, Platelet Estimate Adequate, Platelet Morphology Normal, Polychromasia 1+, Hypochromasia 2+, Anisocytosis 2+, Prothrombin Time 29.4H, Prothromb Time International Ratio 3.0H 03/31/18 06:00: Sodium Level 133L, Potassium Level 5.0, Chloride Level 99, Carbon Dioxide Level 26, Anion Gap 8, Blood Urea Nitrogen 77H, Creatinine 3.8H, Estimat Glomerular Filtration Rate 18.1, Glucose Level 120H, Calcium Level 7.5L, White Blood Count 17.5H, Red Blood Count 2.78L, Hemoglobin 7.5L, Hematocrit 22.9L, Mean Corpuscular Volume 82, Mean Corpuscular Hemoglobin 27.1, Mean Corpuscular Hemoglobin Concent 32.9, Red Cell Distribution Width 13.9, Platelet Count 379, Mean Platelet Volume 5.9L, Neutrophils (%) (Auto) , Lymphocytes (%) (Auto) , Monocytes (%) (Auto) , Eosinophils (%) (Auto) , Basophils (%) (Auto) , Differential Total Cells Counted 100, Neutrophils % (Manual) 75, Lymphocytes % ( Manual) 17L, Monocytes % (Manual) 8, Eosinophils % (Manual) 0, Basophils % ( Manual) 0, Band Neutrophils 0, Platelet Estimate Adequate, Platelet Morphology Normal, Hypochromasia 1+ 03/31/18 08:40: Arterial Blood pH 7.436, Arterial Blood Partial Pressure CO2 32.3L, Arterial Blood Partial Pressure O2 108.2H, Arterial Blood HCO3 21.2L, Arterial Blood Oxygen Saturation 96.8, Arterial Blood Base Excess -2.4, Elieser Test Positive Height (Feet): 5 Height (Inches): 11.00 Weight (Pounds): 222 Angelia Hendrickson MD Mar 31, 2018 09:59
--- NOTE | 2018-03-31 10:14 | Infectious Diseases Prog Note ---
Assessment/Plan Assessment/Plan A 1. staph aureus sepsis 2. staph aureus UTI 3. 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 leucocytosis improving 5. renal failure started on HD 6. substance abuse 7. vasculitic rash 8. Hyponatremia 9. anemia 10. Hepatitis C P 1. continue Ancef 2. transfer pending 3. f/u labs Subjective Respiratory: Reports: other - coughing blood Cardiovascular: Reports: chest pain Genitourinary: Reports: no symptoms Neurologic: Reports: other - drowsy Skin: Reports: rash Allergies: Coded Allergies: No Known Allergies (Unverified , 12/11/13) Objective Vital Signs Last 24 Hour Vital Signs Date Time Temp Pulse Resp B/P (MAP) Pulse Ox O2 Delivery O2 Flow Rate FiO2 03/31/18 07:10 99 Non-Rebreather 15.0 100 03/31/18 07:10 Non-Rebreather 15.0 100 03/31/18 07:00 119 21 129/88 (102) 95 03/31/18 06:00 117 29 116/85 (95) 96 03/31/18 05:00 113 29 116/73 (87) 100 03/31/18 04:00 119 03/31/18 04:00 98.6 112 25 114/80 (91) 100 98.6 03/31/18 04:00 Non-Rebreather 15.0 03/31/18 03:00 117 25 124/62 (82) 98 03/31/18 02:00 120 27 123/65 (84) 99 03/31/18 01:00 118 27 109/79 (89) 100 03/31/18 00:00 120 03/31/18 00:00 98.4 120 23 125/51 (75) 89 98.4 03/31/18 00:00 Non-Rebreather 15.0 03/30/18 23:45 120 27 110/61 (77) 98 03/30/18 23:30 119 30 103/60 (74) 100 03/30/18 23:15 120 26 104/62 (76) 99 03/30/18 23:00 121 25 110/73 (85) 99 03/30/18 22:51 Simple Mask 03/30/18 22:45 126 23 97/81 (86) 94 03/30/18 22:30 126 25 122/64 (83) 97 03/30/18 22:15 121 26 133/63 (86) 99 03/30/18 22:00 120 20 124/70 (88) 99 03/30/18 21:45 119 24 119/74 (89) 100 03/30/18 21:30 121 22 139/75 (96) 99 03/30/18 21:25 122 27 109/74 (86) 100 03/30/18 21:00 121 30 108/72 (84) 99 03/30/18 21:00 120 24 127/71 (89) 100 03/30/18 20:45 118 26 129/90 (103) 100 03/30/18 20:30 Simple Mask 03/30/18 20:00 Non-Rebreather 15.0 100 03/30/18 20:00 115 03/30/18 20:00 Non-Rebreather 15.0 03/30/18 20:00 98 Non-Rebreather 15.0 100 03/30/18 20:00 121 30 108/72 (84) 99 03/30/18 19:00 98.3 119 33 130/74 (92) 99 98.3 03/30/18 18:00 116 27 125/73 (90) 99 03/30/18 17:15 118 22 122/71 (88) 99 03/30/18 17:15 119 03/30/18 16:00 Venturi Mask 14.0 03/30/18 16:00 116 03/30/18 16:00 98.4 101 20 120/85 (97) 100 98.4 03/30/18 12:00 Venturi Mask 14.0 03/30/18 12:00 97.9 121 22 110/61 (77) 95 97.9 03/30/18 12:00 105 Height (Feet): 5 Height (Inches): 11.00 Weight (Pounds): 222 HEENT: mucous membranes moist Respiratory/Chest: lungs clear Cardiovascular: tachycardia, other - RIJ HD line Abdomen: soft, non tender Extremities: other - mild edema Skin: rash, other - more in upper & lower extremities Neurologic/Psychiatric: alert, responsive Laboratory Tests Test 03/30/18 11:50 03/30/18 15:35 03/30/18 16:20 03/31/18 06:00 Sodium Level 130 MMOL/L (136-145) L 133 MMOL/L (136-145) L Potassium Level 6.5 MMOL/L (3.5-5.1) *H 5.0 MMOL/L (3.5-5.1) Chloride Level 99 MMOL/L (98-107) 99 MMOL/L (98-107) Carbon Dioxide Level 20 MMOL/L (21-32) L 26 MMOL/L (21-32) Anion Gap 11 mmol/L (5-15) 8 mmol/L (5-15) Blood Urea Nitrogen 98 mg/dL (7-18) H 77 mg/dL (7-18) H Creatinine 4.7 MG/DL (0.55-1.30) H 3.8 MG/DL (0.55-1.30) H Estimat Glomerular Filtration Rate 14.2 mL/min (>60) 18.1 mL/min (>60) Glucose Level 147 MG/DL (74-106) H 120 MG/DL (74-106) H Calcium Level 8.1 MG/DL (8.5-10.1) L 7.5 MG/DL (8.5-10.1) L Random Vancomycin Level 9.1 ug/mL Arterial Blood pH 7.380 (7.350-7.450) Arterial Blood Partial Pressure CO2 32.3 mmHg (35.0-45.0) L Arterial Blood Partial Pressure O2 76.8 mmHg (75.0-100.0) Arterial Blood HCO3 18.8 mmol/L (22.0-26.0) L Arterial Blood Oxygen Saturation 92.4 % (92.0-98.0) Arterial Blood Base Excess -5.6 Elieser Test Positive White Blood Count 18.4 K/UL (4.8-10.8) H 17.5 K/UL (4.8-10.8) H Red Blood Count 2.49 M/UL (4.70-6.10) L 2.78 M/UL (4.70-6.10) L Hemoglobin 6.9 G/DL (14.2-18.0) *L 7.5 G/DL (14.2-18.0) L Hematocrit 20.4 % (42.0-52.0) L 22.9 % (42.0-52.0) L Mean Corpuscular Volume 82 FL (80-99) 82 FL (80-99) Mean Corpuscular Hemoglobin 27.8 PG (27.0-31.0) 27.1 PG (27.0-31.0) Mean Corpuscular Hemoglobin Concent 33.8 G/DL (32.0-36.0) 32.9 G/DL (32.0-36.0) Red Cell Distribution Width 13.8 % (11.6-14.8) 13.9 % (11.6-14.8) Platelet Count 376 K/UL (150-450) 379 K/UL (150-450) Mean Platelet Volume 5.7 FL (6.5-10.1) L 5.9 FL (6.5-10.1) L Neutrophils (%) (Auto) % (45.0-75.0) % (45.0-75.0) Lymphocytes (%) (Auto) % (20.0-45.0) % (20.0-45.0) Monocytes (%) (Auto) % (1.0-10.0) % (1.0-10.0) Eosinophils (%) (Auto) % (0.0-3.0) % (0.0-3.0) Basophils (%) (Auto) % (0.0-2.0) % (0.0-2.0) Differential Total Cells Counted 100 100 Neutrophils % (Manual) 76 % (45-75) H 75 % (45-75) Lymphocytes % (Manual) 13 % (20-45) L 17 % (20-45) L Monocytes % (Manual) 4 % (1-10) 8 % (1-10) Eosinophils % (Manual) 3 % (0-3) 0 % (0-3) Basophils % (Manual) 0 % (0-2) 0 % (0-2) Band Neutrophils 4 % (0-8) 0 % (0-8) Platelet Estimate Adequate Adequate Platelet Morphology Normal Normal Polychromasia 1+ Hypochromasia 2+ 1+ Anisocytosis 2+ Prothrombin Time 29.4 SEC (9.30-11.50) H Prothromb Time International Ratio 3.0 (0.9-1.1) H Test 03/31/18 08:40 Arterial Blood pH 7.436 (7.350-7.450) Arterial Blood Partial Pressure CO2 32.3 mmHg (35.0-45.0) L Arterial Blood Partial Pressure O2 108.2 mmHg (75.0-100.0) H Arterial Blood HCO3 21.2 mmol/L (22.0-26.0) L Arterial Blood Oxygen Saturation 96.8 % (92.0-98.0) Arterial Blood Base Excess -2.4 Elieser Test Positive Current Medications Medications (Trade) Dose Ordered Sig/Zach Route PRN Reason Start Time Stop Time Status Last Admin Dose Admin Acetaminophen (Tylenol) 650 mg Q4H PRN ORAL Mild Pain/Temp > 100.5 03/30/18 19:00 04/21/18 18:59 Al Hydroxide/Mg Hydroxide (Mylanta) 30 ml Q4H PRN ORAL Nausea & Vomiting 03/30/18 21:00 04/22/18 16:59 Bisacodyl (Dulcolax) 10 mg DAILYPRN PRN ORAL Constipation 03/30/18 19:00 04/27/18 18:59 Cefazolin Sodium 1 gm/Dextrose 55 ml @ 110 mls/hr Q12HR IVP 03/30/18 21:00 04/06/18 20:59 03/31/18 08:38 Chlorhexidine Gluconate (Ayala-Hex 2%) 1 applic DAILY@2000 TOPIC 03/30/18 20:00 04/22/18 19:59 03/30/18 20:39 Lorazepam (Ativan 2mg/ml 1ml) 1 mg Q4H PRN IV For Anxiety 03/30/18 19:00 04/06/18 18:59 03/31/18 00:48 Morphine Sulfate (Morphine Sulfate) 2 mg Q3H PRN IVP mod-severe pain (4-10) 03/30/18 18:15 04/06/18 18:14 Ondansetron HCl (Zofran) 4 mg Q6H PRN IVP Nausea & Vomiting 03/30/18 19:00 04/22/18 18:59 Pantoprazole 80 mg/Sodium Chloride 250 ml @ 25 mls/hr Q10H IV 03/31/18 03:00 04/30/18 02:59 03/31/18 04:17 Phytonadione (Vitamin K) 10 mg DAILY SUBQ 03/31/18 10:00 04/03/18 08:59 UNV Zolpidem Tartrate (Ambien) 5 mg HSPRN PRN ORAL Insomnia 03/31/18 00:00 04/07/18 00:00 03/30/18 23:57 Rakesh Michaud MD Mar 31, 2018 10:14
[2018-03-31] MEDS ORDERED: Vitamin K 10mg in D5W 55ml IVPB SCH (11:30)
[2018-03-31 14:22] LABS: BASOPHILS % (AUTO) 0.5 % (0.0-2.0); EOSINOPHILS % (AUTO) 0.9 % (0.0-3.0); HEMATOCRIT 24.4 % (42.0-52.0); LYMPHOCYTES % (AUTO) 13.8 % (20.0-45.0); MEAN CORPUSCULAR VOLUME 83 FL (80-99); MONOCYTES % (AUTO) 4.7 % (1.0-10.0); NEUTROPHILS % (AUTO) 80.1 % (45.0-75.0); PLATELET COUNT 373 K/UL (150-450); RED BLOOD COUNT 2.94 M/UL (4.70-6.10); RED CELL DISTRIBUTION WIDTH 13.7 % (11.6-14.8); WHITE BLOOD COUNT 16.4 K/UL (4.8-10.8)
[2018-03-31] MEDS ORDERED: NS 500ML ONE (16:05)
[2018-03-31] MEDS ORDERED: NS 275ml ONE (16:05)
[2018-03-31] MEDS ORDERED: D5 1/2NS 1000ml IV ONE (16:05)
[2018-03-31] MEDS ORDERED: Tubing IV Secondary IV ONE (16:05)
[2018-03-31] MEDS ORDERED: Tubing IV Blood Pump IV ONE (16:05)
[2018-03-31] MEDS: Tylenol #3 tab (300mg/30mg) ORAL PRN (16:45)
--- NOTE | 2018-03-31 18:21 | Pulmonology Progress Note ---
Assessment/Plan Assessment/Plan Assessment/Plan 1. CT consistent with septic emboli. 2. Heroin abuse. 3. Elevated liver enzymes 4. Significantly reduced albumin. 5. Severe protein-calorie malnutrition 6. Lower extremity edema. negative venous 7. Hypoxemia. 8. Tachycardia. 9. Leukocytosis. 10. Sepsis. 11.endocarditis 12. coagulopathy 13. GI feels not GI bleed - rather hemoptysis PLAN CXR, CT Chest May need bronchoscopy if hemoptysis worsens monitor wbc continue antibiotics d/w cards guarded GI Dr Hendrickson TF PRN, keep HB >7, check INT Liquid diet per GI IV Protonix Subjective Allergies: Coded Allergies: No Known Allergies (Unverified , 12/11/13) Subjective bcx positive CT noted cards appreciated +endocarditis Objective Last 24 Hour Vital Signs Date Time Temp Pulse Resp B/P (MAP) Pulse Ox O2 Delivery O2 Flow Rate FiO2 03/26/18 04:00 98.1 104 20 126/77 (93) 99 98.1 03/26/18 04:00 110 03/26/18 00:00 99.0 102 24 125/73 (90) 95 99.0 03/26/18 00:00 103 03/25/18 20:00 99.1 102 24 152/89 (110) 98 99.1 03/25/18 20:00 110 03/25/18 19:08 Venturi Mask 15.0 55 03/25/18 19:08 96 Venturi Mask 15.0 55 03/25/18 18:47 98.3 03/25/18 16:00 105 03/25/18 16:00 98.3 109 26 145/85 (105) 98 98.3 03/25/18 15:57 98.3 03/25/18 15:27 98.7 03/25/18 14:45 100 28 122/82 100 Venturi Mask 55 03/25/18 14:30 98.7 102 25 126/84 100 Venturi Mask 55 98.7 03/25/18 14:15 98 27 133/76 100 Venturi Mask 55 03/25/18 14:09 210.4 97 29 100 03/25/18 14:05 210.4 77 28 100 03/25/18 14:00 102 29 128/84 100 Venturi Mask 55 03/25/18 13:50 100 30 127/79 100 Venturi Mask 55 03/25/18 13:44 99 100 28 125/77 100 Venturi Mask 55 99.0 03/25/18 12:00 Venturi Mask 15.0 03/25/18 12:00 98.5 24 138/85 (102) 99 98.5 03/25/18 12:00 101 03/25/18 11:10 98.2 03/25/18 09:00 Venturi Mask 15.0 03/25/18 08:05 98.4 03/25/18 08:00 98.6 103 24 133/78 (96) 99 98.6 03/25/18 08:00 Venturi Mask 15.0 03/25/18 08:00 102 Intake and Output 03/25/18 03/26/18 19:00 07:00 Intake Total 3150 ml 1351.800 ml Output Total 780 ml Balance 2370 ml 1351.800 ml Intake Oral 800 ml IV Total 2350 ml 1351.800 ml Output Urine Total 780 ml Laboratory Tests 03/25/18 08:50: Arterial Blood pH 7.496H, Arterial Blood Partial Pressure CO2 29.4L, Arterial Blood Partial Pressure O2 81.9, Arterial Blood HCO3 22.2, Arterial Blood Oxygen Saturation 95.0, Arterial Blood Base Excess -0.6, Elieser Test Positive 03/25/18 16:45: Random Vancomycin Level 17.2 03/26/18 03:00: Random Vancomycin Level 28.1 Height (Feet): 5 Height (Inches): 11.00 Weight (Pounds): 208 Objective WDWN mild sob reduced breath sounds bilaterally without rhonchi or wheeze [id number] tachy without MRG NABS nontender no HSM no CC noted edema nonfocal Subjective Allergies: Coded Allergies: No Known Allergies (Unverified , 12/11/13) Objective Last 24 Hour Vital Signs Date Time Temp Pulse Resp B/P (MAP) Pulse Ox O2 Delivery O2 Flow Rate FiO2 03/31/18 17:00 97.8 102 25 129/83 (98) 100 97.8 03/31/18 16:20 Non-Rebreather 15.0 100 03/31/18 16:00 102 24 139/84 (102) 100 03/31/18 16:00 104 03/31/18 15:00 106 24 151/86 (107) 100 03/31/18 14:00 112 25 143/90 (107) 98 03/31/18 13:58 98.7 03/31/18 13:00 110 21 132/82 (99) 97 03/31/18 12:59 98.7 03/31/18 12:00 110 21 132/82 (99) 97 03/31/18 12:00 111 03/31/18 12:00 Non-Rebreather 15.0 03/31/18 11:00 98.7 109 21 135/80 (98) 97 98.7 03/31/18 10:00 110 21 136/81 (99) 97 03/31/18 09:00 111 21 129/88 (102) 97 03/31/18 08:00 109 03/31/18 08:00 98.3 114 21 137/82 (100) 100 98.3 03/31/18 08:00 Non-Rebreather 15.0 03/31/18 07:10 99 Non-Rebreather 15.0 100 03/31/18 07:10 Non-Rebreather 15.0 100 03/31/18 07:00 119 21 129/88 (102) 95 03/31/18 06:00 117 29 116/85 (95) 96 03/31/18 05:00 113 29 116/73 (87) 100 03/31/18 04:00 119 03/31/18 04:00 98.6 112 25 114/80 (91) 100 98.6 03/31/18 04:00 Non-Rebreather 15.0 03/31/18 03:00 117 25 124/62 (82) 98 03/31/18 02:00 120 27 123/65 (84) 99 03/31/18 01:00 118 27 109/79 (89) 100 03/31/18 00:00 120 03/31/18 00:00 98.4 120 23 125/51 (75) 89 98.4 03/31/18 00:00 Non-Rebreather 15.0 03/30/18 23:45 120 27 110/61 (77) 98 03/30/18 23:30 119 30 103/60 (74) 100 03/30/18 23:15 120 26 104/62 (76) 99 03/30/18 23:00 121 25 110/73 (85) 99 03/30/18 22:51 Simple Mask 03/30/18 22:45 126 23 97/81 (86) 94 03/30/18 22:30 126 25 122/64 (83) 97 03/30/18 22:15 121 26 133/63 (86) 99 03/30/18 22:00 120 20 124/70 (88) 99 03/30/18 21:45 119 24 119/74 (89) 100 03/30/18 21:30 121 22 139/75 (96) 99 03/30/18 21:25 122 27 109/74 (86) 100 03/30/18 21:00 121 30 108/72 (84) 99 03/30/18 21:00 120 24 127/71 (89) 100 03/30/18 20:45 118 26 129/90 (103) 100 03/30/18 20:30 Simple Mask 03/30/18 20:00 Non-Rebreather 15.0 100 03/30/18 20:00 115 03/30/18 20:00 Non-Rebreather 15.0 03/30/18 20:00 98 Non-Rebreather 15.0 100 03/30/18 20:00 121 30 108/72 (84) 99 03/30/18 19:00 98.3 119 33 130/74 (92) 99 98.3 Intake and Output 03/30/18 03/31/18 19:00 07:00 Intake Total 1965 ml Output Total 250 ml 325 ml Balance -250 ml 1640 ml Intake Oral 840 ml IV Total 325 ml Blood Product 800 ml Output Urine Total 250 ml 325 ml Hemodialysis UF 0 ml Laboratory Tests 03/31/18 06:00: White Blood Count 17.5H, Red Blood Count 2.78L, Hemoglobin 7.5L, Hematocrit 22.9L, Mean Corpuscular Volume 82, Mean Corpuscular Hemoglobin 27.1, Mean Corpuscular Hemoglobin Concent 32.9, Red Cell Distribution Width 13.9, Platelet Count 379, Mean Platelet Volume 5.9L, Neutrophils (%) (Auto) , Lymphocytes (%) ( Auto) , Monocytes (%) (Auto) , Eosinophils (%) (Auto) , Basophils (%) (Auto) , Differential Total Cells Counted 100, Neutrophils % (Manual) 75, Lymphocytes % ( Manual) 17L, Monocytes % (Manual) 8, Eosinophils % (Manual) 0, Basophils % ( Manual) 0, Band Neutrophils 0, Platelet Estimate Adequate, Platelet Morphology Normal, Hypochromasia 1+, Sodium Level 133L, Potassium Level 5.0, Chloride Level 99, Carbon Dioxide Level 26, Anion Gap 8, Blood Urea Nitrogen 77H, Creatinine 3.8H, Estimat Glomerular Filtration Rate 18.1, Glucose Level 120H, Calcium Level 7.5L 03/31/18 08:40: Arterial Blood pH 7.436, Arterial Blood Partial Pressure CO2 32.3L, Arterial Blood Partial Pressure O2 108.2H, Arterial Blood HCO3 21.2L, Arterial Blood Oxygen Saturation 96.8, Arterial Blood Base Excess -2.4, Elieser Test Positive 03/31/18 13:28: White Blood Count 16.4H, Red Blood Count 2.94L, Hemoglobin 8.0L, Hematocrit 24.4L, Mean Corpuscular Volume 83, Mean Corpuscular Hemoglobin 27.1, Mean Corpuscular Hemoglobin Concent 32.6, Red Cell Distribution Width 13.7, Platelet Count 373, Mean Platelet Volume 5.6L, Neutrophils (%) (Auto) 80.1H, Lymphocytes (%) (Auto) 13.8L, Monocytes (%) (Auto) 4.7, Eosinophils (%) (Auto) 0.9, Basophils (%) (Auto) 0.5 Current Medications Medications (Trade) Dose Ordered Sig/Zach Route PRN Reason Start Time Stop Time Status Last Admin Dose Admin Acetaminophen (Tylenol) 650 mg Q4H PRN ORAL Mild Pain/Temp > 100.5 03/30/18 19:00 04/21/18 18:59 03/31/18 12:59 Acetaminophen/ Codeine Phosphate (Tylenol #3) 1 tab Q6H PRN ORAL For SEVERE PAIN 03/31/18 16:37 04/07/18 16:36 03/31/18 16:45 Al Hydroxide/Mg Hydroxide (Mylanta) 30 ml Q4H PRN ORAL Nausea & Vomiting 03/30/18 21:00 04/22/18 16:59 Bisacodyl (Dulcolax) 10 mg DAILYPRN PRN ORAL Constipation 03/30/18 19:00 04/27/18 18:59 Cefazolin Sodium 1 gm/Dextrose 55 ml @ 110 mls/hr Q12HR IVP 03/30/18 21:00 04/06/18 20:59 03/31/18 08:38 Chlorhexidine Gluconate (Ayala-Hex 2%) 1 applic DAILY@2000 TOPIC 03/30/18 20:00 04/22/18 19:59 03/30/18 20:39 Lorazepam (Ativan 2mg/ml 1ml) 1 mg Q4H PRN IV For Anxiety 03/30/18 19:00 04/06/18 18:59 03/31/18 00:48 Ondansetron HCl (Zofran) 4 mg Q6H PRN IVP Nausea & Vomiting 03/30/18 19:00 04/22/18 18:59 Pantoprazole (Protonix) 40 mg DAILY ORAL 04/01/18 09:00 05/01/18 08:59 Phytonadione (Vitamin K) 10 mg DAILY SUBQ 04/01/18 09:00 04/02/18 09:01 Zolpidem Tartrate (Ambien) 5 mg HSPRN PRN ORAL Insomnia 03/31/18 00:00 04/07/18 00:00 03/30/18 23:57 Omkar Cedeno MD Mar 31, 2018 18:21
[2018-03-31 18:29] LABS: BASOPHILS % (AUTO) 0.8 % (0.0-2.0); EOSINOPHILS % (AUTO) 0.9 % (0.0-3.0); HEMATOCRIT 25.8 % (42.0-52.0); HEMOGLOBIN 8.9 G/DL (14.2-18.0); LYMPHOCYTES % (AUTO) 17.1 % (20.0-45.0); MEAN CORPUSCULAR VOLUME 81 FL (80-99); MONOCYTES % (AUTO) 4.8 % (1.0-10.0); NEUTROPHILS % (AUTO) 76.4 % (45.0-75.0); PLATELET COUNT 391 K/UL (150-450); RED BLOOD COUNT 3.18 M/UL (4.70-6.10); RED CELL DISTRIBUTION WIDTH 13.9 % (11.6-14.8); WHITE BLOOD COUNT 15.2 K/UL (4.8-10.8)
[2018-03-31] MEDS: Dyna-Hex 2% Top Sol 2oz TOPIC SCH (20:32)
--- NOTE | 2018-03-31 23:50 | Cardiology Progress Note ---
Assessment/Plan Assessment/Plan 1. 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 Requires TV repair in view of embolization and presence of immunologic phenomena , Awaiting transfer to a facility that provides CT surgery. Refused by [facility]. Meanwhile continue IV ABx per ID recommendations. Normal LVEF. 2. Sinus tachycardia due to sepsis/SIRS. 3. Hypoxemic respiratory failure. 4. Systemic inflammatory response disease/septic embolization 5. Proteinuria with hypoalbuminemia. 6. Hemoptysis/pulmonary hemorrhage, ? mycotic aneurysm. May require bronchoscopy. Subjective Subjective Sinus tachycardia at 107. Objective Last 24 Hour Vital Signs Date Time Temp Pulse Resp B/P (MAP) Pulse Ox O2 Delivery O2 Flow Rate FiO2 03/31/18 23:00 110 24 143/83 (103) 100 03/31/18 22:00 107 24 145/94 (111) 100 03/31/18 21:00 107 24 133/90 (104) 100 03/31/18 20:00 Non-Rebreather 15.0 100 03/31/18 20:00 107 24 139/74 (95) 100 03/31/18 20:00 Non-Rebreather 15.0 03/31/18 20:00 104 03/31/18 20:00 99 Non-Rebreather 15.0 100 03/31/18 19:37 Simple Mask 15.0 100 03/31/18 19:00 97.8 111 24 106/66 (79) 100 97.8 03/31/18 18:00 109 24 138/86 (103) 100 03/31/18 17:44 97.8 03/31/18 17:00 97.8 102 25 129/83 (98) 100 97.8 03/31/18 16:20 Non-Rebreather 15.0 100 03/31/18 16:00 102 24 139/84 (102) 100 03/31/18 16:00 104 03/31/18 16:00 Non-Rebreather 15.0 03/31/18 15:00 106 24 151/86 (107) 100 03/31/18 14:00 112 25 143/90 (107) 98 03/31/18 13:58 98.7 03/31/18 13:00 110 21 132/82 (99) 97 03/31/18 12:59 98.7 03/31/18 12:00 110 21 132/82 (99) 97 03/31/18 12:00 111 03/31/18 12:00 Non-Rebreather 15.0 03/31/18 11:00 98.7 109 21 135/80 (98) 97 98.7 03/31/18 10:00 110 21 136/81 (99) 97 03/31/18 09:00 111 21 129/88 (102) 97 03/31/18 08:00 109 03/31/18 08:00 98.3 114 21 137/82 (100) 100 98.3 03/31/18 08:00 Non-Rebreather 15.0 03/31/18 07:10 99 Non-Rebreather 15.0 100 03/31/18 07:10 Non-Rebreather 15.0 100 03/31/18 07:00 119 21 129/88 (102) 95 03/31/18 06:00 117 29 116/85 (95) 96 03/31/18 05:00 113 29 116/73 (87) 100 03/31/18 04:00 119 03/31/18 04:00 98.6 112 25 114/80 (91) 100 98.6 03/31/18 04:00 Non-Rebreather 15.0 03/31/18 03:00 117 25 124/62 (82) 98 03/31/18 02:00 120 27 123/65 (84) 99 03/31/18 01:00 118 27 109/79 (89) 100 03/31/18 00:00 120 03/31/18 00:00 98.4 120 23 125/51 (75) 89 98.4 03/31/18 00:00 Non-Rebreather 15.0 Intake and Output 03/30/18 03/31/18 19:00 07:00 Intake Total 1965 ml Output Total 250 ml 325 ml Balance -250 ml 1640 ml Intake Oral 840 ml IV Total 325 ml Blood Product 800 ml Output Urine Total 250 ml 325 ml Hemodialysis UF 0 ml 2D Echo: LVEF 55%, severe TR with TV vegetation, RVSP 36 mmHg Laboratory Tests Test 03/31/18 06:00 03/31/18 08:40 03/31/18 13:28 03/31/18 18:00 White Blood Count 17.5 K/UL (4.8-10.8) H 16.4 K/UL (4.8-10.8) H 15.2 K/UL (4.8-10.8) H Red Blood Count 2.78 M/UL (4.70-6.10) L 2.94 M/UL (4.70-6.10) L 3.18 M/UL (4.70-6.10) L Hemoglobin 7.5 G/DL (14.2-18.0) L 8.0 G/DL (14.2-18.0) L 8.9 G/DL (14.2-18.0) L Hematocrit 22.9 % (42.0-52.0) L 24.4 % (42.0-52.0) L 25.8 % (42.0-52.0) L Mean Corpuscular Volume 82 FL (80-99) 83 FL (80-99) 81 FL (80-99) Mean Corpuscular Hemoglobin 27.1 PG (27.0-31.0) 27.1 PG (27.0-31.0) 28.1 PG (27.0-31.0) Mean Corpuscular Hemoglobin Concent 32.9 G/DL (32.0-36.0) 32.6 G/DL (32.0-36.0) 34.7 G/DL (32.0-36.0) Red Cell Distribution Width 13.9 % (11.6-14.8) 13.7 % (11.6-14.8) 13.9 % (11.6-14.8) Platelet Count 379 K/UL (150-450) 373 K/UL (150-450) 391 K/UL (150-450) Mean Platelet Volume 5.9 FL (6.5-10.1) L 5.6 FL (6.5-10.1) L 5.3 FL (6.5-10.1) L Neutrophils (%) (Auto) % (45.0-75.0) 80.1 % (45.0-75.0) H 76.4 % (45.0-75.0) H Lymphocytes (%) (Auto) % (20.0-45.0) 13.8 % (20.0-45.0) L 17.1 % (20.0-45.0) L Monocytes (%) (Auto) % (1.0-10.0) 4.7 % (1.0-10.0) 4.8 % (1.0-10.0) Eosinophils (%) (Auto) % (0.0-3.0) 0.9 % (0.0-3.0) 0.9 % (0.0-3.0) Basophils (%) (Auto) % (0.0-2.0) 0.5 % (0.0-2.0) 0.8 % (0.0-2.0) Differential Total Cells Counted 100 Neutrophils % (Manual) 75 % (45-75) Lymphocytes % (Manual) 17 % (20-45) L Monocytes % (Manual) 8 % (1-10) Eosinophils % (Manual) 0 % (0-3) Basophils % (Manual) 0 % (0-2) Band Neutrophils 0 % (0-8) Platelet Estimate Adequate Platelet Morphology Normal Hypochromasia 1+ Sodium Level 133 MMOL/L (136-145) L Potassium Level 5.0 MMOL/L (3.5-5.1) Chloride Level 99 MMOL/L (98-107) Carbon Dioxide Level 26 MMOL/L (21-32) Anion Gap 8 mmol/L (5-15) Blood Urea Nitrogen 77 mg/dL (7-18) H Creatinine 3.8 MG/DL (0.55-1.30) H Estimat Glomerular Filtration Rate 18.1 mL/min (>60) Glucose Level 120 MG/DL (74-106) H Calcium Level 7.5 MG/DL (8.5-10.1) L Arterial Blood pH 7.436 (7.350-7.450) Arterial Blood Partial Pressure CO2 32.3 mmHg (35.0-45.0) L Arterial Blood Partial Pressure O2 108.2 mmHg (75.0-100.0) H Arterial Blood HCO3 21.2 mmol/L (22.0-26.0) L Arterial Blood Oxygen Saturation 96.8 % (92.0-98.0) Arterial Blood Base Excess -2.4 Elieser Test Positive Objective HEENT: Atraumatic and normocephalic. Anicteric. Conjunctival pallor is present. Pupils are equal, round, and reactive to light and accommodation. Extraocular muscles are intact. NECK: JVP is less than 5 cm. No carotid bruits. Carotid upstrokes 2+ bilaterally. CARDIOVASCULAR: Normal S1, S2. Regular rate and rhythm. Tachycardic. No murmurs, gallops, or rubs. PMI is at fourth intercostal space in the midclavicular line. LUNGS: Bilateral crackles. ABDOMEN: Soft, nontender, and nondistended. No hepatosplenomegaly. Positive bowel sounds. EXTREMITIES: Bilateral lower extremity edema, patches of nonblanching erythematous rash, now painful to palpation. Alvarado Lee MD Mar 31, 2018 23:50
[2018-04-01] VITALS (23 sets, daily range): BP systolic 105–151; BP diastolic 48–97
[2018-04-01 05:27] LABS: BASOPHILS % (AUTO) 0.6 % (0.0-2.0); EOSINOPHILS % (AUTO) 0.8 % (0.0-3.0); HEMATOCRIT 24.8 % (42.0-52.0); HEMOGLOBIN 8.3 G/DL (14.2-18.0); LYMPHOCYTES % (AUTO) 14.6 % (20.0-45.0); MEAN CORPUSCULAR VOLUME 82 FL (80-99); MONOCYTES % (AUTO) 5.2 % (1.0-10.0); NEUTROPHILS % (AUTO) 78.9 % (45.0-75.0); PLATELET COUNT 384 K/UL (150-450); RED BLOOD COUNT 3.01 M/UL (4.70-6.10); RED CELL DISTRIBUTION WIDTH 13.9 % (11.6-14.8); WHITE BLOOD COUNT 15.9 K/UL (4.8-10.8)
[2018-04-01 05:42] LABS: ANION GAP 7 mmol/L (5-15); BLOOD UREA NITROGEN 66 mg/dL (7-18); CALCIUM 7.7 MG/DL (8.5-10.1); CARBON DIOXIDE 28 MMOL/L (21-32); CHLORIDE 97 MMOL/L (98-107); CREATININE 3.2 MG/DL (0.55-1.30); POTASSIUM 4.3 MMOL/L (3.5-5.1); SODIUM 132 MMOL/L (136-145)
[2018-04-01 05:44] LABS: INR 1.1 (0.9-1.1)
--- NOTE | 2018-04-01 07:35 | General Progress Note ---
Assessment/Plan Assessment/Plan 1. CT consistent with septic emboli. 2. Heroin abuse. 3. Elevated liver enzymes 4. Significantly reduced albumin. 5. Severe protein-calorie malnutrition 6. Lower extremity edema. negative venous 7. Hypoxemia. 8. Tachycardia. 9. Leukocytosis. 10. Sepsis. 11.endocarditis 12. coagulopathy 13. hemoptysis PLAN needs emergent transfer for cardiac surgery IV antibiotics obtain pt and ptt d/w cards guarded monitor imaging gi and ID noted case management involved Subjective Allergies: Coded Allergies: No Known Allergies (Unverified , 12/11/13) Subjective events noted in ICU nursing notes reviewed Objective Last 24 Hour Vital Signs Date Time Temp Pulse Resp B/P (MAP) Pulse Ox O2 Delivery O2 Flow Rate FiO2 04/01/18 06:07 103 26 151/86 (107) 100 04/01/18 05:00 102 26 146/84 (104) 100 04/01/18 04:00 98.0 105 28 146/93 (110) 100 98.0 04/01/18 04:00 Venturi Mask 10.0 04/01/18 04:00 102 04/01/18 03:00 112 25 126/72 (90) 98 04/01/18 02:00 110 24 126/72 (90) 97 04/01/18 01:00 110 24 128/48 (74) 95 04/01/18 00:00 Non-Rebreather 15.0 04/01/18 00:00 98.4 108 18 143/83 (103) 98 98.4 03/31/18 23:00 110 24 143/83 (103) 100 03/31/18 22:00 107 24 145/94 (111) 100 03/31/18 21:00 107 24 133/90 (104) 100 03/31/18 20:00 Non-Rebreather 15.0 100 03/31/18 20:00 107 24 139/74 (95) 100 03/31/18 20:00 Non-Rebreather 15.0 03/31/18 20:00 104 03/31/18 20:00 99 Non-Rebreather 15.0 100 03/31/18 19:37 Simple Mask 15.0 100 03/31/18 19:00 97.8 111 24 106/66 (79) 100 97.8 03/31/18 18:00 109 24 138/86 (103) 100 7/29/18 17:44 97.8 03/31/18 17:00 97.8 102 25 129/83 (98) 100 97.8 03/31/18 16:20 Non-Rebreather 15.0 100 03/31/18 16:00 102 24 139/84 (102) 100 03/31/18 16:00 104 03/31/18 16:00 Non-Rebreather 15.0 03/31/18 15:00 106 24 151/86 (107) 100 03/31/18 14:00 112 25 143/90 (107) 98 03/31/18 13:58 98.7 03/31/18 13:00 110 21 132/82 (99) 97 03/31/18 12:59 98.7 03/31/18 12:00 110 21 132/82 (99) 97 03/31/18 12:00 111 03/31/18 12:00 Non-Rebreather 15.0 03/31/18 11:00 98.7 109 21 135/80 (98) 97 98.7 03/31/18 10:00 110 21 136/81 (99) 97 03/31/18 09:00 111 21 129/88 (102) 97 03/31/18 08:00 109 03/31/18 08:00 98.3 114 21 137/82 (100) 100 98.3 03/31/18 08:00 Non-Rebreather 15.0 Intake and Output 03/31/18 04/01/18 19:00 07:00 Intake Total 1228 ml 375 ml Output Total 400 ml 2650 ml Balance 828 ml -2275 ml Intake Oral 918 ml 320 ml IV Total 310 ml 55 ml Output Urine Total 400 ml 550 ml Hemodialysis UF 2100 ml Laboratory Tests 03/31/18 08:40: Arterial Blood pH 7.436, Arterial Blood Partial Pressure CO2 32.3L, Arterial Blood Partial Pressure O2 108.2H, Arterial Blood HCO3 21.2L, Arterial Blood Oxygen Saturation 96.8, Arterial Blood Base Excess -2.4, Elieser Test Positive 03/31/18 13:28: White Blood Count 16.4H, Red Blood Count 2.94L, Hemoglobin 8.0L, Hematocrit 24.4L, Mean Corpuscular Volume 83, Mean Corpuscular Hemoglobin 27.1, Mean Corpuscular Hemoglobin Concent 32.6, Red Cell Distribution Width 13.7, Platelet Count 373, Mean Platelet Volume 5.6L, Neutrophils (%) (Auto) 80.1H, Lymphocytes (%) (Auto) 13.8L, Monocytes (%) (Auto) 4.7, Eosinophils (%) (Auto) 0.9, Basophils (%) (Auto) 0.5 03/31/18 18:00: White Blood Count 15.2H, Red Blood Count 3.18L, Hemoglobin 8.9L, Hematocrit 25.8L, Mean Corpuscular Volume 81, Mean Corpuscular Hemoglobin 28.1, Mean Corpuscular Hemoglobin Concent 34.7, Red Cell Distribution Width 13.9, Platelet Count 391, Mean Platelet Volume 5.3L, Neutrophils (%) (Auto) 76.4H, Lymphocytes (%) (Auto) 17.1L, Monocytes (%) (Auto) 4.8, Eosinophils (%) (Auto) 0.9, Basophils (%) (Auto) 0.8 04/01/18 05:00: Prothrombin Time 11.8H, Prothromb Time International Ratio 1.1, Sodium Level 132L, Potassium Level 4.3, Chloride Level 97L, Carbon Dioxide Level 28, Anion Gap 7, Blood Urea Nitrogen 66H, Creatinine 3.2H, Estimat Glomerular Filtration Rate 22.1, Glucose Level 130H, Calcium Level 7.7L Height (Feet): 5 Height (Inches): 11.00 Weight (Pounds): 220 Objective WDWN reduced breath sounds with occasional rhonchi [id number] tachy without MRG NABS nontender no HSM no CC noted edema nonfocal Paddy Boss MD Apr 01, 2018 07:35
--- NOTE | 2018-04-01 08:09 | Nephrology Progress Note ---
Assessment/Plan Assessment/Plan 1. MAGALI- multifact ATN (sepsis/vanc) - HD x # 3 today - avoid any nephrotoxins 2. HyperK+ resolved 3. Sepsis- Endocarditis with TV vegetations - await Tx to hospital with CV surgeon 4. MOF- Renal/Liver/Cardiac with primary source of endocarditis, Abx per ID 5. GI Bleed- PPI gtt - INR 3, gave 2 units FFP 6. Uremia- resolved with HD Subjective Date patient seen: Apr 01, 2018 Time patient seen: 08:07 ROS Limited/Unobtainable: No Constitutional: Reports: malaise, weakness Allergies: Coded Allergies: No Known Allergies (Unverified , 12/11/13) Subjective Patient in ICU. BP stable. Awaiting Tx to higher level care Objective Last 24 Hour Vital Signs Date Time Temp Pulse Resp B/P (MAP) Pulse Ox O2 Delivery O2 Flow Rate FiO2 04/01/18 06:07 103 26 151/86 (107) 100 04/01/18 05:00 102 26 146/84 (104) 100 04/01/18 04:00 98.0 105 28 146/93 (110) 100 98.0 04/01/18 04:00 Venturi Mask 10.0 04/01/18 04:00 102 04/01/18 03:00 112 25 126/72 (90) 98 04/01/18 02:00 110 24 126/72 (90) 97 04/01/18 01:00 110 24 128/48 (74) 95 04/01/18 00:00 Non-Rebreather 15.0 04/01/18 00:00 98.4 108 18 143/83 (103) 98 98.4 03/31/18 23:00 110 24 143/83 (103) 100 03/31/18 22:00 107 24 145/94 (111) 100 03/31/18 21:00 107 24 133/90 (104) 100 03/31/18 20:00 Non-Rebreather 15.0 100 03/31/18 20:00 107 24 139/74 (95) 100 03/31/18 20:00 Non-Rebreather 15.0 03/31/18 20:00 104 03/31/18 20:00 99 Non-Rebreather 15.0 100 03/31/18 19:37 Simple Mask 15.0 100 03/31/18 19:00 97.8 111 24 106/66 (79) 100 97.8 03/31/18 18:00 109 24 138/86 (103) 100 03/31/18 17:44 97.8 03/31/18 17:00 97.8 102 25 129/83 (98) 100 97.8 03/31/18 16:20 Non-Rebreather 15.0 100 03/31/18 16:00 102 24 139/84 (102) 100 03/31/18 16:00 104 03/31/18 16:00 Non-Rebreather 15.0 03/31/18 15:00 106 24 151/86 (107) 100 03/31/18 14:00 112 25 143/90 (107) 98 03/31/18 13:58 98.7 03/31/18 13:00 110 21 132/82 (99) 97 03/31/18 12:59 98.7 03/31/18 12:00 110 21 132/82 (99) 97 03/31/18 12:00 111 03/31/18 12:00 Non-Rebreather 15.0 03/31/18 11:00 98.7 109 21 135/80 (98) 97 98.7 03/31/18 10:00 110 21 136/81 (99) 97 03/31/18 09:00 111 21 129/88 (102) 97 Intake and Output 03/31/18 04/01/18 19:00 07:00 Intake Total 1228 ml 375 ml Output Total 400 ml 2650 ml Balance 828 ml -2275 ml Intake Oral 918 ml 320 ml IV Total 310 ml 55 ml Output Urine Total 400 ml 550 ml Hemodialysis UF 2100 ml Laboratory Tests 03/31/18 08:40: Arterial Blood pH 7.436, Arterial Blood Partial Pressure CO2 32.3L, Arterial Blood Partial Pressure O2 108.2H, Arterial Blood HCO3 21.2L, Arterial Blood Oxygen Saturation 96.8, Arterial Blood Base Excess -2.4, Elieser Test Positive 03/31/18 13:28: White Blood Count 16.4H, Red Blood Count 2.94L, Hemoglobin 8.0L, Hematocrit 24.4L, Mean Corpuscular Volume 83, Mean Corpuscular Hemoglobin 27.1, Mean Corpuscular Hemoglobin Concent 32.6, Red Cell Distribution Width 13.7, Platelet Count 373, Mean Platelet Volume 5.6L, Neutrophils (%) (Auto) 80.1H, Lymphocytes (%) (Auto) 13.8L, Monocytes (%) (Auto) 4.7, Eosinophils (%) (Auto) 0.9, Basophils (%) (Auto) 0.5 03/31/18 18:00: White Blood Count 15.2H, Red Blood Count 3.18L, Hemoglobin 8.9L, Hematocrit 25.8L, Mean Corpuscular Volume 81, Mean Corpuscular Hemoglobin 28.1, Mean Corpuscular Hemoglobin Concent 34.7, Red Cell Distribution Width 13.9, Platelet Count 391, Mean Platelet Volume 5.3L, Neutrophils (%) (Auto) 76.4H, Lymphocytes (%) (Auto) 17.1L, Monocytes (%) (Auto) 4.8, Eosinophils (%) (Auto) 0.9, Basophils (%) (Auto) 0.8 04/01/18 05:00: White Blood Count [Pending], Red Blood Count [Pending], Hemoglobin [Pending], Hematocrit [Pending], Mean Corpuscular Volume [Pending], Mean Corpuscular Hemoglobin [Pending], Mean Corpuscular Hemoglobin Concent [Pending], Red Cell Distribution Width [Pending], Platelet Count [Pending], Mean Platelet Volume [ Pending], Neutrophils (%) (Auto) [Pending], Lymphocytes (%) (Auto) [Pending], Monocytes (%) (Auto) [Pending], Eosinophils (%) (Auto) [Pending], Basophils (%) (Auto) [Pending], Prothrombin Time 11.8H, Prothromb Time International Ratio 1.1 , Activated Partial Thromboplast Time 28, Sodium Level 132L, Potassium Level 4.3 , Chloride Level 97L, Carbon Dioxide Level 28, Anion Gap 7, Blood Urea Nitrogen 66H, Creatinine 3.2H, Estimat Glomerular Filtration Rate 22.1, Glucose Level 130H, Calcium Level 7.7L Height (Feet): 5 Height (Inches): 11.00 Weight (Pounds): 220 General Appearance: WD/WN, no apparent distress EENT: normal ENT inspection Neck: normal alignment, supple Cardiovascular: normal rate, regular rhythm Respiratory/Chest: chest wall non-tender, rhonchi - bilaterally Abdomen: normal bowel sounds, non tender, soft Edema: 1+ Arm (L), 1+ Arm (R), 1+ Leg (L), 1+ Leg (R), 1+ Pedal (L), 1+ Pedal ( R), 1+ Generalized Ho Villalpando M.D. Apr 01, 2018 08:09
[2018-04-01] MEDS: ceFAZolin sod 1 GM in D5W 55 ML IVP SCH ×2 (08:45→20:44)
[2018-04-01] MEDS: Phytonadione 10 mg/mL 1ml amp SUBQ SCH (08:47)
--- NOTE | 2018-04-01 09:00 | Consultation ---
DATE OF CONSULTATION: 03/31/2018 GASTROENTEROLOGY CONSULTATION CONSULTING PHYSICIAN: Angelia Hendrickson M.D. CHIEF COMPLAINT: I was asked to see this patient for evaluation of anemia and hemoptysis. HISTORY OF PRESENT ILLNESS: The patient is a 37-year-old man, who came in to the hospital with Staph aureus endocarditis. He is in the intensive care unit with septic emboli and documented endocarditis. He has been a heroin addict and has had intravenous drug use. There is some shortness of breath and chest x-ray shows cavitary lung lesions with septic emboli. He had some hemoptysis yesterday, which prompted this consultation because initially there was some thought that it may be hematemesis, however, further evaluation of nursing, documentation per nursing reports showed the patient actually coughed up blood. He has had no previous history of gastrointestinal bleeding. He also has anemia, but also has renal failure. There is no melena reported. PAST MEDICAL HISTORY: Otherwise negative. MEDICATIONS: See chart list for details. FAMILY HISTORY: Noncontributory. SOCIAL HISTORY: The patient has intravenous heroin use as described above. PHYSICAL EXAMINATION: GENERAL: A debilitated white man, seen in the intensive care unit. HEENT: Normocephalic and atraumatic. NECK: Supple. CHEST: Reveals scattered rhonchi. CARDIOVASCULAR: Revealed tachycardic heart rate. ABDOMEN: Soft. Good bowel sounds. EXTREMITIES: No edema, but there was diffuse red siegel and papules. LABORATORY DATA: Noted. ASSESSMENT: This patient presents with hemoptysis, which is presumed to be due to his cavitary lung lesions and septic emboli. Management will be directed with antibiotic treatment. The proton-pump inhibitor can be switched to once daily and anemia can be controlled with transfusion as necessary. There is no indication for any gastrointestinal endoscopy at this time. RECOMMENDATIONS: Per above discussion and per orders written in the chart. Thank you for asking me to participate in the care of this patient. Angelia Hendrickson M.D. DR: MARIO JOB#: [id number] CC: JOIE
--- NOTE | 2018-04-01 09:35 | Diagnostic Imaging Report ---
Clinical Indication: Shortness of breath Technique: Spiral acquisitions obtained through the chest. No IV contrast utilized, reason not stated. Multiplanar reconstructions generated. Total dose length product 887.29 mGycm. CTDIvol(s) 26.15 mGy. Dose reduction achieved using automated exposure control Comparison: 03/24/2018 Findings: There has been interim increase in the amount of pleural fluid bilaterally, pleural effusions there are now large. There is increased compressive atelectasis, now resulting in atelectasis of most of the left lower lobe and entire right lower lobe. Bilateral dense confluent parenchymal opacities are probably overall unchanged in size and extent, although comparison is somewhat difficult given the increased amount of atelectasis resulting from the pleural fluid. Less dense more diffuse consolidation in the left upper lobe has definitely decreased in extent from the prior study, however. Areas of cavitation or bronchiectasis are seen within several of the nodules. This is also evident previously. Previously demonstrated distal tracheal mural secretions are no longer evident. Again demonstrated is a right jugular central venous catheter. There is increased pericardial fluid. The heart size is borderline enlarged. There is again demonstrated edema of the mediastinal fat. Prominent but not frankly enlarged lymph nodes are seen in the mediastinum. Numerous prominent but not frankly enlarged bilateral axillary nodes are again demonstrated. There is increased edema of the chest wall. Esophagus is unremarkable. The bones are unremarkable. Included upper upper abdominal viscera are unremarkable. Impression: Since 03/24/2018, increased bilateral pleural effusions, with resultant increased compressive atelectasis of the lower lobes; right lower lobe now completely atelectatic Bilateral nodular and confluent opacities are again demonstrated, probably not significantly changed in size and extent. These may represent areas of neoplasm or may be infectious/inflammatory in nature. Given that some of the cavitation has the appearance of bronchiectasis, it is also possible that some of these represent residua of chronic fibrotic changes. Decreased left upper lobe background infiltrate Increased pericardial effusion Stable borderline cardiomegaly Increased chest wall edema Prominent but not frankly enlarged mediastinal axillary nodes This agrees with the preliminary interpretation provided overnight by [facility] teleradiology service. The CT scanner at [facility] is accredited by the [employer] and the scans are performed using protocols designed to limit radiation exposure to as low as reasonably achievable to attain images of sufficient resolution adequate for diagnostic evaluation.
[2018-04-01 09:43] LABS: BASOPHILS % (AUTO) 0.7 % (0.0-2.0); EOSINOPHILS % (AUTO) 0.6 % (0.0-3.0); HEMATOCRIT 26.6 % (42.0-52.0); HEMOGLOBIN 8.7 G/DL (14.2-18.0); LYMPHOCYTES % (AUTO) 15.9 % (20.0-45.0); MEAN CORPUSCULAR VOLUME 82 FL (80-99); MONOCYTES % (AUTO) 4.8 % (1.0-10.0); NEUTROPHILS % (AUTO) 77.9 % (45.0-75.0); PLATELET COUNT 405 K/UL (150-450); RED BLOOD COUNT 3.26 M/UL (4.70-6.10); RED CELL DISTRIBUTION WIDTH 13.1 % (11.6-14.8); WHITE BLOOD COUNT 15.3 K/UL (4.8-10.8)
[2018-04-01] MEDS ORDERED: Lidocaine 1% Plain 30 ml INJ SCH (10:15)
[2018-04-01] MEDS: LORazepam Inj 2mg/ml 1ml IV PRN ×2 (10:45→15:21)
[2018-04-01] MEDS: Tylenol #3 tab (300mg/30mg) ORAL PRN ×2 (10:45→21:13)
--- NOTE | 2018-04-01 12:30 | Pre-Procedure Note/Attestation ---
Pre-Procedure Note/Attestation Complete Prior to Procedure Planned Procedure: right Procedure Narrative: thoracentesis Indications for Procedure Pre-Operative Diagnosis: pleural effusion Attestation I attest that I discussed the nature of the procedure; its benefits; risks and complications; and alternatives (and the risks and benefits of such alternatives ), prior to the procedure, with the patient (or the patient's legal community engagement representative). I attest that, if there was a reasonable possibility of needing a blood transfusion, the patient (or the patient's legal community engagement representative) was given the [facility] standardized written summary, pursuant to the [place] Blood Safety Act ([place] Health and Safety Code # 1645, as amended). I attest that I re-evaluated the patient just prior to the surgery and that there has been no change in the patient's H&P, except as documented below: Tommy Davis MD Apr 01, 2018 12:30
--- NOTE | 2018-04-01 12:44 | Brief Operative Note ---
Immediate Post Operative Note Operative Note Pre-op Diagnosis: pleural effusion Procedure: thoracentesis Post-op Diagnosis: same as pre-op Findings: consistent w/pre-op dx studies Surgeon: Reyes DAVIS Anesthesia: local Specimen: yes - blood tinged fluid Complications: none Fluids: none Implant(s) used?: No Tommy Davis MD Apr 01, 2018 12:44
--- NOTE | 2018-04-01 13:04 | Infectious Diseases Prog Note ---
Assessment/Plan Assessment/Plan A 1. staph aureus sepsis 2. staph aureus UTI 3. 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 leucocytosis improving 5. renal failure started on HD 6. substance abuse 7. vasculitic rash 8. Hyponatremia 9. anemia 10. Hepatitis C 11. Pleural effusion s/p thoracentesis P 1. continue Ancef 2. transfer pending 3. f/u pleural culture Subjective ROS Limited/Unobtainable: No Constitutional: Reports: fatigue Respiratory: Reports: other - had thoracentesis 200 cc bloody fluid is removed Genitourinary: Reports: other - testicular pain & swelling Skin: Reports: rash Allergies: Coded Allergies: No Known Allergies (Unverified , 12/11/13) Objective Vital Signs Last 24 Hour Vital Signs Date Time Temp Pulse Resp B/P (MAP) Pulse Ox O2 Delivery O2 Flow Rate FiO2 04/01/18 12:00 Venturi Mask 10.0 04/01/18 11:00 110 21 143/93 (110) 97 04/01/18 10:00 103 21 132/86 (101) 100 108 04/01/18 09:05 Room Air 04/01/18 09:05 94 Room Air 04/01/18 09:00 103 16 128/83 (98) 100 101 04/01/18 08:00 103 18 125/72 (89) 100 101 04/01/18 08:00 Venturi Mask 10.0 04/01/18 08:00 112 04/01/18 07:00 97.6 103 19 127/72 (90) 100 97.6 103 04/01/18 06:07 103 26 151/86 (107) 100 04/01/18 05:00 102 26 146/84 (104) 100 04/01/18 04:00 98.0 105 28 146/93 (110) 100 98.0 04/01/18 04:00 Venturi Mask 10.0 04/01/18 04:00 102 04/01/18 03:00 112 25 126/72 (90) 98 04/01/18 02:00 110 24 126/72 (90) 97 04/01/18 01:00 110 24 128/48 (74) 95 04/01/18 00:00 Non-Rebreather 15.0 04/01/18 00:00 98.4 108 18 143/83 (103) 98 98.4 03/31/18 23:00 110 24 143/83 (103) 100 03/31/18 22:00 107 24 145/94 (111) 100 03/31/18 21:00 107 24 133/90 (104) 100 03/31/18 20:00 Non-Rebreather 15.0 100 03/31/18 20:00 107 24 139/74 (95) 100 03/31/18 20:00 Non-Rebreather 15.0 03/31/18 20:00 104 03/31/18 20:00 99 Non-Rebreather 15.0 100 03/31/18 19:37 Simple Mask 15.0 100 03/31/18 19:00 97.8 111 24 106/66 (79) 100 97.8 03/31/18 18:00 109 24 138/86 (103) 100 03/31/18 17:44 97.8 03/31/18 17:00 97.8 102 25 129/83 (98) 100 97.8 03/31/18 16:20 Non-Rebreather 15.0 100 03/31/18 16:00 102 24 139/84 (102) 100 03/31/18 16:00 104 03/31/18 16:00 Non-Rebreather 15.0 03/31/18 15:00 106 24 151/86 (107) 100 03/31/18 14:00 112 25 143/90 (107) 98 03/31/18 13:58 98.7 03/31/18 13:00 110 21 132/82 (99) 97 03/31/18 12:59 98.7 Height (Feet): 5 Height (Inches): 11.00 Weight (Pounds): 220 HEENT: mucous membranes moist Respiratory/Chest: lungs clear, decreased breath sounds Cardiovascular: tachycardia, other - RIJ HD line Abdomen: soft, non tender Genitourinary: other - scotal edema Extremities: other - edema of legs Skin: rash, other - fading Neurologic/Psychiatric: alert, oriented x 3, responsive Laboratory Tests Test 03/31/18 13:28 03/31/18 18:00 04/01/18 05:00 04/01/18 09:20 White Blood Count 16.4 K/UL (4.8-10.8) H 15.2 K/UL (4.8-10.8) H 15.3 K/UL (4.8-10.8) H Red Blood Count 2.94 M/UL (4.70-6.10) L 3.18 M/UL (4.70-6.10) L 3.26 M/UL (4.70-6.10) L Hemoglobin 8.0 G/DL (14.2-18.0) L 8.9 G/DL (14.2-18.0) L 8.7 G/DL (14.2-18.0) L Hematocrit 24.4 % (42.0-52.0) L 25.8 % (42.0-52.0) L 26.6 % (42.0-52.0) L Mean Corpuscular Volume 83 FL (80-99) 81 FL (80-99) 82 FL (80-99) Mean Corpuscular Hemoglobin 27.1 PG (27.0-31.0) 28.1 PG (27.0-31.0) 26.9 PG (27.0-31.0) L Mean Corpuscular Hemoglobin Concent 32.6 G/DL (32.0-36.0) 34.7 G/DL (32.0-36.0) 32.8 G/DL (32.0-36.0) Red Cell Distribution Width 13.7 % (11.6-14.8) 13.9 % (11.6-14.8) 13.1 % (11.6-14.8) Platelet Count 373 K/UL (150-450) 391 K/UL (150-450) 405 K/UL (150-450) Mean Platelet Volume 5.6 FL (6.5-10.1) L 5.3 FL (6.5-10.1) L 5.4 FL (6.5-10.1) L Neutrophils (%) (Auto) 80.1 % (45.0-75.0) H 76.4 % (45.0-75.0) H 77.9 % (45.0-75.0) H Lymphocytes (%) (Auto) 13.8 % (20.0-45.0) L 17.1 % (20.0-45.0) L 15.9 % (20.0-45.0) L Monocytes (%) (Auto) 4.7 % (1.0-10.0) 4.8 % (1.0-10.0) 4.8 % (1.0-10.0) Eosinophils (%) (Auto) 0.9 % (0.0-3.0) 0.9 % (0.0-3.0) 0.6 % (0.0-3.0) Basophils (%) (Auto) 0.5 % (0.0-2.0) 0.8 % (0.0-2.0) 0.7 % (0.0-2.0) Prothrombin Time 11.8 SEC (9.30-11.50) H Prothromb Time International Ratio 1.1 (0.9-1.1) Activated Partial Thromboplast Time 28 SEC (23-33) Sodium Level 132 MMOL/L (136-145) L Potassium Level 4.3 MMOL/L (3.5-5.1) Chloride Level 97 MMOL/L (98-107) L Carbon Dioxide Level 28 MMOL/L (21-32) Anion Gap 7 mmol/L (5-15) Blood Urea Nitrogen 66 mg/dL (7-18) H Creatinine 3.2 MG/DL (0.55-1.30) H Estimat Glomerular Filtration Rate 22.1 mL/min (>60) Glucose Level 130 MG/DL (74-106) H Calcium Level 7.7 MG/DL (8.5-10.1) L Current Medications Medications (Trade) Dose Ordered Sig/Zach Route PRN Reason Start Time Stop Time Status Last Admin Dose Admin Acetaminophen (Tylenol) 650 mg Q4H PRN ORAL Mild Pain/Temp > 100.5 03/30/18 19:00 04/21/18 18:59 04/01/18 05:39 Acetaminophen/ Codeine Phosphate (Tylenol #3) 1 tab Q6H PRN ORAL For SEVERE PAIN 03/31/18 16:37 04/07/18 16:36 04/01/18 10:45 Al Hydroxide/Mg Hydroxide (Mylanta) 30 ml Q4H PRN ORAL Nausea & Vomiting 03/30/18 21:00 04/22/18 16:59 Bisacodyl (Dulcolax) 10 mg DAILYPRN PRN ORAL Constipation 03/30/18 19:00 04/27/18 18:59 Cefazolin Sodium 1 gm/Dextrose 55 ml @ 110 mls/hr Q12HR IVP 03/30/18 21:00 04/06/18 20:59 04/01/18 08:45 Chlorhexidine Gluconate (Ayala-Hex 2%) 1 applic DAILY@2000 TOPIC 03/30/18 20:00 04/22/18 19:59 03/31/18 20:32 Lorazepam (Ativan 2mg/ml 1ml) 1 mg Q4H PRN IV For Anxiety 03/30/18 19:00 04/06/18 18:59 04/01/18 10:45 Ondansetron HCl (Zofran) 4 mg Q6H PRN IVP Nausea & Vomiting 03/30/18 19:00 04/22/18 18:59 Pantoprazole (Protonix) 40 mg DAILY ORAL 04/01/18 09:00 05/01/18 08:59 04/01/18 08:45 Phytonadione (Vitamin K) 10 mg DAILY SUBQ 04/01/18 09:00 04/02/18 09:01 04/01/18 08:47 Zolpidem Tartrate (Ambien) 5 mg HSPRN PRN ORAL Insomnia 03/31/18 00:00 04/07/18 00:00 03/30/18 23:57 Rakesh Michaud MD Apr 01, 2018 13:04
[2018-04-01] MEDS ORDERED: Tubing IV Secondary IV ONE ×2 (14:46→16:59)
[2018-04-01] MEDS ORDERED: Tubing Blood Filter IV ONE (14:46)
[2018-04-01] MEDS ORDERED: NS 275ml ONE (14:46)
--- NOTE | 2018-04-01 17:03 | Diagnostic Imaging Report ---
Indications: Pleural effusion Technique: Ultrasound used to localize optimal puncture site. Sterile prepping and draping right chest. Local anesthesia with 1% lidocaine. Under real-time ultrasound guidance, puncture pleural space using thoracentesis needle. Stylet removed. Catheter placed to vacuum bottle suction. Total 1200 milliliters of blood tinged fluid aspirated. Patient tolerated procedure well, without immediate complication. Findings: Followup sonography demonstrates complete resolution of pleural fluid. Impression: Successful ultrasound-guided thoracentesis, yielding 1200 milliliters of blood tinged fluid
--- NOTE | 2018-04-01 17:11 | Diagnostic Imaging Report ---
Indication: Reason For Exam: SOB Technique: One view of the chest Comparison: 03/28/2018 Findings: There is some residual pleural thickening versus residual pleural fluid. No gross pneumothorax. Left-sided pleural effusion appears unchanged. Diffuse pulmonary parenchymal nodularity appears unchanged, but background diffuse parenchymal hazy opacity appears decreased. Right jugular central venous catheter is again demonstrated Impression: No radiographically evident complication, post thoracentesis Persistent pulmonary parenchymal nodularity, slightly improved background parenchymal hazy opacity, over 4 days Other findings as noted
--- NOTE | 2018-04-01 19:59 | Cardiology Report ---
APPROVED REPORT EKG Measurement Heart [id number] Sinus tachycardia Abnormal ECG
[2018-04-01] MEDS: Dyna-Hex 2% Top Sol 2oz TOPIC SCH (20:44)
--- NOTE | 2018-04-01 23:08 | Cardiology Progress Note ---
Assessment/Plan Assessment/Plan 1. 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 Requires TV repair in view of embolization and presence of immunologic phenomena , Awaiting transfer to a facility that provides CT surgery. Normal LVEF. 2. Sinus tachycardia due to sepsis/SIRS. 3. Hypoxemic respiratory failure. 4. Systemic inflammatory response disease/septic embolization 5. Proteinuria with hypoalbuminemia. 6. Hemoptysis/pulmonary hemorrhage, ? mycotic aneurysm. May require bronchoscopy. Subjective Subjective Transferred to ICU. Sinus tachycardia at 118. On simple mask. s/p R thoracentesis, removing 200 cc bloody fluid Objective Last 24 Hour Vital Signs Date Time Temp Pulse Resp B/P (MAP) Pulse Ox O2 Delivery O2 Flow Rate FiO2 04/01/18 21:00 118 25 105/87 (93) 97 04/01/18 20:40 Simple Mask 10.0 100 04/01/18 20:00 98.4 115 24 118/68 (85) 100 98.4 04/01/18 19:58 98 Room Air 04/01/18 19:58 Venturi Mask 12.0 50 04/01/18 19:00 115 22 110/71 (84) 100 04/01/18 18:00 118 17 138/81 (100) 100 04/01/18 17:20 116 04/01/18 17:00 Venturi Mask 10.0 100 04/01/18 17:00 98.4 98.4 04/01/18 16:22 97.6 04/01/18 16:00 116 22 149/85 (106) 100 04/01/18 16:00 Venturi Mask 10.0 04/01/18 15:23 97.4 04/01/18 15:00 117 22 143/88 (106) 94 04/01/18 14:00 112 21 148/91 (110) 97 04/01/18 13:00 110 21 143/97 (112) 97 04/01/18 12:00 117 04/01/18 12:00 Venturi Mask 10.0 04/01/18 12:00 97.6 109 19 143/96 (112) 100 97.6 103 04/01/18 11:44 97.6 04/01/18 11:00 110 21 143/93 (110) 97 04/01/18 10:00 103 21 132/86 (101) 100 108 04/01/18 09:05 Room Air 04/01/18 09:05 94 Room Air 04/01/18 09:00 103 16 128/83 (98) 100 101 04/01/18 08:00 103 18 125/72 (89) 100 101 04/01/18 08:00 Venturi Mask 10.0 04/01/18 08:00 112 04/01/18 07:00 97.6 103 19 127/72 (90) 100 97.6 103 04/01/18 06:07 103 26 151/86 (107) 100 04/01/18 05:00 102 26 146/84 (104) 100 04/01/18 04:00 98.0 105 28 146/93 (110) 100 98.0 04/01/18 04:00 Venturi Mask 10.0 04/01/18 04:00 102 04/01/18 03:00 112 25 126/72 (90) 98 04/01/18 02:00 110 24 126/72 (90) 97 04/01/18 01:00 110 24 128/48 (74) 95 04/01/18 00:00 Non-Rebreather 15.0 04/01/18 00:00 98.4 108 18 143/83 (103) 98 98.4 Intake and Output 03/31/18 04/01/18 19:00 07:00 Intake Total 1228 ml 375 ml Output Total 400 ml 2650 ml Balance 828 ml -2275 ml Intake Oral 918 ml 320 ml IV Total 310 ml 55 ml Output Urine Total 400 ml 550 ml Hemodialysis UF 2100 ml 2D Echo: LVEF 55%, severe TR with TV vegetation, RVSP 36 mmHg Laboratory Tests Test 04/01/18 05:00 04/01/18 09:20 04/01/18 12:20 04/01/18 13:20 Prothrombin Time 11.8 SEC (9.30-11.50) H Prothromb Time International Ratio 1.1 (0.9-1.1) Activated Partial Thromboplast Time 28 SEC (23-33) Sodium Level 132 MMOL/L (136-145) L Potassium Level 4.3 MMOL/L (3.5-5.1) Chloride Level 97 MMOL/L (98-107) L Carbon Dioxide Level 28 MMOL/L (21-32) Anion Gap 7 mmol/L (5-15) Blood Urea Nitrogen 66 mg/dL (7-18) H Creatinine 3.2 MG/DL (0.55-1.30) H Estimat Glomerular Filtration Rate 22.1 mL/min (>60) Glucose Level 130 MG/DL (74-106) H Calcium Level 7.7 MG/DL (8.5-10.1) L White Blood Count 15.3 K/UL (4.8-10.8) H Red Blood Count 3.26 M/UL (4.70-6.10) L Hemoglobin 8.7 G/DL (14.2-18.0) L Hematocrit 26.6 % (42.0-52.0) L Mean Corpuscular Volume 82 FL (80-99) Mean Corpuscular Hemoglobin 26.9 PG (27.0-31.0) L Mean Corpuscular Hemoglobin Concent 32.8 G/DL (32.0-36.0) Red Cell Distribution Width 13.1 % (11.6-14.8) Platelet Count 405 K/UL (150-450) Mean Platelet Volume 5.4 FL (6.5-10.1) L Neutrophils (%) (Auto) 77.9 % (45.0-75.0) H Lymphocytes (%) (Auto) 15.9 % (20.0-45.0) L Monocytes (%) (Auto) 4.8 % (1.0-10.0) Eosinophils (%) (Auto) 0.6 % (0.0-3.0) Basophils (%) (Auto) 0.7 % (0.0-2.0) Body Fluid Source Thoracentesis Body Fluid Volume 24 mL Body Fluid Appearance [place] [address] /CUMM Body Fluid Total Nucleated Cells 1800 /CUMM Body Fluid Polynuclear WBCs (%) 69 % Body Fluid Mononuclear WBCs (%) 24 % Body Fluid Mesothelial Cells (%) 7 % Body Fluid Lactate Dehydrogenase Pending Objective HEENT: Atraumatic and normocephalic. Anicteric. Conjunctival pallor is present. Pupils are equal, round, and reactive to light and accommodation. Extraocular muscles are intact. NECK: JVP is less than 5 cm. No carotid bruits. Carotid upstrokes 2+ bilaterally. CARDIOVASCULAR: Normal S1, S2. Regular rate and rhythm. Tachycardic. No murmurs, gallops, or rubs. PMI is at fourth intercostal space in the midclavicular line. LUNGS: Bilateral crackles. ABDOMEN: Soft, nontender, and nondistended. No hepatosplenomegaly. Positive bowel sounds. EXTREMITIES: Bilateral lower extremity edema, patches of nonblanching erythematous rash, now painful to palpation. Alvarado Lee MD Apr 01, 2018 23:08
[2018-04-02] VITALS (16 sets, daily range): BP systolic 94–154; BP diastolic 49–94
[2018-04-02] MEDS: LORazepam Inj 2mg/ml 1ml IV PRN ×3 (00:55→21:28)
[2018-04-02] MEDS: Tylenol #3 tab (300mg/30mg) ORAL PRN ×2 (03:11→20:13)
[2018-04-02 05:45] LABS: ANION GAP 7 mmol/L (5-15); BLOOD UREA NITROGEN 60 mg/dL (7-18); CALCIUM 7.4 MG/DL (8.5-10.1); CARBON DIOXIDE 26 MMOL/L (21-32); CHLORIDE 100 MMOL/L (98-107); CREATININE 2.8 MG/DL (0.55-1.30); POTASSIUM 4.1 MMOL/L (3.5-5.1); SODIUM 133 MMOL/L (136-145)
--- NOTE | 2018-04-02 08:12 | General Progress Note ---
Assessment/Plan Assessment/Plan 1. CT consistent with septic emboli. 2. Heroin abuse. 3. Elevated liver enzymes 4. Significantly reduced albumin. 5. Severe protein-calorie malnutrition 6. Lower extremity edema. negative venous 7. Hypoxemia. 8. Tachycardia. 9. Leukocytosis. 10. Sepsis. 11.endocarditis 12. coagulopathy 13. hemoptysis 14. petechia PLAN needs emergent transfer for cardiac surgery IV antibiotics guarded monitor imaging HD per renal monitor labs and UO case management involved Subjective Allergies: Coded Allergies: No Known Allergies (Unverified , 12/11/13) Subjective events noted in ICU and stable hemodynamicall nursing notes reviewed Objective Last 24 Hour Vital Signs Date Time Temp Pulse Resp B/P (MAP) Pulse Ox O2 Delivery O2 Flow Rate FiO2 04/02/18 07:00 110 25 136/82 (100) 100 04/02/18 06:00 110 20 124/88 (100) 94 04/02/18 05:00 110 19 116/69 (85) 94 04/02/18 04:00 Simple Mask 10.0 04/02/18 04:00 99.3 109 22 126/82 (97) 100 99.3 04/02/18 03:33 107 04/02/18 03:00 115 27 136/92 (107) 100 04/02/18 02:00 108 21 140/87 (104) 100 04/02/18 01:00 116 25 99/62 (74) 94 04/02/18 00:00 118 04/02/18 00:00 99.2 119 22 144/88 (106) 98 99.2 04/02/18 00:00 Simple Mask 10.0 04/01/18 23:00 116 27 144/86 (105) 99 04/01/18 22:00 117 26 129/84 (99) 99 04/01/18 21:00 118 25 105/87 (93) 97 04/01/18 20:40 Simple Mask 10.0 100 04/01/18 20:00 98.4 115 24 118/68 (85) 100 98.4 04/01/18 20:00 Simple Mask 10.0 04/01/18 20:00 118 04/01/18 19:58 98 Room Air 04/01/18 19:58 Venturi Mask 12.0 50 04/01/18 19:00 115 22 110/71 (84) 100 04/01/18 18:00 118 17 138/81 (100) 100 04/01/18 17:20 116 04/01/18 17:00 Venturi Mask 10.0 100 04/01/18 17:00 98.4 98.4 04/01/18 16:22 97.6 04/01/18 16:00 116 22 149/85 (106) 100 04/01/18 16:00 Venturi Mask 10.0 04/01/18 15:23 97.4 04/01/18 15:00 117 22 143/88 (106) 94 04/01/18 14:00 112 21 148/91 (110) 97 04/01/18 13:00 110 21 143/97 (112) 97 04/01/18 12:00 117 04/01/18 12:00 Venturi Mask 10.0 04/01/18 12:00 97.6 109 19 143/96 (112) 100 97.6 103 04/01/18 11:44 97.6 04/01/18 11:00 110 21 143/93 (110) 97 04/01/18 10:00 103 21 132/86 (101) 100 108 04/01/18 09:05 Room Air 04/01/18 09:05 94 Room Air 04/01/18 09:00 103 16 128/83 (98) 100 101 Intake and Output 04/01/18 04/02/18 19:00 07:00 Intake Total 315 ml 555 ml Output Total 2000 ml 3860 ml Balance -1685 ml -3305 ml Intake Oral 260 ml 420 ml IV Total 55 ml 55 ml Other 80 ml Output Urine Total 800 ml 760 ml Hemodialysis UF 3100 ml Other 1200 ml # Voids 1 # Bowel Movements 2 Laboratory Tests 04/01/18 09:20: White Blood Count 15.3H, Red Blood Count 3.26L, Hemoglobin 8.7L, Hematocrit 26.6L, Mean Corpuscular Volume 82, Mean Corpuscular Hemoglobin 26.9L, Mean Corpuscular Hemoglobin Concent 32.8, Red Cell Distribution Width 13.1, Platelet Count 405, Mean Platelet Volume 5.4L, Neutrophils (%) (Auto) 77.9H, Lymphocytes (%) (Auto) 15.9L, Monocytes (%) (Auto) 4.8, Eosinophils (%) (Auto) 0.6, Basophils (%) (Auto) 0.7 04/01/18 12:20: Body Fluid Source Thoracentesis, Body Fluid Volume 24, Body Fluid Appearance Cloudy, [place] [address], Body Fluid Total Nucleated Cells 1800, Body Fluid Polynuclear WBCs (%) 69, Body Fluid Mononuclear WBCs (%) 24, Body Fluid Mesothelial Cells (%) 7 04/01/18 13:20: Body Fluid Lactate Dehydrogenase [Pending] 04/02/18 05:00: Sodium Level 133L, Potassium Level 4.1, Chloride Level 100, Carbon Dioxide Level 26, Anion Gap 7, Blood Urea Nitrogen 60H, Creatinine 2.8H, Estimat Glomerular Filtration Rate 25.8, Glucose Level 143H, Calcium Level 7.4L Height (Feet): 5 Height (Inches): 11.00 Weight (Pounds): 213 Objective WDWN reduced breath sounds with occasional rhonchi [id number] tachy without MRG NABS nontender no HSM no CC noted edema nonfocal Paddy Boss MD Apr 02, 2018 08:12
--- NOTE | 2018-04-02 08:18 | Nephrology Progress Note ---
Assessment/Plan Assessment/Plan 1. MAGALI- multifact ATN (sepsis/vanc) - Hold HD today - Patient no longer hyperkalemic or uremic 2. HyperK+ resolved 3. Sepsis- Endocarditis with TV vegetations - await Tx to hospital with CV surgeon 4. MOF- Renal/Liver/Cardiac with primary source of endocarditis, Abx per ID 5. GI Bleed- PPI gtt 6. Uremia- resolved with HD Subjective Date patient seen: Apr 02, 2018 Time patient seen: 08:16 ROS Limited/Unobtainable: No Constitutional: Reports: malaise, weakness Gastrointestinal/Abdominal: Reports: nausea Allergies: Coded Allergies: No Known Allergies (Unverified , 12/11/13) All Systems: reviewed and negative except above Subjective Patient in ICU. BP stable. Resting. Had 3 HD treatments Objective Last 24 Hour Vital Signs Date Time Temp Pulse Resp B/P (MAP) Pulse Ox O2 Delivery O2 Flow Rate FiO2 04/02/18 07:00 110 25 136/82 (100) 100 04/02/18 06:00 110 20 124/88 (100) 94 04/02/18 05:00 110 19 116/69 (85) 94 04/02/18 04:00 Simple Mask 10.0 04/02/18 04:00 99.3 109 22 126/82 (97) 100 99.3 04/02/18 03:33 107 04/02/18 03:00 115 27 136/92 (107) 100 04/02/18 02:00 108 21 140/87 (104) 100 04/02/18 01:00 116 25 99/62 (74) 94 04/02/18 00:00 118 04/02/18 00:00 99.2 119 22 144/88 (106) 98 99.2 04/02/18 00:00 Simple Mask 10.0 04/01/18 23:00 116 27 144/86 (105) 99 04/01/18 22:00 117 26 129/84 (99) 99 04/01/18 21:00 118 25 105/87 (93) 97 04/01/18 20:40 Simple Mask 10.0 100 04/01/18 20:00 98.4 115 24 118/68 (85) 100 98.4 04/01/18 20:00 Simple Mask 10.0 04/01/18 20:00 118 04/01/18 19:58 98 Room Air 04/01/18 19:58 Venturi Mask 12.0 50 04/01/18 19:00 115 22 110/71 (84) 100 04/01/18 18:00 118 17 138/81 (100) 100 04/01/18 17:20 116 04/01/18 17:00 Venturi Mask 10.0 100 04/01/18 17:00 98.4 98.4 04/01/18 16:22 97.6 04/01/18 16:00 116 22 149/85 (106) 100 04/01/18 16:00 Venturi Mask 10.0 04/01/18 15:23 97.4 04/01/18 15:00 117 22 143/88 (106) 94 04/01/18 14:00 112 21 148/91 (110) 97 04/01/18 13:00 110 21 143/97 (112) 97 04/01/18 12:00 117 04/01/18 12:00 Venturi Mask 10.0 04/01/18 12:00 97.6 109 19 143/96 (112) 100 97.6 103 04/01/18 11:44 97.6 04/01/18 11:00 110 21 143/93 (110) 97 04/01/18 10:00 103 21 132/86 (101) 100 108 04/01/18 09:05 Room Air 04/01/18 09:05 94 Room Air 04/01/18 09:00 103 16 128/83 (98) 100 101 Intake and Output 04/01/18 04/02/18 19:00 07:00 Intake Total 315 ml 555 ml Output Total 2000 ml 3860 ml Balance -1685 ml -3305 ml Intake Oral 260 ml 420 ml IV Total 55 ml 55 ml Other 80 ml Output Urine Total 800 ml 760 ml Hemodialysis UF 3100 ml Other 1200 ml # Voids 1 # Bowel Movements 2 Laboratory Tests 04/01/18 09:20: White Blood Count 15.3H, Red Blood Count 3.26L, Hemoglobin 8.7L, Hematocrit 26.6L, Mean Corpuscular Volume 82, Mean Corpuscular Hemoglobin 26.9L, Mean Corpuscular Hemoglobin Concent 32.8, Red Cell Distribution Width 13.1, Platelet Count 405, Mean Platelet Volume 5.4L, Neutrophils (%) (Auto) 77.9H, Lymphocytes (%) (Auto) 15.9L, Monocytes (%) (Auto) 4.8, Eosinophils (%) (Auto) 0.6, Basophils (%) (Auto) 0.7 04/01/18 12:20: Body Fluid Source Thoracentesis, Body Fluid Volume 24, Body Fluid Appearance Cloudy, [place] Fl[place] [address], Body Fluid Total Nucleated Cells 1800, Body Fluid Polynuclear WBCs (%) 69, Body Fluid Mononuclear WBCs (%) 24, Body Fluid Mesothelial Cells (%) 7 04/01/18 13:20: Body Fluid Lactate Dehydrogenase [Pending] 04/02/18 05:00: Sodium Level 133L, Potassium Level 4.1, Chloride Level 100, Carbon Dioxide Level 26, Anion Gap 7, Blood Urea Nitrogen 60H, Creatinine 2.8H, Estimat Glomerular Filtration Rate 25.8, Glucose Level 143H, Calcium Level 7.4L Height (Feet): 5 Height (Inches): 11.00 Weight (Pounds): 213 General Appearance: WD/WN, no apparent distress EENT: PERRL/EOMI, normal ENT inspection Neck: non-tender, normal alignment, supple Cardiovascular: normal peripheral pulses, normal rate, regular rhythm Abdomen: normal bowel sounds, non tender, soft Edema: 1+ Arm (L), 1+ Arm (R), 1+ Leg (L), 1+ Leg (R), 1+ Pedal (L), 1+ Pedal ( R), 1+ Generalized Ho Villalpando M.D. Apr 02, 2018 08:18
[2018-04-02] MEDS: Phytonadione 10 mg/mL 1ml amp SUBQ SCH (09:22)
[2018-04-02] MEDS: ceFAZolin sod 1 GM in D5W 55 ML IVP SCH ×2 (09:22→20:14)
--- NOTE | 2018-04-02 10:45 | Infectious Diseases Prog Note ---
Assessment/Plan Assessment/Plan antibiotics : ancef A 1. staph aureus sepsis 2. staph aureus UTI 3. 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 leucocytosis improving 5. renal failure improving 6. substance abuse P 1. continue ancef 2. will follow up cultures Subjective Constitutional: Denies: fever, chills Respiratory: Denies: shortness of breath, dry cough Gastrointestinal/Abdominal: Denies: nausea, vomiting, diarrhea Musculoskeletal: Denies: pain Allergies: Coded Allergies: No Known Allergies (Unverified , 12/11/13) Objective Vital Signs Last 24 Hour Vital Signs Date Time Temp Pulse Resp B/P (MAP) Pulse Ox O2 Delivery O2 Flow Rate FiO2 04/02/18 10:00 106 20 138/88 (105) 100 04/02/18 09:00 108 22 142/85 (104) 100 04/02/18 08:00 98.5 110 18 140/80 (100) 100 98.5 04/02/18 08:00 Simple Mask 10.0 04/02/18 08:00 102 04/02/18 07:20 Venturi Mask 12.0 50 04/02/18 07:20 100 Venturi Mask 12.0 50 04/02/18 07:00 110 25 136/82 (100) 100 04/02/18 06:00 110 20 124/88 (100) 94 04/02/18 05:00 110 19 116/69 (85) 94 04/02/18 04:00 Simple Mask 10.0 04/02/18 04:00 99.3 109 22 126/82 (97) 100 99.3 04/02/18 03:33 107 04/02/18 03:00 115 27 136/92 (107) 100 04/02/18 02:00 108 21 140/87 (104) 100 04/02/18 01:00 116 25 99/62 (74) 94 04/02/18 00:00 118 04/02/18 00:00 99.2 119 22 144/88 (106) 98 99.2 04/02/18 00:00 Simple Mask 10.0 04/01/18 23:00 116 27 144/86 (105) 99 04/01/18 22:00 117 26 129/84 (99) 99 04/01/18 21:00 118 25 105/87 (93) 97 04/01/18 20:40 Simple Mask 10.0 100 04/01/18 20:00 98.4 115 24 118/68 (85) 100 98.4 04/01/18 20:00 Simple Mask 10.0 04/01/18 20:00 118 04/01/18 19:58 98 Room Air 04/01/18 19:58 Venturi Mask 12.0 50 04/01/18 19:00 115 22 110/71 (84) 100 04/01/18 18:00 118 17 138/81 (100) 100 04/01/18 17:20 116 04/01/18 17:00 Venturi Mask 10.0 100 04/01/18 17:00 98.4 98.4 04/01/18 16:22 97.6 04/01/18 16:00 116 22 149/85 (106) 100 04/01/18 16:00 Venturi Mask 10.0 04/01/18 15:23 97.4 04/01/18 15:00 117 22 143/88 (106) 94 04/01/18 14:00 112 21 148/91 (110) 97 04/01/18 13:00 110 21 143/97 (112) 97 04/01/18 12:00 117 04/01/18 12:00 Venturi Mask 10.0 04/01/18 12:00 97.6 109 19 143/96 (112) 100 97.6 103 04/01/18 11:44 97.6 04/01/18 11:00 110 21 143/93 (110) 97 Height (Feet): 5 Height (Inches): 11.00 Weight (Pounds): 213 Respiratory/Chest: lungs clear Cardiovascular: normal rate, regular rhythm, no gallop/murmur Abdomen: soft, non tender Extremities: other - + edema bilaterally, right IJ catheter Skin: rash - erythematous siegel Microbiology Date/Time Source Procedure Growth Status 04/01/18 13:20 Body Fluid Aspirate Gram Stain Pending Resulted 04/01/18 13:20 Body Fluid Aspirate Body Fluid Culture - Preliminary Resulted Laboratory Tests Test 04/01/18 12:20 04/01/18 13:20 04/02/18 05:00 Body Fluid Source Thoracentesis Body Fluid Volume 24 mL Body Fluid Appearance Cloudy [place] Fl[place] RBC 21348 /CUMM Body Fluid Total Nucleated Cells 1800 /CUMM Body Fluid Polynuclear WBCs (%) 69 % Body Fluid Mononuclear WBCs (%) 24 % Body Fluid Mesothelial Cells (%) 7 % Body Fluid Lactate Dehydrogenase Pending Sodium Level 133 MMOL/L (136-145) L Potassium Level 4.1 MMOL/L (3.5-5.1) Chloride Level 100 MMOL/L (98-107) Carbon Dioxide Level 26 MMOL/L (21-32) Anion Gap 7 mmol/L (5-15) Blood Urea Nitrogen 60 mg/dL (7-18) H Creatinine 2.8 MG/DL (0.55-1.30) H Estimat Glomerular Filtration Rate 25.8 mL/min (>60) Glucose Level 143 MG/DL (74-106) H Calcium Level 7.4 MG/DL (8.5-10.1) L Current Medications Medications (Trade) Dose Ordered Sig/Zach Route PRN Reason Start Time Stop Time Status Last Admin Dose Admin Acetaminophen (Tylenol) 650 mg Q4H PRN ORAL Mild Pain/Temp > 100.5 03/30/18 19:00 04/21/18 18:59 04/02/18 09:56 Acetaminophen/ Codeine Phosphate (Tylenol #3) 1 tab Q6H PRN ORAL For SEVERE PAIN 03/31/18 16:37 04/07/18 16:36 04/02/18 03:11 Al Hydroxide/Mg Hydroxide (Mylanta) 30 ml Q4H PRN ORAL Nausea & Vomiting 03/30/18 21:00 04/22/18 16:59 Bisacodyl (Dulcolax) 10 mg DAILYPRN PRN ORAL Constipation 03/30/18 19:00 04/27/18 18:59 04/01/18 19:24 Cefazolin Sodium 1 gm/Dextrose 55 ml @ 110 mls/hr Q12HR IVP 03/30/18 21:00 04/06/18 20:59 04/02/18 09:22 Chlorhexidine Gluconate (Ayala-Hex 2%) 1 applic DAILY@2000 TOPIC 03/30/18 20:00 04/22/18 19:59 04/01/18 20:44 Lorazepam (Ativan 2mg/ml 1ml) 1 mg Q4H PRN IV For Anxiety 03/30/18 19:00 04/06/18 18:59 04/02/18 00:55 Ondansetron HCl (Zofran) 4 mg Q6H PRN IVP Nausea & Vomiting 03/30/18 19:00 04/22/18 18:59 Pantoprazole (Protonix) 40 mg DAILY ORAL 04/01/18 09:00 05/01/18 08:59 04/02/18 09:22 Zolpidem Tartrate (Ambien) 5 mg HSPRN PRN ORAL Insomnia 03/31/18 00:00 04/07/18 00:00 03/30/18 23:57 LAURA ABEBE Apr 02, 2018 10:45
[2018-04-02] MEDS ORDERED: Bisacodyl EC 5mg tab ORAL PRN (14:00)
[2018-04-02] MEDS ORDERED: Dyna-Hex 2% Top Sol 2oz TOPIC SCH (20:00)
[2018-04-02] MEDS ORDERED: Zolpidem 5mg tab ORAL PRN (21:00)
--- NOTE | 2018-04-02 21:57 | General Progress Note ---
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 - Staph endocarditis with systemic emboli - Coagulopathy, presumed due to DIC - renal failure - poor prognosis Recommendations - po solids OK - PPI - transfuse PRN - monitor labs - abx - no plans for endoscopy Subjective Allergies: Coded Allergies: No Known Allergies (Unverified , 12/11/13) Subjective above noted No abdominal complaints Objective Last 24 Hour Vital Signs Date Time Temp Pulse Resp B/P (MAP) Pulse Ox O2 Delivery O2 Flow Rate FiO2 04/02/18 20:13 98.9 04/02/18 20:00 98.0 100 28 154/94 (114) 99 98.0 04/02/18 16:00 Simple Mask 10.0 04/02/18 16:00 97.7 108 24 135/85 (102) 97 97.7 04/02/18 16:00 106 04/02/18 16:00 98.9 04/02/18 14:52 98.9 04/02/18 13:00 98.9 108 22 120/86 (97) 98 98.9 04/02/18 12:00 110 04/02/18 12:00 107 20 127/86 (100) 100 04/02/18 12:00 Simple Mask 10.0 04/02/18 11:00 108 20 94/49 (64) 100 04/02/18 10:00 106 20 138/88 (105) 100 04/02/18 09:00 108 22 142/85 (104) 100 04/02/18 08:00 98.5 110 18 140/80 (100) 100 98.5 04/02/18 08:00 Simple Mask 10.0 04/02/18 08:00 102 04/02/18 07:20 Venturi Mask 12.0 50 04/02/18 07:20 100 Venturi Mask 12.0 50 04/02/18 07:00 110 25 136/82 (100) 100 04/02/18 06:00 110 20 124/88 (100) 94 04/02/18 05:00 110 19 116/69 (85) 94 04/02/18 04:00 Simple Mask 10.0 04/02/18 04:00 99.3 109 22 126/82 (97) 100 99.3 04/02/18 03:33 107 04/02/18 03:00 115 27 136/92 (107) 100 04/02/18 02:00 108 21 140/87 (104) 100 04/02/18 01:00 116 25 99/62 (74) 94 04/02/18 00:00 118 04/02/18 00:00 99.2 119 22 144/88 (106) 98 99.2 04/02/18 00:00 Simple Mask 10.0 04/01/18 23:00 116 27 144/86 (105) 99 04/01/18 22:00 117 26 129/84 (99) 99 Intake and Output 04/01/18 04/02/18 19:00 07:00 Intake Total 315 ml 555 ml Output Total 2000 ml 3860 ml Balance -1685 ml -3305 ml Intake Oral 260 ml 420 ml IV Total 55 ml 55 ml Other 80 ml Output Urine Total 800 ml 760 ml Hemodialysis UF 3100 ml Other 1200 ml # Voids 1 # Bowel Movements 2 Laboratory Tests 04/02/18 05:00: Sodium Level 133L, Potassium Level 4.1, Chloride Level 100, Carbon Dioxide Level 26, Anion Gap 7, Blood Urea Nitrogen 60H, Creatinine 2.8H, Estimat Glomerular Filtration Rate 25.8, Glucose Level 143H, Calcium Level 7.4L Height (Feet): 5 Height (Inches): 11.00 Weight (Pounds): 213 Objective WDWN NCAT supple CTA RRR abd soft No edema (+) Angelia Go MD Apr 02, 2018 21:57
--- NOTE | 2018-04-02 23:56 | Cardiology Progress Note ---
Assessment/Plan Assessment/Plan 1. 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 Requires TV repair in view of embolization and presence of immunologic phenomena , Awaiting transfer to a facility that provides CT surgery. Normal LVEF. 2. Sinus tachycardia due to sepsis/SIRS. 3. Hypoxemic respiratory failure on simple mask. 4. Systemic inflammatory response disease/septic embolization 5. Proteinuria with hypoalbuminemia. 6. Hemoptysis Subjective Subjective Sinus tachycardia at 100. On simple mask. Objective Last 24 Hour Vital Signs Date Time Temp Pulse Resp B/P (MAP) Pulse Ox O2 Delivery O2 Flow Rate FiO2 04/02/18 20:13 98.9 04/02/18 20:00 98.0 100 28 154/94 (114) 99 98.0 04/02/18 16:00 Simple Mask 10.0 04/02/18 16:00 97.7 108 24 135/85 (102) 97 97.7 04/02/18 16:00 106 04/02/18 16:00 98.9 04/02/18 14:52 98.9 04/02/18 13:00 98.9 108 22 120/86 (97) 98 98.9 04/02/18 12:00 110 04/02/18 12:00 107 20 127/86 (100) 100 04/02/18 12:00 Simple Mask 10.0 04/02/18 11:00 108 20 94/49 (64) 100 04/02/18 10:00 106 20 138/88 (105) 100 04/02/18 09:00 108 22 142/85 (104) 100 04/02/18 08:00 98.5 110 18 140/80 (100) 100 98.5 04/02/18 08:00 Simple Mask 10.0 04/02/18 08:00 102 04/02/18 07:20 Venturi Mask 12.0 50 04/02/18 07:20 100 Venturi Mask 12.0 50 04/02/18 07:00 110 25 136/82 (100) 100 04/02/18 06:00 110 20 124/88 (100) 94 04/02/18 05:00 110 19 116/69 (85) 94 04/02/18 04:00 Simple Mask 10.0 04/02/18 04:00 99.3 109 22 126/82 (97) 100 99.3 04/02/18 03:33 107 04/02/18 03:00 115 27 136/92 (107) 100 04/02/18 02:00 108 21 140/87 (104) 100 04/02/18 01:00 116 25 99/62 (74) 94 04/02/18 00:00 118 04/02/18 00:00 99.2 119 22 144/88 (106) 98 99.2 04/02/18 00:00 Simple Mask 10.0 Intake and Output 04/01/18 04/02/18 19:00 07:00 Intake Total 315 ml 555 ml Output Total 2000 ml 3860 ml Balance -1685 ml -3305 ml Intake Oral 260 ml 420 ml IV Total 55 ml 55 ml Other 80 ml Output Urine Total 800 ml 760 ml Hemodialysis UF 3100 ml Other 1200 ml # Voids 1 # Bowel Movements 2 2D Echo: LVEF 55%, severe TR with TV vegetation, RVSP 36 mmHg Laboratory Tests Test 04/02/18 05:00 Sodium Level 133 MMOL/L (136-145) L Potassium Level 4.1 MMOL/L (3.5-5.1) Chloride Level 100 MMOL/L (98-107) Carbon Dioxide Level 26 MMOL/L (21-32) Anion Gap 7 mmol/L (5-15) Blood Urea Nitrogen 60 mg/dL (7-18) H Creatinine 2.8 MG/DL (0.55-1.30) H Estimat Glomerular Filtration Rate 25.8 mL/min (>60) Glucose Level 143 MG/DL (74-106) H Calcium Level 7.4 MG/DL (8.5-10.1) L Microbiology Date/Time Source Procedure Growth Status 04/01/18 13:20 Body Fluid Aspirate Gram Stain - Final Resulted 04/01/18 13:20 Body Fluid Aspirate Body Fluid Culture - Preliminary Resulted Objective HEENT: Atraumatic and normocephalic. Anicteric. Conjunctival pallor is present. Pupils are equal, round, and reactive to light and accommodation. Extraocular muscles are intact. NECK: JVP is less than 5 cm. No carotid bruits. Carotid upstrokes 2+ bilaterally. CARDIOVASCULAR: Normal S1, S2. Regular rate and rhythm. Tachycardic. No murmurs, gallops, or rubs. PMI is at fourth intercostal space in the midclavicular line. LUNGS: Bilateral crackles. ABDOMEN: Soft, nontender, and nondistended. No hepatosplenomegaly. Positive bowel sounds. EXTREMITIES: Bilateral lower extremity edema, patches of nonblanching erythematous rash, now painful to palpation. Alvarado Lee MD Apr 02, 2018 23:56
[2018-04-03] VITALS: BP 147/85
[2018-04-03] MEDS: LORazepam Inj 2mg/ml 1ml IV PRN ×3 (03:12→15:30)
[2018-04-03] MEDS: Tylenol #3 tab (300mg/30mg) ORAL PRN ×2 (03:13→10:56)
[2018-04-03 04:00] VITALS: BP 145/85
[2018-04-03 06:00] LABS: ANION GAP 6 mmol/L (5-15); BLOOD UREA NITROGEN 62 mg/dL (7-18); CALCIUM 7.5 MG/DL (8.5-10.1); CARBON DIOXIDE 28 MMOL/L (21-32); CHLORIDE 101 MMOL/L (98-107); CREATININE 2.2 MG/DL (0.55-1.30); PHOSPHORUS 3.7 MG/DL (2.5-4.9); POTASSIUM 4.4 MMOL/L (3.5-5.1); SODIUM 135 MMOL/L (136-145)
[2018-04-03 08:00] VITALS: BP 139/88
[2018-04-03] MEDS: ceFAZolin sod 1 GM in D5W 55 ML IVP SCH (08:56)
--- NOTE | 2018-04-03 09:24 | Nephrology Progress Note ---
Assessment/Plan Assessment/Plan 1. MAGALI- multifact ATN (sepsis/vanc) - Hold HD today again. Monitor 2. HyperK+ resolved 3. Sepsis- Endocarditis with TV vegetations - await Tx to hospital with CV surgeon 4. MOF- Renal/Liver/Cardiac with primary source of endocarditis, Abx per ID 5. GI Bleed- PPI gtt 6. Scrotal Edema- lasix IV today Subjective Date patient seen: Apr 03, 2018 Time patient seen: 09:23 ROS Limited/Unobtainable: No Constitutional: Reports: malaise, weakness Allergies: Coded Allergies: No Known Allergies (Unverified , 12/11/13) All Systems: reviewed and negative except above Subjective Patient feels better. C/O scrotal edema Objective Last 24 Hour Vital Signs Date Time Temp Pulse Resp B/P (MAP) Pulse Ox O2 Delivery O2 Flow Rate FiO2 04/03/18 04:00 Simple Mask 10.0 04/03/18 04:00 98.3 118 24 145/85 (105) 99 98.3 04/03/18 04:00 108 04/03/18 00:00 Simple Mask 10.0 04/03/18 00:00 98.1 110 24 147/85 (105) 100 98.1 04/03/18 00:00 103 04/02/18 20:13 98.9 04/02/18 20:00 Simple Mask 10.0 04/02/18 20:00 98.0 100 28 154/94 (114) 99 98.0 04/02/18 20:00 107 04/02/18 16:00 Simple Mask 10.0 04/02/18 16:00 97.7 108 24 135/85 (102) 97 97.7 04/02/18 16:00 106 04/02/18 16:00 98.9 04/02/18 14:52 98.9 04/02/18 13:00 98.9 108 22 120/86 (97) 98 98.9 04/02/18 12:00 110 04/02/18 12:00 107 20 127/86 (100) 100 04/02/18 12:00 Simple Mask 10.0 04/02/18 11:00 108 20 94/49 (64) 100 04/02/18 10:00 106 20 138/88 (105) 100 Intake and Output 04/02/18 04/03/18 19:00 07:00 Intake Total 105 ml 460 ml Output Total 1000 ml 1800 ml Balance -895 ml -1340 ml Intake Oral 50 ml 350 ml IV Total 55 ml 110 ml Output Urine Total 1000 ml 1800 ml # Bowel Movements 2 Laboratory Tests 04/03/18 04:00: Sodium Level 135L, Potassium Level 4.4, Chloride Level 101, Carbon Dioxide Level 28, Anion Gap 6, Blood Urea Nitrogen 62H, Creatinine 2.2H, Estimat Glomerular Filtration Rate 34.0, Glucose Level 111H, Calcium Level 7.5L, Phosphorus Level 3.7 Height (Feet): 5 Height (Inches): 11.00 Weight (Pounds): 215 General Appearance: WD/WN, no apparent distress EENT: PERRL/EOMI Neck: non-tender, normal alignment Cardiovascular: normal peripheral pulses, normal rate, regular rhythm Respiratory/Chest: lungs clear Abdomen: non tender, soft Edema: 1+ Arm (L), 1+ Arm (R), 1+ Leg (L), 1+ Leg (R), 1+ Pedal (L), 1+ Pedal ( R), 1+ Generalized Ho Villalpando M.D. Apr 03, 2018 09:24
[2018-04-03 12:00] VITALS: BP 144/93
--- NOTE | 2018-04-03 12:18 | Infectious Diseases Prog Note ---
Assessment/Plan Assessment/Plan antibiotics : ancef A 1. staph aureus sepsis 2. staph aureus UTI 3. 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 leucocytosis improving 5. renal failure improving 6. substance abuse P 1. continue ancef 2. will follow up cultures Subjective Constitutional: Denies: fever, chills Respiratory: Denies: shortness of breath, dry cough Gastrointestinal/Abdominal: Denies: nausea, vomiting, diarrhea Musculoskeletal: Reports: pain Allergies: Coded Allergies: No Known Allergies (Unverified , 12/11/13) Objective Vital Signs Last 24 Hour Vital Signs Date Time Temp Pulse Resp B/P (MAP) Pulse Ox O2 Delivery O2 Flow Rate FiO2 04/03/18 08:00 Simple Mask 10.0 04/03/18 08:00 110 04/03/18 08:00 98.1 107 22 139/88 (105) 91 98.1 04/03/18 04:00 Simple Mask 10.0 04/03/18 04:00 98.3 118 24 145/85 (105) 99 98.3 04/03/18 04:00 108 04/03/18 00:00 Simple Mask 10.0 04/03/18 00:00 98.1 110 24 147/85 (105) 100 98.1 04/03/18 00:00 103 04/02/18 20:13 98.9 04/02/18 20:00 Simple Mask 10.0 04/02/18 20:00 98.0 100 28 154/94 (114) 99 98.0 04/02/18 20:00 107 04/02/18 16:00 Simple Mask 10.0 04/02/18 16:00 97.7 108 24 135/85 (102) 97 97.7 04/02/18 16:00 106 04/02/18 16:00 98.9 04/02/18 14:52 98.9 04/02/18 13:00 98.9 108 22 120/86 (97) 98 98.9 Height (Feet): 5 Height (Inches): 11.00 Weight (Pounds): 215 Respiratory/Chest: lungs clear Cardiovascular: normal rate, regular rhythm, no gallop/murmur Abdomen: soft, non tender Extremities: other - right IJ catheter Skin: other - scratch siegel on arms and legs Microbiology Date/Time Source Procedure Growth Status 04/01/18 13:20 Body Fluid Aspirate Gram Stain - Final Resulted 04/01/18 13:20 Body Fluid Aspirate Body Fluid Culture - Preliminary NO GROWTH AFTER 24 HOURS Resulted Laboratory Tests Test 04/03/18 04:00 Sodium Level 135 MMOL/L (136-145) L Potassium Level 4.4 MMOL/L (3.5-5.1) Chloride Level 101 MMOL/L (98-107) Carbon Dioxide Level 28 MMOL/L (21-32) Anion Gap 6 mmol/L (5-15) Blood Urea Nitrogen 62 mg/dL (7-18) H Creatinine 2.2 MG/DL (0.55-1.30) H Estimat Glomerular Filtration Rate 34.0 mL/min (>60) Glucose Level 111 MG/DL (74-106) H Calcium Level 7.5 MG/DL (8.5-10.1) L Phosphorus Level 3.7 MG/DL (2.5-4.9) Current Medications Medications (Trade) Dose Ordered Sig/Zach Route PRN Reason Start Time Stop Time Status Last Admin Dose Admin Acetaminophen (Tylenol) 650 mg Q4H PRN ORAL Mild Pain/Temp > 100.5 04/02/18 14:00 04/21/18 13:59 04/02/18 14:52 Acetaminophen/ Codeine Phosphate (Tylenol #3) 1 tab Q6H PRN ORAL Severe Pain (Pain Scale 7-10) 04/02/18 16:45 04/07/18 16:36 04/03/18 10:56 Al Hydroxide/Mg Hydroxide (Mylanta) 30 ml Q4H PRN ORAL DYSPEPSIA 04/02/18 14:00 04/22/18 13:59 Bisacodyl (Dulcolax) 10 mg DAILYPRN PRN ORAL Constipation 04/02/18 14:00 04/27/18 13:59 Cefazolin Sodium 1 gm/Dextrose 55 ml @ 110 mls/hr Q8H IVP 04/03/18 17:00 04/10/18 16:59 Chlorhexidine Gluconate (Ayala-Hex 2%) 1 applic DAILY@2000 TOPIC 04/02/18 20:00 04/22/18 19:59 04/02/18 20:14 Lorazepam (Ativan 2mg/ml 1ml) 1 mg Q4H PRN IV For Anxiety 04/02/18 14:00 04/06/18 13:59 04/03/18 09:34 Ondansetron HCl (Zofran) 4 mg Q6H PRN IVP Nausea & Vomiting 04/02/18 19:00 04/22/18 18:59 Pantoprazole (Protonix) 40 mg DAILY ORAL 04/03/18 09:00 05/01/18 08:59 04/03/18 08:55 Zolpidem Tartrate (Ambien) 5 mg HSPRN PRN ORAL Insomnia 04/02/18 21:00 04/09/18 20:59 LAURA ABEBE Apr 03, 2018 12:18
[2018-04-03 16:00] VITALS: BP 152/98
--- NOTE | 2018-04-03 16:41 | Pulmonology Progress Note ---
Assessment/Plan Assessment/Plan Assessment/Plan 1. CT consistent with septic emboli, recent hemoptysis 2. Heroin abuse. 3. Elevated liver enzymes 4. Significantly reduced albumin. 5. Severe protein-calorie malnutrition 6. Lower extremity edema. negative venous 7. Hypoxemia. 8. Tachycardia. 9. Leukocytosis. 10. Sepsis. 11.endocarditis 12. coagulopathy 13. GI feels not GI bleed - rather hemoptysis PLAN monitor labs per ID continue antibiotics d/w cards guarded GI Dr Hendrickson TF PRN, keep HB >7, check INT Liquid diet per GI IV Protonix Subjective Allergies: Coded Allergies: No Known Allergies (Unverified , 12/11/13) Subjective bcx positive CT noted cards appreciated +endocarditis Objective Last 24 Hour Vital Signs Date Time Temp Pulse Resp B/P (MAP) Pulse Ox O2 Delivery O2 Flow Rate FiO2 03/26/18 04:00 98.1 104 20 126/77 (93) 99 98.1 03/26/18 04:00 110 03/26/18 00:00 99.0 102 24 125/73 (90) 95 99.0 03/26/18 00:00 103 03/25/18 20:00 99.1 102 24 152/89 (110) 98 99.1 03/25/18 20:00 110 03/25/18 19:08 Venturi Mask 15.0 55 03/25/18 19:08 96 Venturi Mask 15.0 55 03/25/18 18:47 98.3 03/25/18 16:00 105 03/25/18 16:00 98.3 109 26 145/85 (105) 98 98.3 03/25/18 15:57 98.3 03/25/18 15:27 98.7 03/25/18 14:45 100 28 122/82 100 Venturi Mask 55 03/25/18 14:30 98.7 102 25 126/84 100 Venturi Mask 55 98.7 03/25/18 14:15 98 27 133/76 100 Venturi Mask 55 03/25/18 14:09 210.4 97 29 100 03/25/18 14:05 210.4 77 28 100 03/25/18 14:00 102 29 128/84 100 Venturi Mask 55 03/25/18 13:50 100 30 127/79 100 Venturi Mask 55 03/25/18 13:44 99 100 28 125/77 100 Venturi Mask 55 99.0 03/25/18 12:00 Venturi Mask 15.0 03/25/18 12:00 98.5 24 138/85 (102) 99 98.5 03/25/18 12:00 101 03/25/18 11:10 98.2 03/25/18 09:00 Venturi Mask 15.0 03/25/18 08:05 98.4 03/25/18 08:00 98.6 103 24 133/78 (96) 99 98.6 03/25/18 08:00 Venturi Mask 15.0 03/25/18 08:00 102 Intake and Output 03/25/18 03/26/18 19:00 07:00 Intake Total 3150 ml 1351.800 ml Output Total 780 ml Balance 2370 ml 1351.800 ml Intake Oral 800 ml IV Total 2350 ml 1351.800 ml Output Urine Total 780 ml Laboratory Tests 03/25/18 08:50: Arterial Blood pH 7.496H, Arterial Blood Partial Pressure CO2 29.4L, Arterial Blood Partial Pressure O2 81.9, Arterial Blood HCO3 22.2, Arterial Blood Oxygen Saturation 95.0, Arterial Blood Base Excess -0.6, Elieser Test Positive 03/25/18 16:45: Random Vancomycin Level 17.2 03/26/18 03:00: Random Vancomycin Level 28.1 Height (Feet): 5 Height (Inches): 11.00 Weight (Pounds): 208 Objective WDWN mild sob reduced breath sounds bilaterally without rhonchi or wheeze [id number] tachy without MRG NABS nontender no HSM no CC noted edema nonfocal Subjective ROS Limited/Unobtainable: No Allergies: Coded Allergies: No Known Allergies (Unverified , 12/11/13) Objective Last 24 Hour Vital Signs Date Time Temp Pulse Resp B/P (MAP) Pulse Ox O2 Delivery O2 Flow Rate FiO2 04/03/18 16:00 Simple Mask 10.0 04/03/18 12:00 111 04/03/18 12:00 98.1 100 22 144/93 (110) 98 98.1 04/03/18 12:00 Simple Mask 10.0 04/03/18 08:00 Simple Mask 10.0 04/03/18 08:00 110 04/03/18 08:00 98.1 107 22 139/88 (105) 91 98.1 04/03/18 04:00 Simple Mask 10.0 04/03/18 04:00 98.3 118 24 145/85 (105) 99 98.3 04/03/18 04:00 108 04/03/18 00:00 Simple Mask 10.0 04/03/18 00:00 98.1 110 24 147/85 (105) 100 98.1 04/03/18 00:00 103 04/02/18 20:13 98.9 04/02/18 20:00 Simple Mask 10.0 04/02/18 20:00 98.0 100 28 154/94 (114) 99 98.0 04/02/18 20:00 107 Intake and Output 04/02/18 04/03/18 19:00 07:00 Intake Total 105 ml 460 ml Output Total 1000 ml 1800 ml Balance -895 ml -1340 ml Intake Oral 50 ml 350 ml IV Total 55 ml 110 ml Output Urine Total 1000 ml 1800 ml # Bowel Movements 2 Microbiology Date/Time Source Procedure Growth Status 04/01/18 13:20 Body Fluid Aspirate Gram Stain - Final Resulted 04/01/18 13:20 Body Fluid Aspirate Body Fluid Culture - Preliminary NO GROWTH AFTER 24 HOURS Resulted Laboratory Tests 04/03/18 04:00: Sodium Level 135L, Potassium Level 4.4, Chloride Level 101, Carbon Dioxide Level 28, Anion Gap 6, Blood Urea Nitrogen 62H, Creatinine 2.2H, Estimat Glomerular Filtration Rate 34.0, Glucose Level 111H, Calcium Level 7.5L, Phosphorus Level 3.7 Current Medications Medications (Trade) Dose Ordered Sig/Zach Route PRN Reason Start Time Stop Time Status Last Admin Dose Admin Acetaminophen (Tylenol) 650 mg Q4H PRN ORAL Mild Pain/Temp > 100.5 04/02/18 14:00 04/21/18 13:59 04/02/18 14:52 Acetaminophen/ Codeine Phosphate (Tylenol #3) 1 tab Q6H PRN ORAL Severe Pain (Pain Scale 7-10) 04/02/18 16:45 04/07/18 16:36 04/03/18 10:56 Al Hydroxide/Mg Hydroxide (Mylanta) 30 ml Q4H PRN ORAL DYSPEPSIA 04/02/18 14:00 04/22/18 13:59 Bisacodyl (Dulcolax) 10 mg DAILYPRN PRN ORAL Constipation 04/02/18 14:00 04/27/18 13:59 Cefazolin Sodium 1 gm/Dextrose 55 ml @ 110 mls/hr Q8H IVP 04/03/18 17:00 04/10/18 16:59 Chlorhexidine Gluconate (Ayala-Hex 2%) 1 applic DAILY@2000 TOPIC 04/02/18 20:00 04/22/18 19:59 04/02/18 20:14 Lorazepam (Ativan 2mg/ml 1ml) 1 mg Q4H PRN IV For Anxiety 04/02/18 14:00 04/06/18 13:59 04/03/18 15:30 Ondansetron HCl (Zofran) 4 mg Q6H PRN IVP Nausea & Vomiting 04/02/18 19:00 04/22/18 18:59 Pantoprazole (Protonix) 40 mg DAILY ORAL 04/03/18 09:00 05/01/18 08:59 04/03/18 08:55 Zolpidem Tartrate (Ambien) 5 mg HSPRN PRN ORAL Insomnia 04/02/18 21:00 04/09/18 20:59 Omkar Cedeno MD Apr 03, 2018 16:41
--- NOTE | 2018-04-03 16:59 | Cardiology Progress Note ---
Assessment/Plan Assessment/Plan 1. 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 Requires TV repair in view of embolization and presence of immunologic phenomena , Awaiting transfer to a facility that provides CT surgery. Normal LVEF. 2. Sinus tachycardia due to sepsis/SIRS. 3. Hypoxemic respiratory failure on simple mask. 4. Systemic inflammatory response disease/septic embolization 5. Proteinuria with hypoalbuminemia. 6. Hemoptysis 7. Scrotal edema, agree with lasix. 8. Mild pulmonary HTN Subjective Subjective Sinus tachycardia at 110. On simple mask. Objective Last 24 Hour Vital Signs Date Time Temp Pulse Resp B/P (MAP) Pulse Ox O2 Delivery O2 Flow Rate FiO2 04/03/18 16:00 Simple Mask 10.0 04/03/18 16:00 98.2 97 24 152/98 (116) 99 98.2 04/03/18 16:00 94 04/03/18 12:00 111 04/03/18 12:00 98.1 100 22 144/93 (110) 98 98.1 04/03/18 12:00 Simple Mask 10.0 04/03/18 08:00 Simple Mask 10.0 04/03/18 08:00 110 04/03/18 08:00 98.1 107 22 139/88 (105) 91 98.1 04/03/18 04:00 Simple Mask 10.0 04/03/18 04:00 98.3 118 24 145/85 (105) 99 98.3 04/03/18 04:00 108 04/03/18 00:00 Simple Mask 10.0 04/03/18 00:00 98.1 110 24 147/85 (105) 100 98.1 04/03/18 00:00 103 04/02/18 20:13 98.9 04/02/18 20:00 Simple Mask 10.0 04/02/18 20:00 98.0 100 28 154/94 (114) 99 98.0 04/02/18 20:00 107 Cardiovascular: gallop/S3 Intake and Output 04/02/18 04/03/18 19:00 07:00 Intake Total 105 ml 460 ml Output Total 1000 ml 1800 ml Balance -895 ml -1340 ml Intake Oral 50 ml 350 ml IV Total 55 ml 110 ml Output Urine Total 1000 ml 1800 ml # Bowel Movements 2 2D Echo: LVEF 55%, severe TR with TV vegetation, RVSP 36 mmHg Laboratory Tests Test 04/03/18 04:00 Sodium Level 135 MMOL/L (136-145) L Potassium Level 4.4 MMOL/L (3.5-5.1) Chloride Level 101 MMOL/L (98-107) Carbon Dioxide Level 28 MMOL/L (21-32) Anion Gap 6 mmol/L (5-15) Blood Urea Nitrogen 62 mg/dL (7-18) H Creatinine 2.2 MG/DL (0.55-1.30) H Estimat Glomerular Filtration Rate 34.0 mL/min (>60) Glucose Level 111 MG/DL (74-106) H Calcium Level 7.5 MG/DL (8.5-10.1) L Phosphorus Level 3.7 MG/DL (2.5-4.9) Microbiology Date/Time Source Procedure Growth Status 04/01/18 13:20 Body Fluid Aspirate Gram Stain - Final Resulted 04/01/18 13:20 Body Fluid Aspirate Body Fluid Culture - Preliminary NO GROWTH AFTER 24 HOURS Resulted Objective HEENT: Atraumatic and normocephalic. Anicteric. Conjunctival pallor is present. Pupils are equal, round, and reactive to light and accommodation. Extraocular muscles are intact. NECK: JVP is less than 5 cm. No carotid bruits. Carotid upstrokes 2+ bilaterally. CARDIOVASCULAR: Normal S1, S2. Regular rate and rhythm. Tachycardic. No murmurs, gallops, or rubs. PMI is at fourth intercostal space in the midclavicular line. LUNGS: Bilateral crackles. ABDOMEN: Soft, nontender, and nondistended. No hepatosplenomegaly. Positive bowel sounds. EXTREMITIES: Bilateral lower extremity edema, patches of nonblanching erythematous rash, now painful to palpation. Alvarado Lee MD Apr 03, 2018 16:59
[2018-04-03] MEDS ORDERED: ceFAZolin sod 1 GM in D5W 55 ML IVP SCH (17:00)
--- NOTE | 2018-04-04 10:41 | Discharge Summary ---
Discharge Summary Discharge Summary _ DATE OF ADMISSION: 03/22/2018 DATE OF DISCHARGE: 04/03/2018 CONSULTANTS: Dr. Cande Villalpando [facility] H[facility]PITAL COURSE: Patient is a 37-year-old male, who presented with ED complaining of pain and swelling in the legs for the past few days. Also complained of shortness of breath and had been using heroine. He complained of inability to walk secondary to pain in the legs. On evaluation at ED, patient was noted to have generalized petechial/purpuric rashes consistent with septic emboli. Blood work showed elevated WBC. Platelet was 60. Chest x-ray with diffuse extensive bilateral interstitial disease. Multinodularity raising concern for multiple septic emboli. Several attempts were made to establish IV access, patient was hard stick due to history of IV drug abuse. A central venous catheter was placed to the right jugular. He was given aggressive hydration and was started on IV antibiotic. He was hypokalemic, potassium was repleted. He was then admitted for possible septic emboli, possible infective endocarditis. Executive Search Consultant was consulted. Possibility of infective endocarditis was high given thrombocytopenia and vasculitic rash. He was short of breath. Patient was transferred to [facility]. Chest CT showed scattered nodular densities in bilateral lung some with cavitation. There was mediastinal and bilateral hilar lymph nodes and a dependent consolidation in bilateral lungs. Blood culture was positive for gram-positive cocci. He was followed by infectious disease specialist and was given IV vancomycin. Zosyn was changed to Ancef. On 03/25/2018, he underwent trans-esophageal echocardiogram. Findings confirmed tricuspid valve endocarditis; severe tricuspid regurgitation with severe pulmonary hypertension; left ventricular systolic function was normal. Patient requires tricuspid valve repair in view of embolization and presence of immunologic phenomena, patient needs to be transferred to a facility that provides cardiothoracic surgery. Patient was referred to a higher level of care , and was placed on MAC list. His renal function had worsened. Body Piercer was consulted. Patient had acute kidney injury likely multifactorial ATN from underlying sepsis and vancomycin toxicity. Vancomycin was discontinued. He was given diuresis. Renal function was closely monitored as patient may eventually require hemodialysis. CT of the abdomen and pelvis did not show any renal abnormality nor hydronephrosis. Patient had hyperkalemia as a result of renal insufficiency. He was given Kayexalate. Hyponatremia was secondary to volume overload. He was having massive hemoptysis. He was transferred to ICU. Renal function continued to worsen. Patient required urgent dialysis. A temporary hemodialysis catheter was inserted to the left femoral. He was eventually started on hemodialysis. There was a drop in hemoglobin, and INR was elevated. He received packed RBC and FFP transfusion. He was placed on Protonix drip. He was seen by GI. On evaluation description was more suggestive of hemoptysis rather than hematemesis. PPI was changed to by mouth daily. No endoscopy needed. He was started on clear liquid diet. Diet advanced as tolerated. He underwent a repeat CT of the chest. There was noted increasing bilateral pleural effusion with resultant increased compressive atelectasis of the lower lobes. He underwent thoracentesis on the right chest yielding 1200 mL of blood tinged fluid. Uremia resolved with hemodialysis. Patient could not wait for transfer and signed out AMA. FINAL DIAGNOSES: Infective endocarditis with tricuspid regurgitation Staph aureus sepsis Septic emboli Acute Hypoxemic respiratory failure Acute kidney injury requiring hemodialysis Staph aureus UTI Heroine abuse Sinus tachycardia due to sepsis/SIRS Hemoptysis Mild pulmonary hypertension Proteinuria with hypoalbuminemia Coagulopathy Severe protein calorie malnutrition Hyperkalemia Hyponatremia DISPOSITION: Patient left AMA. I have been assigned to dictate discharge summary on this account, and I was not involved in the patient's management. Nia Cardoso NP Apr 04, 2018 10:41
--- NOTE | 2018-04-06 14:15 | Diagnostic Imaging Report ---
APPROVED REPORT CPT Code: 10498 Present Symptoms Comments: Right IJV line BILATERAL UPPER EXTREMITY: Imaging reveals patency of the internal jugular, subclavian, axillary and brachial veins. The cephalic and basilic veins are also patent. Doppler indicates normal spontaneous flow within these venous segments, bilaterally. Note: Left cephalic vein at upper level not well visualized. Incidental finding: An echogenic structure noted around right forearm area near basilic vein, measuring (0.9 cm x 0.7 cm).
== END 2018-04-03 17:12 | disposition left against medical advice (07) | DRG 720 ==
LOC: EMR 11:54 → EDBEDREQSVC 15:29 → ICU 16:06 → EDBEDREQ 16:19 → 2E 03-23 16:45 → 2W 03-24 16:00 → ICU 03-30 17:28 → 2W 04-02 13:36
PROC: 05HM33Z Insertion of Infusion Device into Right Internal Jugular Vein, Percutaneous Approach (ICD-10-PCS; 2018-03-22)
PROC: 5A1D70Z Performance of Urinary Filtration, Intermittent, Less than 6 Hours Per Day (ICD-10-PCS; principal; 2018-03-30)
PROC: 0W993ZZ Drainage of Right Pleural Cavity, Percutaneous Approach (ICD-10-PCS; 2018-04-01)
DX: A41.01 Sepsis due to Methicillin susceptible Staphylococcus aureus (principal); J96.01 Acute respiratory failure with hypoxia; D65 Disseminated intravascular coagulation [defibrination syndrome]; I76 Septic arterial embolism; E43 Unspecified severe protein-calorie malnutrition; D69.6 Thrombocytopenia, unspecified; N17.0 Acute kidney failure with tubular necrosis; E87.1 Hypo-osmolality and hyponatremia; R65.20 Severe sepsis without septic shock; F15.10 Other stimulant abuse, uncomplicated; F11.10 Opioid abuse, uncomplicated; Z68.30 Body mass index [BMI] 30.0-30.9, adult; R00.0 Tachycardia, unspecified; I01.1 Acute rheumatic endocarditis; D64.9 Anemia, unspecified; R21 Rash and other nonspecific skin eruption; E87.5 Hyperkalemia; E87.2 Acidosis; R04.2 Hemoptysis; N50.89 Other specified disorders of the male genital organs; I27.20 Pulmonary hypertension, unspecified; R80.9 Proteinuria, unspecified; N39.0 Urinary tract infection, site not specified; B18.2 Chronic viral hepatitis C; J90 Pleural effusion, not elsewhere classified; E87.6 Hypokalemia; F12.10 Cannabis abuse, uncomplicated
CPT/HCPCS: 36415; 36600; 71045; 71250; 74150; 76942; 80048; 80053; 80202; 80307; 81003; 82248; 82550; 82553; 82803; 83605; 83880; 84100; 84484; 85007; 85025; 85610; 85651; 85730; 86703; 86706; 86709; 86803; 86850; 86900; 86901; 86920; 86927; 87040; 87070; 87081; 87086; 87181; 87205; 88104; 89051; 93005; 93306; 93312; 93970; 94003; 94150; 94660; 94664; 94760; 99284; J2405; J8499

== ENCOUNTER 2018-06-05 16:09 | Emergency (ER) | payer MEDICAID ==
[~2018-06-05] VITALS: Ht 180.3 cm; Wt 86.2 kg
[2018-06-05 16:11] VITALS: BP 138/83
[2018-06-05] MEDS ORDERED: UNOBMED (16:19)
[2018-06-05 16:30] VITALS: BP 138/83
--- NOTE | 2018-06-05 16:35 | Emergency Room Report ---
History of Present Illness General Chief Complaint: Wound Recheck/Suture Removal Source: Patient Present Illness HPI Patient has a history of IV drug use and this subsequently developed acute endocarditis. Patient had a valve replacement performed April 09. He has sutures that are in place. He is supposed to go to a follow-up appointment on the fifth of this month. He came here for evaluation because he was thinking that perhaps he can get the sutures out earlier. Sutures are in place over his abdominal area. Sutures appear to be deep. Patient states that are so small amount of whitish discharge with sutures. He denies any erythema. No other injuries noted. Symptoms noted to be moderate.No other modifying factors. No other associated signs and symptoms. No other complaints were noted. Allergies: Coded Allergies: No Known Allergies (Unverified , 12/11/13) Patient History Past Medical History: none PSxH Narrative valve replacement Social History: Reports: drug use - Remote history of IV drug; Denies: smoking , alcohol use Reviewed Nursing Documentation: PMH: Agreed; PSxH: Agreed Nursing Documentation-PMH Past Medical History: No History, Except For Hx Cardiac Problems: Yes - right valve replacement Hx Hypertension: No Hx Pacemaker: No Hx Asthma: No Hx COPD: No Hx Diabetes: No Hx Cancer: No Hx Gastrointestinal Problems: No Hx Dialysis: No Hx Neurological Problems: No Hx Cerebrovascular Accident: No Hx Seizures: No Review of Systems All Other Systems: negative except mentioned in HPI Physical Exam Vital Signs Date Time Temp Pulse Resp B/P (MAP) Pulse Ox O2 Delivery O2 Flow Rate FiO2 06/05/18 16:11 98.2 91 17 138/83 98 Room Air 98.2 Sp02 EP Interpretation: reviewed, normal General Appearance: normal inspection, well appearing, no apparent distress, alert Head: atraumatic Eyes: bilateral eye normal inspection ENT: normal ENT inspection, hearing grossly normal, normal voice Neck: normal inspection, full range of motion, supple, no bony tend Respiratory: normal inspection, lungs clear, normal breath sounds, no respiratory distress, no retraction, no wheezing Cardiovascular #1: regular rate, rhythm, no edema Gastrointestinal: normal inspection, normal bowel sounds, non tender, soft, no guarding, no hernia Genitourinary: no CVA tenderness Musculoskeletal: normal inspection, back normal, normal range of motion Neurologic: normal inspection, alert, responsive, speech normal Psychiatric: normal inspection, judgement/insight normal, mood/affect normal Skin: other - Surgical scar on anterior chest wall healing, sutures in place. small amount of fibrious discharge, no cellulitis or abcess Medical Decision Making Diagnostic Impression: Primary Impression: Encounter for wound re-check ER Course Patient presents emergency department today complaining of a surgical wound in the abdomen. Differential considerations include abscess, cellulitis, normal healing. Patient's exam is fairly benign. The wound appears be healing. There is a small amount of fibrinous discharge from this sutures. Given the sutures could be deep I do not feel cultural taking the sutures out instead recommended follow-up with his physician as scheduled on the fifth of this month. Return to ER for any worsen symptoms as needed. Patient was given wound care instructions. Last Vital Signs Date Time Temp Pulse Resp B/P (MAP) Pulse Ox O2 Delivery O2 Flow Rate FiO2 06/05/18 16:30 98.2 78 17 138/83 98 Room Air 98.2 Status: improved Disposition: HOME, SELF-CARE Condition: Stable Patient Instructions: Wound Check Ming Martinez MD Jun 05, 2018 16:35
== END 2018-06-05 16:35 | disposition home or self-care (01) ==
LOC: EMR 16:28
DX: Z48.812 Encounter for surgical aftercare following surgery on the circulatory system (principal)
CPT/HCPCS: 99282